=== PATIENT | male | born 1955 | race Caucasian/White ===

== ENCOUNTER → 2021-09-02 10:06 | Outpatient (CLI) | payer MEDICARE, BC, SELFPAY | PROVIDERS: Visit Provider Ophthalmology | DX: Z01.812 Encounter for preprocedural laboratory examination (principal); Z20.822 Contact with and (suspected) exposure to COVID-19 | CPT/HCPCS: C9803; U0003; U0005 ==

== ENCOUNTER 2021-09-03 09:03 | Day surgery (SDC) | payer MEDICARE, MEDICAID, SELFPAY ==
[2021-09-03] VITALS (9 sets, daily range): BP systolic 109–137; BP diastolic 55–83; PULSE 63–79; RESP 16–19; TEMP 36.3–37.1; O2SAT 98–100; BMI 22.1
[2021-09-03 18:27] LABS: POC Glucose,Bedside 114 (70-110)
== END 2021-09-03 11:40 | disposition home or self-care (01) ==
PROVIDERS: Visit Provider Ophthalmology
DX: H26.9 Unspecified cataract (principal); E11.9 Type 2 diabetes mellitus without complications; Z72.0 Tobacco use
CPT/HCPCS: 66984; 82962; V2632

== ENCOUNTER → 2021-09-14 09:59 | Outpatient (CLI) | payer MEDICARE, BC, SELFPAY | PROVIDERS: Visit Provider Ophthalmology | DX: Z01.812 Encounter for preprocedural laboratory examination (principal); Z20.822 Contact with and (suspected) exposure to COVID-19 | CPT/HCPCS: C9803; U0003; U0005 ==

== ENCOUNTER 2021-09-17 07:56 | Day surgery (SDC) | payer MEDICARE, MEDICAID, SELFPAY ==
[2021-09-12 13:00] VITALS: BMI 22.5
[2021-09-17] VITALS (7 sets, daily range): BP systolic 111–129; BP diastolic 65–83; PULSE 66–78; RESP 16–18; TEMP 36.4–36.5; O2SAT 98–100
[2021-09-17 08:43] LABS: POC Glucose,Bedside 119 (70-110)
== END 2021-09-17 10:28 | disposition home or self-care (01) ==
LOC: OR 07:56
PROVIDERS: Visit Provider Ophthalmology
DX: H25.812 Combined forms of age-related cataract, left eye (principal); E11.9 Type 2 diabetes mellitus without complications
CPT/HCPCS: 66984; 82962; V2632

== ENCOUNTER 2024-02-17 13:51 | Emergency (ER) | payer MEDICARE, SELFPAY ==
[2024-02-17] VITALS (8 sets, daily range): BP systolic 114–137; BP diastolic 77–86; PULSE 68–86; RESP 13–18; TEMP 36.6; O2SAT 96–99; BMI 20.9; BMI 23.7
--- NOTE | 2024-02-17 13:53 | ECG_ITS ---
APPROVED REPORT Exam: Resting ECG HR:78 bpm ECG Measurements Heart Rate 78 AXES VA 202 P 75 QRSd 158 QRS -87 QT 400 T 94 QTc 433 Conclusion SINUS RHYTHM POSSIBLE RIGHT ATRIAL ENLARGEMENT [0.25mV P-WAVE] LEFT AXIS DEVIATION [QRS AXIS < -30] INTRAVENTRICULAR CONDUCTION DELAY [130+ ms QRS DURATION] ANTEROLATERAL MYOCARDIAL INFARCTION , PROBABLY RECENT [40+ ms Q WAVE IN I/aVL/V3-V6] UNCONFIRMED REPORT Electronically signed by : MAYITO ISSA, 02/19/2024 05:44:07
--- NOTE | 2024-02-17 13:55 | PC.NURSE ---
Provider Malik Jaquez at bedside, EKG obtained.
--- NOTE | 2024-02-17 13:56 | PC.NURSE ---
blood-work sent to lab, orders placed per protocol
--- NOTE | 2024-02-17 13:59 | XR_ITS ---
FINAL REPORT CLINICAL HISTORY: Shortness of breath, CP COMPARISON: None FINDINGS: The heart size is mildly enlarged. A left-sided pacemaker is noted. The mediastinum is normal. Chronic changes are noted in both lungs. There is no focal infiltrate or edema. There are no pleural effusions. There is no pneumothorax. There is no osseous abnormality. IMPRESSION: Mild cardiomegaly without acute cardiopulmonary process Reviewed, Interpreted and Dictated by Serjio Giles MD Transcribed by Nevin Wayne Authenticated and [facility]
--- NOTE | 2024-02-17 14:01 | ED_ITS ---
Discharge Plan Disposition Patient Disposition: Left Against Medical Advice Condition: Fair Prescriptions Prescriptions: No Action atorvastatin 10 MG tablet 10 mg PO HS metoprolol tartrate 50 MG tablet 50 mg PO BID metformin 500 MG tablet extended release 24 hr 500 mg PO BID aspirin 325 MG tablet 325 mg PO DAILY Referrals Follow up/Referrals: Provider,Referral, MD [Referring] - See instructions Activity Restrictions/Add. Instructions Additional Instructions/Restrictions: Return to the emergency department any worsening signs or symptoms, follow-up with jacket changer and other doctors as directed. Clinical Impressions Clinical Impression: Encounter for care of pacemaker Print Language Print Language: Kyrgyz Discharge ED Provider: Malcolm Whipple General Adult HPI <RAHUL Calle - Last Filed: 02/17/24 16:23> General Chief complaint: Recheck/Abnormal Lab/Rx Stated complaint: Shocked by defibrillator while shoveling snow Time Seen by Provider: 02/17/24 13:57 Mode of Arrival: EMS Source of Information: Patient Limitations: No Limitations History of Present Illness HPI narrative: 68-year-old male presents to the emergency department via EMS for being shocked by my defibrillator while shoveling snow , he states approximately 11:30 AM he was shoveling snow in his driveway when he was shocked twice . By his defibrillator. Patient's defibrillator was placed in 2017 at [facility], for an unknown reason patient has not any anticoagulant therapy he does take an antiplatelet being through 25 mg p.o. aspirin daily he is taken this medication today. This is never happened to him before, denies any LOC, denies any chest pain currently, denies any cough, shortness of breath, nausea vomiting, fever chills, denies abdominal pain constipation diarrhea no urinary type symptomatology, patient is current everyday smoker, other past medical history consistent with hyperlipidemia, hypertension, and T2DM/prediabetes. [place] any other substance use and distress vitals are unremarkable. Per EMS, patient was noted to have left bundle branch block on EKG, was confirmed by jacket changer (Dr. Miranda). He was advised to come to the emergency department for interrogation of the patient's pacemaker, patient has a [employer] pacemaker. Onset (ago): hour(s) Related Data Home Medications ?Medication ?Instructions ?Recorded ?Confirmed aspirin 325 mg tablet 325 mg PO DAILY Heartburn 09/12/21 09/12/21 atorvastatin 10 mg tablet 10 mg PO HS Cholesterol 09/12/21 09/12/21 metformin 500 mg tablet,extended 500 mg PO BID Diabetes 09/12/21 09/17/21 release 24 hr metoprolol tartrate 50 mg tablet 50 mg PO BID BP 09/12/21 09/12/21 Allergies Allergy/AdvReac Type Severity Reaction Status Date / Time NO KNOWN DRUG ALLERGIES Allergy Unknown Uncoded 01/27/17 15:38 [facility] <RAHUL Calle - Last Filed: 02/17/24 16:23> [facility] Disclaimer: The information contained in this section may have been updated after the patient was seen, as this information can be updated by other users. Social History Smoking Status: Current every day smoker tobacco type: cigarettes packs per day: 1 alcohol intake: never current occupational status: retired Travel in the last 8 weeks: None current occupational exposures/hazards: No caffeine: Yes Have you lived/traveled outside US in past 30 days?: No Contact w/someone who lives/traveled outside US past 30 days?: No Exposure to someone with infectious disease in past 14 days?: No Do you have a fever (greater than 100.4 F or 38 C)?: No Have you tested positive for COVID-19: No Exposed to someone with COVID-19 in past 14 days?: No Do you have a sore throat?: No Do you have a cough?: No Do you have any weakness?: No Do you have any diarrhea?: No Are you experiencing any unusual bleeding?: No Do you have any muscle aches/pain?: No Do you have any abdominal pain?: No Are you experiencing loss of taste or smell?: No Other Medical History Have you received the Flu Vaccine for this season: Yes Have you received the Pneumonia Vaccine: No <RAHUL Calle - Last Filed: 02/17/24 16:23> ROS Obtained: Yes All systems reviewed & no additional complaints except as documented Physical Exam <RAHUL Calle - Last Filed: 02/17/24 16:23> General General appearance: alert and in no apparent distress Head Head exam: atraumatic and normocephalic Eye Eye exam: Present normal appearance, PERRL and EOMI Neck Neck exam: Present full ROM; Absent meningismus Chest Chest inspection: Present normal inspection Respiratory Respiratory exam: Absent respiratory distress, wheezes, stridor, accessory muscle use or prolonged expiratory phase Cardiovascular Cardiovascular exam: Present regular rate and other (Pulses equal and symmetric in bilateral upper and lower extremities) Abdominal Exam Abdominal exam: Absent distention, tenderness, guarding, rebound or rigidity Extremities Exam Extremities exam: Absent edema Neurological Exam Neurological exam: Present alert Psychiatric Psychiatric exam: Present normal affect Skin Skin exam: Present warm and dry Medical Decision Making <RAHUL Calle - Last Filed: 02/17/24 16:23> Medical Records Medical records reviewed: Yes I reviewed the patient's medical records. Screening: Per USPSTF and CDC recommendations, given the prevalence of disease in our region, it is our hospital?s policy to screen for HIV and viral Hepatitis for all patients aged 18 and over and those with ongoing risk factors. Wilmer Inquiry Pt receiving controlled substance: No Wilmer was queried for this patient: No Vital Signs: 02/17/24 13:51 02/17/24 14:00 02/17/24 14:29 Temperature 97.9 F Temperature Source Oral Pulse Rate 86 76 Pulse Rate [Apical] 80 Respiratory Rate 18 Blood Pressure 124/77 127/83 Blood Pressure [Right Arm] 128/84 Blood Pressure Mean [Right Arm] 98 Blood Pressure Source Blood Pressure Source [Right Arm] Automatic Cuff Blood Pressure Position Blood Pressure Position [Right Arm] Sitting 02 Sat by Pulse Oximetry 99 99 97 Oxygen Delivery Method Room Air Room Air Room Air 02/17/24 14:30 02/17/24 15:00 02/17/24 15:30 Temperature Temperature Source Pulse Rate 68 76 80 Pulse Rate [Apical] Respiratory Rate 15 13 Blood Pressure 115/80 137/86 Blood Pressure [Right Arm] Blood Pressure Mean [Right Arm] Blood Pressure Source Blood Pressure Source [Right Arm] Blood Pressure Position Blood Pressure Position [Right Arm] 02 Sat by Pulse Oximetry 96 96 98 Oxygen Delivery Method Room Air Room Air 02/17/24 15:59 02/17/24 16:20 Temperature 97.9 F Temperature Source Oral Pulse Rate 74 76 Pulse Rate [Apical] Respiratory Rate 18 Blood Pressure 114/77 114/77 Blood Pressure [Right Arm] Blood Pressure Mean [Right Arm] Blood Pressure Source Automatic Cuff Blood Pressure Source [Right Arm] Blood Pressure Position Sitting Blood Pressure Position [Right Arm] 02 Sat by Pulse Oximetry 96 Oxygen Delivery Method Room Air Lab Data Lab results reviewed: Yes I reviewed the patient's lab results. Lab Results 02/17/24 13:53: WBC 7.1, RBC 4.83, Hgb 14.6, Hct 43.5, MCV 90.1, MCH 30.2, MCHC 33.6, RDW 13.8, Plt Count 226, MPV 10.7 H, Neut % (Auto) 69.7, Lymph % (Auto) 18.9, Pondera % (Auto) 7.2, Eos % (Auto) 3.3, Baso % (Auto) 0.6, Neut # (Auto) 4.9, Lymph # (Auto) 1.3, Ponder[place] # (Auto) 0.5, Eos # (Auto) 0.2, Baso # (Auto) 0.0, PT 10.9, INR 0.97, Sodium 138, Potassium 5.1, Chloride 107, Carbon Dioxide 24, Anion Gap 12.1, BUN 20, Creatinine 1.10, Estimated Creat Clear 72, Estimated GFR 67, Est GFR ( Amer) 81, Glucose 126 H, Calcium 9.2, Magnesium 1.7, Total Bilirubin 0.6, AST 34, ALT 27, Alkaline Phosphatase 59, Troponin I 0.20 H, N T-Pro-B Natriuret Pep 2970 H, Total Protein 7.2, Albumin 4.4, Globulin 2.8, Albumin/Globulin Ratio 1.6 02/17/24 13:53 02/17/24 13:53 Orders (Tests/Meds): ORDERS Category Date Time Status XR chest portable Stat Exams 02/17/24 13:59 Completed Complete Blood Count Auto Diff Stat Lab 02/17/24 13:53 Completed Comprehensive Metabolic Panel Stat Lab 02/17/24 13:53 Completed Magnesium Stat Lab 02/17/24 13:53 Completed NT Pro Brain Natriuretic Pep. Stat Lab 02/17/24 13:53 Completed PT INR [Prothrombin Time INR] Stat Lab 02/17/24 13:53 Completed Troponin I Stat Lab 02/17/24 13:53 Completed Medical Decision Narrative: 68-year-old male presents the emergency department via EMS for being shocked by his defibrillator, see HPI for detail past medical history, differential diagnose include but not limited to cardiac arrhythmia, electrolyte disturbance, ACS, pacemaker malfunction. I discussed patient case with attending physician Dr. Javier Will obtain basic laboratory studies, full cardiac workup to include EKG, PT/INR, troponin, proBNP chest x-ray. Patient is already taken 325 mg p.o. aspirin today I along with the attending. Reviewed the patient's EKG, sinus rhythm with 78 bpm, MO was mildly elongated at 202, QT interval within normal limits there is no STEMI, looks to be left bundle branch block unsure of chronicity, reviewed this patient's EKG at 1354. CMP unremarkable Coags within normal limits. Perform repeat EKG at 1408, NSR at 76 bpm parable within normals, QT interval within normal limits, there is concern for anterior lateral ST elevation and the EKG is read as an acute [place], I do not think this is an acute STEMI. Sent both EKGs to the on-call jacket changer Dr. Miranda 1421 he advises there is no STEMI. Troponin is minimally elevated at 0.20 proBNP is elevated at 2970 otherwise unremarkable CMP. I was able to discuss this patient's case with the attending jacket changer Dr. Miranda's nurse over the phone (Annabelle) at approximately 3 PM, she will talk to Dr. Miranda and give me a call back. I reviewed the patient's chest x-ray along the corresponding radiologic report mild cardiomegaly without any acute cardiopulmonary process, there is a left- sided pacemaker noted. Cardiac pacemaker rfid technician interrogated the patient's pacemaker, patient was shocked approximately 4 times, no evidence of V. tach or V-fib, patient had some sinus tachycardia at 170 bpm and his V. tach zone according to the rfid technician, thus shock was delivered, he has a single chamber pacemaker. CBC unremarkable. I was notified by nursing staff at approximately 4:15 PM that the patient requesting to leave AMA when asked about this patient states I I have to leave on my ride is here ., I voiced understanding about his elevated troponin and further recommendation of cardiology which are pending at this time, patient understands acknowledged all risk including , would still like to sign out AGAINST MEDICAL ADVICE. Strict ED return precaution given to the patient at the bedside patient voiced understanding of the current treatment plan/discharge plan, GCS of 15 he is alert oriented x 3. <Malcolm Whipple MD - Last Filed: 02/19/24 22:15> Vital Signs: 02/17/24 13:51 02/17/24 14:00 02/17/24 14:29 Temperature 97.9 F Temperature Source Oral Pulse Rate 86 76 Pulse Rate [Apical] 80 Respiratory Rate 18 Blood Pressure 124/77 127/83 Blood Pressure [Right Arm] 128/84 Blood Pressure Mean [Right Arm] 98 Blood Pressure Source Blood Pressure Source [Right Arm] Automatic Cuff Blood Pressure Position Blood Pressure Position [Right Arm] Sitting 02 Sat by Pulse Oximetry 99 99 97 Oxygen Delivery Method Room Air Room Air Room Air 02/17/24 14:30 02/17/24 15:00 02/17/24 15:30 Temperature Temperature Source Pulse Rate 68 76 80 Pulse Rate [Apical] Respiratory Rate 15 13 Blood Pressure 115/80 137/86 Blood Pressure [Right Arm] Blood Pressure Mean [Right Arm] Blood Pressure Source Blood Pressure Source [Right Arm] Blood Pressure Position Blood Pressure Position [Right Arm] 02 Sat by Pulse Oximetry 96 96 98 Oxygen Delivery Method Room Air Room Air 02/17/24 15:59 02/17/24 16:20 Temperature 97.9 F Temperature Source Oral Pulse Rate 74 76 Pulse Rate [Apical] Respiratory Rate 18 Blood Pressure 114/77 114/77 Blood Pressure [Right Arm] Blood Pressure Mean [Right Arm] Blood Pressure Source Automatic Cuff Blood Pressure Source [Right Arm] Blood Pressure Position Sitting Blood Pressure Position [Right Arm] 02 Sat by Pulse Oximetry 96 Oxygen Delivery Method Room Air Lab Data Lab Results 02/17/24 13:53: WBC 7.1, RBC 4.83, Hgb 14.6, Hct 43.5, MCV 90.1, MCH 30.2, MCHC 33.6, RDW 13.8, Plt Count 226, MPV 10.7 H, Neut % (Auto) 69.7, Lymph % (Auto) 18.9, Pondera % (Auto) 7.2, Eos % (Auto) 3.3, Baso % (Auto) 0.6, Neut # (Auto) 4.9, Lymph # (Auto) 1.3, Pondera # (Auto) 0.5, Eos # (Auto) 0.2, Baso # (Auto) 0.0, PT 10.9, INR 0.97, Sodium 138, Potassium 5.1, Chloride 107, Carbon Dioxide 24, Anion Gap 12.1, BUN 20, Creatinine 1.10, Estimated Creat Clear 72, Estimated GFR 67, Est GFR ( Amer) 81, Glucose 126 H, Calcium 9.2, Magnesium 1.7, Total Bilirubin 0.6, AST 34, ALT 27, Alkaline Phosphatase 59, Troponin I 0.20 H, N T-Pro-B Natriuret Pep 2970 H, Total Protein 7.2, Albumin 4.4, Globulin 2.8, Albumin/Globulin Ratio 1.6 Orders (Tests/Meds): ORDERS Category Date Time Status XR chest portable Stat Exams 02/17/24 13:59 Completed Complete Blood Count Auto Diff Stat Lab 02/17/24 13:53 Completed Comprehensive Metabolic Panel Stat Lab 02/17/24 13:53 Completed Magnesium Stat Lab 02/17/24 13:53 Completed NT Pro Brain Natriuretic Pep. Stat Lab 02/17/24 13:53 Completed PT INR [Prothrombin Time INR] Stat Lab 02/17/24 13:53 Completed Troponin I Stat Lab 02/17/24 13:53 Completed Medical Decision Narrative: 68-year-old male presents the emergency department via EMS for being shocked by his defibrillator, see HPI for detail past medical history, differential diagnose include but not limited to cardiac arrhythmia, electrolyte disturbance, ACS, pacemaker malfunction. I discussed patient case with attending physician Dr. Javier Will obtain basic laboratory studies, full cardiac workup to include EKG, PT/INR, troponin, proBNP chest x-ray. Patient is already taken 325 mg p.o. aspirin today I along with the attending. Reviewed the patient's EKG, sinus rhythm with 78 bpm, MO was mildly elongated at 202, QT interval within normal limits there is no STEMI, looks to be left bundle branch block unsure of chronicity, reviewed this patient's EKG at 1354. CMP unremarkable Coags within normal limits. Perform repeat EKG at 1408, NSR at 76 bpm parable within normals, QT interval within normal limits, there is concern for anterior lateral ST elevation and the EKG is read as an acute [place], I do not think this is an acute STEMI. Sent both EKGs to the on-call jacket changer Dr. Miranda 1421 he advises there is no STEMI. Troponin is minimally elevated at 0.20 proBNP is elevated at 2970 otherwise unremarkable CMP. I was able to discuss this patient's case with the attending jacket changer Dr. Miranda's nurse over the phone (Annabelle) at approximately 3 PM, she will talk to Dr. Miranda and give me a call back. I reviewed the patient's chest x-ray along the corresponding radiologic report mild cardiomegaly without any acute cardiopulmonary process, there is a left- sided pacemaker noted. Cardiac pacemaker rfid technician interrogated the patient's pacemaker, patient was shocked approximately 4 times, no evidence of V. tach or V-fib, patient had some sinus tachycardia at 170 bpm and his V. tach zone according to the rfid technician, thus shock was delivered, he has a single chamber pacemaker. CBC unremarkable. I was notified by nursing staff at approximately 4:15 PM that the patient requesting to leave AMA when asked about this patient states I I have to leave on my ride is here ., I voiced understanding about his elevated troponin and further recommendation of cardiology which are pending at this time, patient understands acknowledged all risk including , would still like to sign out AGAINST MEDICAL ADVICE. Strict ED return precaution given to the patient at the bedside patient voiced understanding of the current treatment plan/discharge plan, GCS of 15 he is alert oriented x 3. Malcolm Whipple MD GO. I discussed the case with the GODFREY, and approved of workup and initial treatment. Patient with capacity for AGAINST MEDICAL ADVICE discharge at this time. He is able to express an understanding of the risks of AGAINST MEDICAL ADVICE discharge, including disability and or . He was highly encouraged to return should he change his mind about foregoing further workup and management. Critical Care <RAHUL Calle - Last Filed: 02/17/24 16:23> Critical Care Time Critical Care Time: No
[2024-02-17 14:06] LABS: Eosinophils # 0.2 K/mm3 (0.0-0.4); Eosinophils % 3.3 % (0.1-12.0); Hemoglobin 14.6 g/dL (14.1-18.0); Lymphocytes # 1.3 K/mm3 (0.7-4.5); Monocytes # 0.5 K/mm3 (0.1-1.0); Neutrophils % 69.7 % (37.0-80.0)
--- NOTE | 2024-02-17 14:08 | ECG_ITS ---
APPROVED REPORT Exam: Resting ECG HR:76 bpm ECG Measurements Heart Rate 76 AXES PA 195 P 74 QRSd 161 QRS -85 QT 423 T 91 QTc 454 Conclusion SINUS RHYTHM POSSIBLE RIGHT ATRIAL ENLARGEMENT [0.25mV P-WAVE] INTRAVENTRICULAR CONDUCTION DELAY [130+ ms QRS DURATION] ANTEROLATERAL MYOCARDIAL INFARCTION , PROBABLY RECENT [40+ ms Q WAVE IN I/aVL/V3-V6] UNCONFIRMED REPORT Electronically signed by : MAYITO ISSA, 02/19/2024 05:45:14
[2024-02-17 14:09] LABS: Alanine Aminotransferase 27 U/L (12-78); Albumin Level 4.4 g/dl (3.5-5.0); Albumin/Globulin Ratio 1.6 (1.1-1.8); Alkaline Phosphatase 59 U/L (38-126); Anion Gap 12.1 mEq/L (5-15); Aspartate Amino Transferase 34 U/L (17-59); Bilirubin,Total 0.6 mg/dl (0.2-1.3); Blood Urea Nitrogen 20 mg/dl (9-20); Calcium 9.2 mg/dl (8.4-10.2); Carbon Dioxide 24 mmol/L (22.0-30.0); Chloride 107 mmol/L (98-107); Creatinine Clearance Estimated 72 mL/min (50-200); Estimated Glomerular Filt Rate 67 ml/min (>60); GFR (African American) 81 ML/MIN (>60); Globulin 2.8 g/dL (1.3-3.2); Glucose 126 mg/dl (74-100); Magnesium 1.7 mg/dl (1.6-2.3); Potassium 5.1 mmoL/L (3.5-5.1); Sodium 138 mmol/L (136-145); Total Protein,Serum 7.2 g/dl (6.3-8.2)
[2024-02-17 14:11] LABS: INR 0.97 (0.9-1.1); Prothrombin Time 10.9 seconds (10.1-12.5)
[2024-02-17 14:21] LABS: NT Pro Brain Natriuretic Pep. 2970 pg/mL (0-125)
[2024-02-17 15:31] LABS: Basophils % 0.6 % (0.1-2.0); Hematocrit 43.5 % (42.0-52.0); Lymphocytes % 18.9 % (10-50); Mean Corpuscular HGB Conc 33.6 g/dL (31.8-35.4); Mean Corpuscular Hemoglobin 30.2 pg (27.0-31.2); Mean Corpuscular Volume 90.1 fl (80-94); Mean Platelet Volume 10.7 fl (7.4-10.4); Monocytes % 7.2 % (1.7-9.3); Neutrophils # 4.9 K/mm3 (1.8-7.8); Platelet Count 226 K/mm3 (142-424); Red Blood Count 4.83 M/mm3 (4.60-6.20); Red Cell Distribution Width 13.8 % (11.5-17.5); White Blood Count 7.1 K/mm3 (4.8-10.8)
--- NOTE | 2024-02-17 15:43 | PC.NURSE ---
VIANCA BRISCOE PA-C AT BEDSIDE TO UPDATE PT
== END 2024-02-17 16:20 | disposition left against medical advice (07) ==
PROVIDERS: Physician Assistant; Emergency Provider Emergency Medicine; PCP Family Medicine
DX: Z45.018 Encounter for adjustment and management of other part of cardiac pacemaker (principal); Z53.29 Procedure and treatment not carried out because of patient's decision for other reasons
CPT/HCPCS: 71045; 80053; 83735; 83880; 84484; 85025; 85610; 93005; 99283

== ENCOUNTER 2024-09-10 15:42 | Inpatient (IN) | payer MEDICARE, SELFPAY ==
[2024-09-10] VITALS (60 sets, daily range): BP systolic 122–144; BP diastolic 71–93; PULSE 74–220; RESP 11–30; TEMP 36.8–37.2; O2SAT 95–97; BMI 21.2; BMI 20.2
--- NOTE | 2024-09-10 15:45 | ECG_ITS ---
APPROVED REPORT Exam: Resting ECG HR:108 bpm ECG Measurements Heart Rate 108 AXES GA 155 P 101 QRSd 112 QRS 269 QT 308 T 93 QTc 371 Conclusion SINUS TACHYCARDIA WITH FREQUENT VENTRICULAR PREMATURE COMPLEXES RIGHT ATRIAL ENLARGEMENT [0.3mV P-WAVE] POSSIBLE LEFT ATRIAL ENLARGEMENT [-0.1mV P-WAVE IN V1/V2] RIGHT AXIS DEVIATION [QRS AXIS > 100] LOW QRS VOLTAGE IN PRECORDIAL LEADS [QRS DEFLECTION < 1.0 mV IN CHEST LEADS] POSSIBLE RIGHT VENTRICULAR CONDUCTION DELAY [RSR (QR) IN V1/V2] ANTEROLATERAL MYOCARDIAL INFARCTION , PROBABLY RECENT [40+ ms Q WAVE IN I/aVL/V3-V6] No STEMI Electronically signed by : TAYA STEIN, 09/11/2024 07:04:30
--- NOTE | 2024-09-10 15:50 | PC.NURSE ---
pgd Jakob @ this time
[2024-09-10] MEDS: METOPROLOL TARTRATE 5MG/5ML VIAL 5 MG IV (15:53)
--- OUTSIDE RECORDS SUMMARY | 2024-09-10 15:53 | XMS_ITS | Clinical Summary ---
Author Organization Healthcare Address [address] [place] [address] Care Team Providers Care Armoured Car Escort Name Role Phone Socorro Christian DO Primary Care Provider [phone] Allergies No known active allergies Medications metFORMIN (Glucophage) 500 MG tablet Take 1 tablet (500 mg) by mouth 2 (two) times a day with meals. Active metoprolol tartrate (Lopressor) 25 MG tablet Take 0.5 tablets (12.5 mg) by mouth 2 (two) times a day. Active aspirin 325 MG tablet Take 1 tablet (325 mg) by mouth 1 (one) time each day. Active DULoxetine (Cymbalta) [address] capsule Take 30 mg by mouth 1 (one) time each day. Do not crush or chew. Active atorvastatin (Lipitor) 40 MG tablet Take 1 tablet (40 mg) by mouth 1 (one) time each day. Active cyanocobalamin 1000 MCG tablet Take 1 tablet (1,000 mcg) by mouth 1 (one) time each day. 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 Diabetes Hypertension Hyperlipidemia Resolved Problems Problem Noted Date Diagnosed Date Resolved Date Mass of left parotid gland 06/18/2020 0 07/30/2020 Immunizations Immunization Administration Dates Next Due Pneumococcal 20-yudith Conj Vaccine 04/30/2022 Social History Tobacco Use Types Packs/Day Years Used Date Smoking Tobacco: Every Day Cigarettes 1 53.6 Started: 1971 Smokeless Tobacco: Never Tobacco Cessation:Ready to Q uit: Not Asked; Counseling Given: Not Answered Alcohol Use Standard Drinks/Week Comments Not Currently 0 (1 standard drink = 0.6 oz pur e alcohol) PHQ-2 Answer Date Recorded Patient Health Questionnaire-2 Score 0 03/07/2024 PHQ-9 Answer Date Recorded Patient Health Questionnaire-9 Score 0 03/07/2024 Sex and Gender Information Value Date Recorded Sex Assigned at Not on file Legal Sex Male 7:55 PM EDT Gender Identity Not on file Sexual Orientation Not on file Last Filed Vital Signs Vital Sign Reading Time Taken Comments Blood Pressure 113/74 03/07/2024 1:59 PM EST Pulse 79 03/07/2024 1:59 PM EST Temperature 36.4 C (97.6 F) 03/07/2024 1:59 PM EST Respiratory Rate 16 03/07/2024 1:59 PM EST Oxygen Saturation 98% 03/07/2024 1:59 PM EST RA Inhaled Oxygen Concentration - - Weight 79.5 kg (175 lb 4.3 oz) 03/07/2024 1:59 P M EST Height 191.8 cm (6' 3.5 ) 03/07/2024 1:59 PM EST Body Mass Index 21.62 03/07/2024 1:59 PM EST Plan of Treatment Health Maintenance Due Date Last Done Comments [facility]-Depression Screening 1955 [facility]-/Child/Adol SDOH Screenings 1955 [facility]- SDOH Screenings 10/01/1973 [facility]-Adult SDOH Screenings 10/01/1973 [facility]-DTaP,Tdap,and Td Vaccine s (1 - Tdap) 10/01/1974 CT Colonography 10/01/2000 Colonoscopy 10/01/2000 FIT-DNA 10/01/2000 FIT 10/01/2000 FOBT 10/01/2000 Sigmoidoscopy 10/01/2000 [facility]-Colorectal Cancer Screening 10/01/2000 [facility]-Zoster Vaccines (1 of 2) 10/01/2005 [id number] Vaccine ( season) 2023 01/17/2021, 07/19/2020, 06/21/2020 [facility]-Influenza Vaccine (#1) 2024 [facility]-RSV Vaccine: 60+ Years o r (1 - 1-dose 75+ series) 10/01/2030 [facility]-Pneumococcal Vaccine: 50 + Years Completed 04/30/2022 HPV Vaccines Aged Out No longer eligi ble based on patient's age to complete this topic [facility]-HIB Vaccines Aged Out No longer e ligible based on patient's age to complete this topic [facility]-Hepatitis A Vaccines Aged Out No longer eligible based on patient's age to complete this topic [facility]-IPV Vaccines Aged Out No longer e ligible based on patient's age to complete this topic [facility]-Rotavirus Vaccines Aged Out No lo nger eligible based on patient's age to complete this topic Insurance MEDICARE Care Teams Armoured Car Escort Relationship Specialty Start Date End Date Socorro Christian DO [address] [place] [address] PCP - General 06/22/20
--- OUTSIDE RECORDS SUMMARY | 2024-09-10 15:53 | XMS_ITS | Encounter Summary ---
Author Organization Healthcare Address [address] [place] [address] Care Team Providers Care Utility Helicopter Repairer Name Role Phone Socorro Christian DO Primary Care Provider [phone] Reason for Referral * Consultation (Routine) - Closed Specialty Diagnoses / Procedures Referred By Nora t Referred To Contact Pulmonary Disease / Pulmonology Diagnoses Ground glass opacity present on imaging of lung Socorro Christian, DO [address] [place] [address] Phone: tel: fax: [facility] [address] [place] [address] Phone: tel: fax: Referral ID Status Reason Start Date Expiration Date V isits Requested Visits Authorized [id number] Closed Specialty Services Required 01/26/2024 07/27/2025 1 1 Encounter Details Date Type Department Care Team (Late st Contact Info) Description 01/26/2024 Community Orders Community Practice [address] [place] [address] Socorro Christian, DO [address] [place] [address] Ground glass opacity present on imaging of lung (Primary Dx) Social History Tobacco Use Types Packs/Day Years Used Date Smoking Tobacco: Every Day Cigarettes 1 45 Smokeless Tobacco: Never Alcohol Use Standard Drinks/Week Comments Not Currently 0 (1 standard drink = 0.6 oz pur e alcohol) Sex and Gender Information Value Date Recorded Sex Assigned at Not on file Legal Sex Male 7:55 PM EDT Gender Identity Not on file Sexual Orientation Not on file documented as of this encounter Plan of Treatment Scheduled Referrals Name Type Priority Associated Diagnoses Order Schedule Ambulatory referral to Pulmonology Outpatient Referral Routine Ground glass opacity present on imaging of lung Expected: 01/26/2024 (Approximate), Expires: 07/26/2025 documented as of this encounter Visit Diagnoses Diagnosis Ground glass opacity present on imaging of lung- Primary documented in this encounter Care Teams Utility Helicopter Repairer Relationship Specialty Start Date End Date Socorro Christian DO [address] [place] [address] PCP - General 06/22/20 documented as of this encounter
--- OUTSIDE RECORDS SUMMARY | 2024-09-10 15:53 | XMS_ITS | Encounter Summary ---
Author Organization Healthcare Address [address] [place] [address] Care Team Providers Care Broadcast Designer Name Role Phone Socorro Christian DO Primary Care Provider [phone] Encounter Details Date Type Department Care Team ([facility] st Contact Info) Description 05/20/2022 Orders Only External Location [address] [place] [address] Provider, External Social History Tobacco Use Types Packs/Day Years [...] as of this encounter Plan of Treatment Not on file documented as of this encounter Procedures Procedure Name Priority Date/Time Associated Diagnosis Comments CT ABDOMEN OUTSIDE IMAGES 05/20/2022 10:25 AM EDT documented in this encounter Results * CT ABDOMEN OUTSIDE IMAGES (05/20/2022 10:25 AM EDT) Anatomical Region Laterality Modality Computed Tomogra phy 05/20/2022 10:2 5 AM EDT us External Provider IMG CT PROCEDURES Final Result documented in this encounter Visit Diagnoses Not on filedocumented in this encounter Care Teams Broadcast Designer Relationship Specialty Start Date End Date Socorro Christian DO [address] [place] [address] PCP - General 06/22/20 documented as of this encounter
--- OUTSIDE RECORDS SUMMARY | 2024-09-10 15:53 | XMS_ITS | Encounter Summary ---
Author Organization Healthcare Address [address] [place] [address] Care Team Providers Care Advertising Sales Associate Name Role Phone Socorro Christian DO Primary Care Provider [phone] Encounter Details Date Type Department Care Team ([facility] st Contact Info) Description 01/21/2024 Orders Only External Location [address] [place] [address] Provider, External Social History Tobacco Use Types [...] Name Priority Date/Time Associated Diagnosis Comments CT OUTSIDE IMAGES 01/21/2024 3:14 PM EST documented in this encounter Results * CT OUTSIDE IMAGES (01/21/2024 3:14 PM EST) Anatomical Region Laterality Modality Computed Tomogra phy 01/21/2024 3:14 PM EST us External Provider IMG CT PROCEDURES Final Result documented in this encounter Visit Diagnoses Not on filedocumented in this encounter Care Teams Advertising Sales Associate Relationship Specialty Start Date End Date Socorro Christian DO [address] [place] [address] PCP - General 06/22/20 documented as of this encounter
[2024-09-10] MEDS: AMIODARONE HCL 150 MG in DEXTROSE 5 % IN WATER 100 ML 600 MG IV (15:55)
[2024-09-10] MEDS: MAGNESIUM SULFATE IN WATER 2 GM/50 ML PIGGYBACK IV (15:57)
--- NOTE | 2024-09-10 15:58 | ECG_ITS ---
APPROVED REPORT Exam: Resting ECG HR:173 bpm ECG Measurements Heart Rate 173 AXES QRSd 154 QRS -87 QT 291 T 83 QTc 384 Conclusion UNCERTAIN REGULAR RHYTHM INTRAVENTRICULAR CONDUCTION DELAY [130+ ms QRS DURATION] ANTEROLATERAL MYOCARDIAL INFARCTION , PROBABLY RECENT [40+ ms Q WAVE IN I/aVL/V3-V6] ACUTE MO UNCONFIRMED REPORT Electronically signed by : Moises Wiseman, 09/10/2024 22:51:26
[2024-09-10] MEDS: LACTATED RINGERS 1000ML 500 ML 999 ML IV (15:59)
[2024-09-10] MEDS: ASPIRIN 81MG CHEWABLE TABLET 324 MG PO (15:59)
[2024-09-10 16:02] LABS: Albumin Level 4.1 g/dl (3.5-5.0); Chloride 106 mmol/L (98-107); Sodium 138 mmol/L (136-145)
[2024-09-10 16:03] LABS: Potassium 3.6 mmoL/L (3.5-5.1)
[2024-09-10] MEDS: AMIODARONE HCL 900 MG in DEXTROSE 5 % IN WATER 500 ML 33.3 MG IV (16:03)
[2024-09-10 16:05] LABS: Alanine Aminotransferase 24 U/L (12-78); Albumin/Globulin Ratio 1.0 (1.1-1.8); Alkaline Phosphatase 85 U/L (38-126); Anion Gap 17.6 mEq/L (5-15); Aspartate Amino Transferase 41 U/L (17-59); Bilirubin,Total 0.8 mg/dl (0.2-1.3); Blood Urea Nitrogen 22 mg/dl (9-20); Carbon Dioxide 18 mmol/L (22.0-30.0); Creatinine,Serum 1.20 mg/dl (0.66-1.25); Estimated Glomerular Filt Rate 60 ml/min (>60); GFR (African American) 73 ML/MIN (>60); Globulin 4.2 g/dL (1.3-3.2); Phosphorous 3.1 mg/dl (2.5-4.5); Total Protein,Serum 8.3 g/dl (6.3-8.2)
[2024-09-10 16:06] LABS: Calcium 9.7 mg/dl (8.4-10.2); Glucose 224 mg/dl (74-100); Magnesium 1.8 mg/dl (1.6-2.3)
--- NOTE | 2024-09-10 16:08 | PC.NURSE ---
Addendum entered by Blanca Belle, EMT 09/10/24 16:31: pt stated wallet was left at home. FRENCH Zhang witnessed Original Note: pts belongings include underwear, belt, jeans, comb, and a pair of shoes were placed in belongings bag. bag was labeled with pts sticker and handed to pts sister.
[2024-09-10 16:11] LABS: Hematocrit 44.1 % (42.0-52.0); Hemoglobin 14.6 g/dL (14.1-18.0); Immature Granulocytes % 0.4 %; Mean Corpuscular HGB Conc 33.1 g/dL (31.8-35.4); Mean Corpuscular Hemoglobin 30.4 pg (27.0-31.2); Mean Corpuscular Volume 91.9 fl (80-94); Nucleated Red Blood Cells % 0 %; Platelet Count 244 K/mm3 (142-424); Red Blood Count 4.80 M/mm3 (4.60-6.20); Red Cell Distribution Width-SD 49.1 fL; White Blood Count 11.8 K/mm3 (4.8-10.8)
[2024-09-10 16:20] LABS: Troponin I 0.20 ng/ml (0.00-0.034)
--- NOTE | 2024-09-10 16:25 | PC.NURSE ---
Requested records for pt from [facility] @ this time
--- NOTE | 2024-09-10 16:36 | ED_ITS ---
Discharge Plan Disposition Patient Disposition: Admitted Prescriptions Prescriptions: No Action atorvastatin 10 MG tablet 10 mg PO HS metoprolol tartrate 50 MG tablet 50 mg PO BID metformin 500 MG tablet extended release 24 hr 500 mg PO BID aspirin 325 MG tablet 325 mg PO DAILY Referrals Follow up/Referrals: Provider,Referral, [Primary Care Provider, Medical] - See instructions Clinical Impressions Clinical Impression: Wide-complex tachycardia, AICD discharge, Myocardial injury, Cardiomyopathy, ischemic, Heart failure with reduced ejection fraction (HFrEF) Print Language Print Language: Syriac Discharge ED Provider: Mari Wiseman General Adult HPI General Chief complaint: Arrhythmia/Palpitations Stated complaint: defin shock Time Seen by Provider: 09/10/24 15:45 Mode of Arrival: Ambulatory Source of Information: Patient Description of Symptoms (Recalled from ER Triage Doc. by RN): PT presents to the ED for the evaluation of his defib shocking his chest. PT noted to be yelling and flailing his arms in the air each shock. History of Present Illness HPI narrative: Patient is a 68-year-old male presents today with multiple discharges from his defibrillator. Given the urgent and clinical nature of this not much more history was able to initially be found other than the fact the patient had an OH in 2018 he is followed by Dr. Saini and has ordered had a heart attack and had a similar presentation back during that time. He claims that he has no history of depressed ejection fraction heart failure etc. He had his AICD placed in around 2017 2018. Denies any chest pain or any other preceding symptoms. Has been shocked numerous times in the last several minutes. Related Data Home Medications ?Medication ?Instructions ?Recorded ?Confirmed aspirin 325 mg tablet 325 mg PO DAILY Heartburn 09/12/21 atorvastatin 10 mg tablet 10 mg PO HS Cholesterol 08/0 05/3109/12/21 metformin 500 mg tablet,extended 500 mg PO BID Diabete s 09/12/21 09/17/21 release 24 hr metoprolol tartrate 50 mg tablet 50 mg PO BID BP 09/1209/12/21 Allergies Allergy/AdvReac Type Severity Reaction Status Date / Time NO KNOWN DRUG ALLERGIES Allergy Unknown Uncoded 01/27/17 15:38 [facility] Disclaimer: The information contained in this section may have been updated after the patient was seen, as this information can be updated by other users. Social History Smoking Status: Current every day smoker tobacco type: cigarettes packs per day: 1 alcohol intake: never current occupational status: retired Travel in the last 8 weeks?: None current occupational exposures/hazards: No caffeine: Yes Have you lived/traveled outside US in past 30 days?: No Contact w/someone who lives/traveled outside US past 30 days?: No Exposure to someone with infectious disease in past 14 days?: No Do you have a fever (greater than 100.4 F or 38 C)?: No Have you tested positive for COVID-19?: No Exposed to someone with COVID-19 in past 14 days?: No Do you have a sore throat?: No Do you have a cough?: No Do you have any weakness?: No Do you have any diarrhea?: No Are you experiencing any unusual bleeding?: No Do you have any muscle aches/pain?: No Do you have any abdominal pain?: No Are you experiencing loss of taste or smell?: No Other Medical History Have you received the Flu Vaccine for this season: Yes Have you received the Pneumonia Vaccine: No ROS Obtained: Yes All systems reviewed & no additional complaints except as documented Physical Exam General General appearance: in distress (Diaphoretic his body is jumping off the bed as he is being shocked every few minutes right in front of us) Respiratory Respiratory exam: Present normal lung sounds bilaterally Cardiovascular Cardiovascular exam: Present normal rhythm and tachycardia (Heart rate around 200 on my initial palpation) Neurological Exam Neurological exam: Present alert, oriented X3 and other (Answering questions no loss of consciousness) Medical Decision Making Medical Records Screening: Per USPSTF and CDC recommendations, given the prevalence of disease in our region, it is our hospital?s policy to screen for HIV and viral Hepatitis for all patients aged 18 and over and those with ongoing risk factors. Wilmer Inquiry Pt receiving controlled substance: No Vital Signs: 09/10/24 16:20 09/10/24 16:27 09/10/24 16:28 Temperature 98.9 F Temperature Source Oral Pulse Rate 105 H 107 H Pulse Rate [Right] 220 H Respiratory Rate 13 23 14 Blood Pressure 132/82 133/83 Blood Pressure [Right Arm] 122/86 Blood Pressure Mean [Right Arm] 98 02 Sat by Pulse Oximetry 97 96 96 Oxygen Delivery Method Nasal Cannula Oxygen Flow Rate (LPM) 2 09/10/24 16:29 09/10/24 16:30 09/10/24 16:31 Temperature Temperature Source Pulse Rate 106 H 106 H 102 H Pulse Rate [Right] Respiratory Rate 21 15 19 Blood Pressure 132/79 134/80 132/82 Blood Pressure [Right Arm] Blood Pressure Mean [Right Arm] 02 Sat by Pulse Oximetry 95 96 96 Oxygen Delivery Method Oxygen Flow Rate (LPM) 09/10/24 16:32 09/10/24 16:33 09/10/24 16:34 Temperature Temperature Source Pulse Rate 109 H 107 H 103 H Pulse Rate [Right] Respiratory Rate 12 12 14 Blood Pressure 135/86 133/73 127/80 Blood Pressure [Right Arm] Blood Pressure Mean [Right Arm] 02 Sat by Pulse Oximetry 96 96 97 Oxygen Delivery Method Oxygen Flow Rate (LPM) 09/10/24 16:35 09/10/24 16:36 09/10/24 16:37 Temperature Temperature Source Pulse Rate 105 H 107 H 100 H Pulse Rate [Right] Respiratory Rate 16 13 12 Blood Pressure 135/88 138/84 129/79 Blood Pressure [Right Arm] Blood Pressure Mean [Right Arm] 02 Sat by Pulse Oximetry 97 96 96 Oxygen Delivery Method Oxygen Flow Rate (LPM) 09/10/24 16:38 09/10/24 16:40 09/10/24 16:41 Temperature Temperature Source Pulse Rate 102 H 101 H 99 H Pulse Rate [Right] Respiratory Rate 12 20 12 Blood Pressure 129/78 129/83 132/78 Blood Pressure [Right Arm] Blood Pressure Mean [Right Arm] 02 Sat by Pulse Oximetry 95 95 96 Oxygen Delivery Method Oxygen Flow Rate (LPM) 09/10/24 16:42 09/10/24 16:43 09/10/24 16:44 Temperature Temperature Source Pulse Rate 98 H 98 H 102 H Pulse Rate [Right] Respiratory Rate 25 H 12 20 Blood Pressure 128/75 124/74 131/81 Blood Pressure [Right Arm] Blood Pressure Mean [Right Arm] 02 Sat by Pulse Oximetry 95 96 96 Oxygen Delivery Method Oxygen Flow Rate (LPM) 09/10/24 16:45 09/10/24 16:46 09/10/24 16:47 Temperature Temperature Source Pulse Rate 100 H 101 H 102 H Pulse Rate [Right] Respiratory Rate 21 16 21 Blood Pressure 128/75 132/79 135/85 Blood Pressure [Right Arm] Blood Pressure Mean [Right Arm] 02 Sat by Pulse Oximetry 95 96 96 Oxygen Delivery Method Oxygen Flow Rate (LPM) 09/10/24 16:48 09/10/24 16:49 09/10/24 16:50 Temperature Temperature Source Pulse Rate 102 H 100 H 97 H Pulse Rate [Right] Respiratory Rate 26 H 29 H 23 Blood Pressure 133/80 131/77 127/78 Blood Pressure [Right Arm] Blood Pressure Mean [Right Arm] 02 Sat by Pulse Oximetry 96 96 95 Oxygen Delivery Method Oxygen Flow Rate (LPM) 09/10/24 16:51 09/10/24 16:52 Temperature Temperature Source Pulse Rate 96 H 104 H Pulse Rate [Right] Respiratory Rate 18 14 Blood Pressure 134/76 132/82 Blood Pressure [Right Arm] Blood Pressure Mean [Right Arm] 02 Sat by Pulse Oximetry 96 96 Oxygen Delivery Method Oxygen Flow Rate (LPM) Lab Data Lab Results 09/10/24 15:48: Sodium 138, Potassium 3.6, Chloride 106, Carbon Dioxide 18 L, A nion Gap 17.6 H, BUN 22 H, Creatinine 1.20, Estimated GFR 60, Est GFR ( Amer) 73, Glucose 224 H, Calcium 9.7, Phosphorus 3.1, Magnesium 1.8, Total Bilirubin 0.8, AST 41, ALT 24, Alkaline Phosphatase 85, Troponin I 0.20 H, Total Protein 8.3 H, Albumin 4.1, Globulin 4.2 H, Albumin/Globulin Ratio 1.0 L 09/10/24 16:07: WBC 11.8 H, RBC 4.80, Hgb 14.6, Hct 44.1, MCV 91.9, MCH 30.4, MCHC 33.1, RDW 14.4, Plt Count 244, MPV 10.6 H, Neut % (Auto) 59.4, Lymph % (Auto) 28.9, Caldwell % (Auto) 7.5, Eos % (Auto) 3.2, Baso % (Auto) 0.6, Neut # (Auto) 7.0, Lymph # (Auto) 3.4, Caldwell # (Auto) 0.9, Eos # (Auto) 0.4, Baso # (Auto) 0.1 09/10/24 16:07 09/10/24 15:48 Orders (Tests/Meds): ED MEDICATIONS Generic Name Dose Route Start Last Admin Trade Name Freq PRN Reason Stop Dose Admin Amiodarone HCl 900 mg/ 518 mls @ 33.3 mls/hr 09/10/24 16:00 09/10/24 16:03 Dextrose IV 10/10/24 15:59 33.3 mls/hr .[id number] SHAHLA Administration Discontinued Medications Generic Name Dose Route Start Last Admin Trade Name Willie PRN Reason Stop Dose Admin Aspirin 324 mg 09/10/24 15:55 09/10/24 15:59 Aspirin 81mg Chewable Tablet PO 09/10/24 15:56 324 mg ONCE ONE Administration Amiodarone HCl 150 mg/ 103 mls @ 600 mls/hr 09/10/24 16:00 09/10/24 15:55 Dextrose IV 09/10/24 16:10 600 mls/hr ONCE ONE Administration Lactated Ringer's 500 mls @ 999 mls/hr 09/10/24 16:00 09/10/24 15:59 Lactated Ringer's 1000 Ml Bag IV 09/10/24 16:30 999 mls/hr .Q31M SHAHLA Administration Magnesium Sulfate 2 gm in 50 mls @ 50 mls/hr 09/10/24 15:56 09/10/24 15:57 Magnesium Sulfate 2gm/50ml Premix IV 09/10/24 16:55 50 mls/hr ONCE ONE Administration Metoprolol Tartrate 5 mg 09/10/24 16:00 09/10/24 15:53 Metoprolol Tartrate 5mg/5ml Vial IV 09/10/24 16:01 5 mg ONCE ONE Administration ORDERS Category Date Time Status CXR --portable [XR chest portable] Stat Exams 09/10/24 16:51 Taken POCUS Point of Care (ER Only) Stat Exams 09/10/24 16:04 Taken BNP [NT Pro Brain Natriuretic Pep.] Stat Lab 09/10/24 15:48 Received CBC w/Auto Diff [Complete Blood Count Auto Diff] Stat Lab 09/10/24 16:07 Completed CMP [Comprehensive Metabolic Panel] Stat Lab 09/10/24 15:48 Results HIV Combo Stat Lab 09/10/24 15:48 Received Hepatitis C Ab Qual. W/ RFX Stat Lab 09/10/24 15:48 Received Magnesium Stat Lab 09/10/24 15:48 Results Phosphorous Stat Lab 09/10/24 15:48 Results TSH [Thyroid Stimulating Hormone] Stat Lab 09/10/24 15:48 Results Trop I [Troponin I] Stat Lab 09/10/24 15:48 Results Troponin I Q3H Lab 09/10/24 19:00 Ordered Troponin I Q3H Lab 09/10/24 22:00 Ordered ECG Data Tracing #1: I reviewed this ECG and interpreted as documented below: Wide-complex tachycardia with a ventricular rate of 173 has the appearance of V. tach versus hyperkalemia versus A-fib or a flutter with aberrancy Tracing #2: I reviewed this ECG and interpreted as documented below: Ventricular rate of 114 still wide-complex tachycardia appears to be some P waves and sinus tachycardia with interventricular conduction delay no definitive or obvious ischemic changes noted Tracing #3: I reviewed this ECG and interpreted as documented below: Ventricular rate of 108 similar to previous EKG with sinus tachycardia with interventricular conduction delay wide-complex still right axis deviation no definitive or obvious ST changes to suggest a STEMI Tracing #4: I reviewed this ECG and interpreted as documented below: Ventricular rate 97 there is sinus rhythm with frequent ventricular ectopy the conducting the beats with P waves still show significant interventricular conduction delay similar to previous EKGs still no obvious STEMI Medical Decision Narrative: 68-year-old presents today diaphoretic and being shocked multiple times from his defibrillator. Initially on my exam he was tachycardic to around 200 and was very ill-appearing. He denied any chest pain or ischemic symptoms. Differential included multiple causes of wide-complex tachycardia including ischemic heart disease, electrolyte abnormalities, thyroid dysfunction etc. Given the fact that the patient still had a perfusing pulse was not losing consciousness we loaded him with 150 of amnio followed by an amiodarone infusion we also gave a total of 10 mg of IV metoprolol after my discussion with Dr. Miranda. I was able to find his old EKG and it did seem that he had a sinus rhythm earlier this year with significant interventricular conduction delay show A-fib a flutter with aberrancy or SVT with aberrancy certainly on the differential. Chose to treat this as potential V. tach and not give adenosine. He has been shocked over and over without any change in his rhythm. He was not losing any consciousness therefore we opted to aggressively try to get his heart rate down. With the above interventions in addition to magnesium patient's heart rate eventually slowed to the low 100s and into the 90s with what appears to be a sinus rhythm at this point still with a significant interventricular conduction delay after this he looks much better clinically longer diaphoretic he still is having no ischemic chest discomfort. I did a bedside ultrasound of his heart and lungs which shows a profoundly depressed EF. Patient is adamant that he has never been diagnosed with heart failure or been told that he has a depressed ejection fraction in the past and he is followed at [facility] by Dr. Saini are attempting to get those records. However on his echo there is clear ventricular aneurysmal dilatation and he has a defibrillator in place it is incredibly unlikely that he had a normal EF prior to today's event that being said ongoing profound ischemia to his heart is still a possibility but does not seem to fit clinically therefore not taking him emergently to the [facility] after discussions with Dr. Miranda and Dr. Davis who is on-call for for interventional cardiology. Electrolytes returned unremarkable. Troponin slightly elevated but unclear as to whether or not this is an acute ischemic event or simply myocardial injury secondary to the multiple shocks. He has a [employer] device and we are getting that interrogated I spoke with Marbin Sarabia who is on-call for interrogations and we are awaiting his call back. Patient looks much better clinically at the moment no further interventions are being given patient did receive aspirin earlier in the care today as well. He will need to be admitted for further evaluation and management Device interrogation still pending and her records from [facility] still pending patient is in sinus rhythm heart rate in the 90s clinically very well and stable Dr. Miranda comfortable keeping the patient here Dr. Boss excepted to hospital medicine Procedures Miscellaneous Procedure Procedure Performed: Limited cardiac ultrasound Indication: V. tach or wide-complex tachycardia Identified structures: The heart was visualized in the parasternal long axis, parastenal short axis, apical four chamber and subxyphiod views. The IVC was visualized in the short axis and long axis at its entry into the right atrium. Findings: Profoundly depressed left ventricular ejection fraction with aneurysmal dilatation of the LV no obvious right heart strain or pericardial effusion IVC is less than 2 cm with normal respirophasic variation Impression: Profoundly depressed LVEF as above Images were to permanent archive The study was technically adequate CPT: 37937-02 This study was performed by me, and I personally interpreted all images/videos. Based on my clinical judgement, these images were adequate and did not necessitate further imaging. Limited lung ultrasound A focused ultrasound exam of the pleural spaces was performed to evaluate for pneumothorax, pulmonary edema, pleural effusion and/or consolidation. The ultrasound was performed with the following indications, as noted in the H&P: V. tach/wide-complex tachycardia Identified structures: Right and left thoracic cavities were examined. Findings: Lung sliding present throughout no B-lines pleural effusion or consolidation is noted Impression: Unremarkable limited ultrasound of bilateral lungs Images were saved to permanent archive The study was technically adequate CPT 67240-95 This study was performed by me, and I personally interpreted all images/videos. Based on my clinical judgement, these images were adequate and did not necessitate further imaging. Critical Care Critical Care Time Critical Care Time: Yes Attestation: On 09/10/24, the high probability of a clinically significant, sudden or life threatening deterioration of the following system(s) required my full and direct attention, intervention and personal management. The time I documented below is in addition to time spent performing reported procedures but includes the following listed in this critical care notation. Total Time Total Critical Care Time: 65
--- NOTE | 2024-09-10 16:36 | PC.NURSE ---
1544 150mg Amiodarone ordered. 2L NC applied, 173 HR, 39 RR, 118/83 1546 150mg IV Push given per Chip RN 1552 Amiodarone Bolus started 1558 HR 113, 97% O2 2L NC, 13RR, 122/86 1559 Magnesium IV Drip started 1600 Asprin PO given 1605 Provider at bedside doing Heart US 1613 PT Defib Interrogation. 104 HR, 95% O2 2L NC, 14RR, 125/89
--- NOTE | 2024-09-10 16:51 | XR_ITS ---
PROCEDURE INFORMATION: Exam: XR Chest Exam date and time: 09/10/2024 5:04 PM Age: 68 years old Clinical indication: Dyspnea TECHNIQUE: Imaging protocol: Radiologic exam of the chest. Views: 1 view. COMPARISON: CR XR CHEST PORTABLE 02/17/2024 2:07 PM FINDINGS: Lungs: Unremarkable. No consolidation. Pleural spaces: Unremarkable. No pleural effusion. No pneumothorax. Heart/Mediastinum: Unremarkable. No cardiomegaly. Bones/joints: Unremarkable. IMPRESSION: No acute findings.
[2024-09-10 17:21] LABS: NT Pro Brain Natriuretic Pep. 8470 pg/mL (0-125)
--- NOTE | 2024-09-10 17:28 | PC.NURSE ---
HS notified of the need for a bed to admit the pt.
[2024-09-10 17:31] LABS: Hepatitis C Ab Qual. W/ RFX NEGATIVE (Negative)
--- NOTE | 2024-09-10 17:57 | EXP.HP ---
History of Present Illness *Admission Date: 09/10/24 *Reason for visit:: Defibrillator discharges *History of present illness: Patient is a 68-year-old male with past medical history of hypertension hyperlipidemia, CAD arrhythmia status post defibrillator who presents to the hospital due to multiple discharges from the defibrillator. Patient was found to have wide-complex tachycardia. Patient at time of my evaluation denies chest pain shortness of breath nausea vomiting diarrhea constipation dysuria fevers and chills PFSH PFS Disclaimer: The information contained in this section may have been updated after the patient was seen, as this information can be updated by other users. Social History Smoking Status: Current every day smoker tobacco type: cigarettes packs per day: 1 alcohol intake: never current occupational status: retired Travel in the last 8 weeks?: None current occupational exposures/hazards: No caffeine: Yes Have you lived/traveled outside US in past 30 days?: No Contact w/someone who lives/traveled outside US past 30 days?: No Exposure to someone with infectious disease in past 14 days?: No Do you have a fever (greater than 100.4 F or 38 C)?: No Have you tested positive for COVID-19?: No Exposed to someone with COVID-19 in past 14 days?: No Do you have a sore throat?: No Do you have a cough?: No Do you have any weakness?: No Do you have any diarrhea?: No Are you experiencing any unusual bleeding?: No Do you have any muscle aches/pain?: No Do you have any abdominal pain?: No Are you experiencing loss of taste or smell?: No Other Medical History Have you received the Flu Vaccine for this season: Yes Have you received the Pneumonia Vaccine: No Review of Systems Review of Systems Review of systems:: pertinent systems reviewed and negative unless documented below Meds Home Medications and Allergies Home Medications ?Medication ?Instructions ?Recorded ?Confirmed ?Type aspirin 325 mg tablet 325 mg PO DAILY Heartburn 09/12/21 09/12/21 History atorvastatin 10 mg tablet 10 mg PO HS Cholesterol 09/12/21 09/12/21 History metformin 500 mg tablet,extended 500 mg PO BID Diabetes 09/12/21 09/17/21 History release 24 hr metoprolol tartrate 50 mg tablet 50 mg PO BID BP 09/12/21 09/12/21 History New Prescriptions to Start Prescriptions: Allergies Allergy/AdvReac Type Severity Reaction Status Date / Time NO KNOWN DRUG ALLERGIES Allergy Unknown Uncoded 01/27/17 15:38 Exam Data for Last 24 hours Vital signs and Labs for Last 24 Hours: Temp Pulse Resp BP Pulse Ox O2 Del Method O2 Flow Rate 98.9 F 90 26 H 138/76 96 Nasal Cannula 2 09/10/24 17:36 09/10/24 17:36 09/10/24 17:36 09/10/24 17:36 09/10/24 17:36 09/10/24 17:36 09/10/24 17:36 Laboratory Results - last 24 hr 09/10/24 15:48: Sodium 138, Potassium 3.6, Chloride 106, Carbon Dioxide 18 L, Anion Gap 17.6 H, BUN 22 H, Creatinine 1.20, Estimated GFR 60, Est GFR ( Amer) 73, Glucose 224 H, Calcium 9.7, Phosphorus 3.1, Magnesium 1.8, Total Bilirubin 0.8, AST 41, ALT 24, Alkaline Phosphatase 85, Troponin I 0.20 H, NT-Pro-B Natriuret Pep 8470 H, Total Protein 8.3 H, Albumin 4.1, Globulin 4.2 H, Albumin/Globulin Ratio 1.0 L, HCV Ab MARIA DOLORES w/Rflx PCR Qn Negative, HIV Ag/Ab Combo Qual Negative 09/10/24 16:07: WBC 11.8 H, RBC 4.80, Hgb 14.6, Hct 44.1, MCV 91.9, MCH 30.4, MCHC 33.1, RDW 14.4, Plt Count 244, MPV 10.6 H, Neut % (Auto) 59.4, Lymph % (Auto) 28.9, [place] % (Auto) 7.5, Eos % (Auto) 3.2, Baso % (Auto) 0.6, Neut # (Auto) 7.0, Lymph # (Auto) 3.4, [place] # (Auto) 0.9, Eos # (Auto) 0.4, Baso # (Auto) 0.1 I & O for Last 24 hours: Intake & Output 09/07/24 09/08/24 09/09/24 09/10/24 23:59 23:59 23:59 23:59 Weight 77.111 kg Constitutional Constitutional: no acute distress *Routine HEENT Exam Head: Present normocephalic Eye: Present EOMI and PERRL ENT: Present mucous membranes moist *Routine Neck Exam Neck: Present supple; Absent lymphadenopathy *Routine Respiratory Exam Respiratory: Present CTA bilaterally *Routine Cardiovascular Exam Cardiovascular: Present RRR *Routine Abdominal Exam Abdominal: Present soft and normoactive bowel sounds; Absent tenderness *Routine Rectal Exam Rectal:: deferred *Routine Genitalia Exam Genitalia:: deferred *Routine Extremities Exam Extremities: Absent cyanosis, clubbing or edema *Routine Skin Exam Skin: Present warm; Absent rash *Routine Neurological Exam Neurological: Present alert and oriented X3 Assessment and Plan *Assessment and plan (1) AICD discharge: Status: Acute Category: Medical Code(s): Z45.02 - Encounter for adjustment and management of automatic implantable cardiac defibrillator (2) Wide-complex tachycardia: Status: Acute Category: Medical Code(s): R00.0 - Tachycardia, unspecified (3) HTN (hypertension): Status: Acute Category: Medical Code(s): I10 - Essential (primary) hypertension Plan Patient is a 68-year-old male with past medical history of hypertension hyperlipidemia, CAD arrhythmia status post defibrillator who presents to the hospital due to multiple discharges from the defibrillator. Patient was found to have wide-complex tachycardia. Patient at time of my evaluation denies chest pain shortness of breath nausea vomiting diarrhea constipation dysuria fevers and chills Assessment and plan V. tach, wide-complex tachycardia Defibrillator discharges Arrhythmia Monitor in ICU Start IV amiodarone Discussed with cardiology, cardiology at [facility] recommends to admit in ICU and start IV amiodarone, patient may need cardiac cath during this admission Order echocardiogram Monitor troponin Monitor on cardiac telemetry Cardiology consulted Monitor and replace electrolytes to keep magnesium greater than 2, potassium greater than 4 Electrolyte replacement ordered Avoid QT prolonging medications Chronic medical conditions CAD Hypertension Hyperlipidemia - Resume home medications DVT prophylaxis-subcutaneous heparin
[2024-09-10 18:17] LABS: Thyroid Stimulating Hormone 2.07 uIU/mL (0.465-4.68)
--- NOTE | 2024-09-10 18:20 | PC.NURSE ---
Pt arrived via stretcher with ER staff
--- NOTE | 2024-09-10 18:55 | ECG_ITS ---
APPROVED REPORT Exam: Resting ECG HR:90 bpm ECG Measurements Heart Rate 90 AXES CO 202 P 68 QRSd 164 QRS -80 QT 409 T 92 QTc 457 Conclusion SINUS RHYTHM INTRAVENTRICULAR CONDUCTION DELAY [130+ ms QRS DURATION] ANTEROLATERAL MYOCARDIAL INFARCTION , PROBABLY RECENT [40+ ms Q WAVE IN I/aVL/V3-V6] ACUTE MD UNCONFIRMED REPORT Electronically signed by : Doanvan Coats MD 09/12/2024 07:25:42
[2024-09-10 19:25] LABS: Troponin I 3.23 ng/ml (0.00-0.034)
--- NOTE | 2024-09-10 19:30 | PC.NURSE ---
Ruben stated to receive interrogation on patient AICD and get a 12 lead EKG. Called [employer] equal opportunity representative to walk me through on getting interrogation. Interrogation received and information and EKG sent to Dr Miranda.
[2024-09-10 20:08] LABS: PTT Heparin (inpatient only) 24.7 Seconds (50-75)
--- NOTE | 2024-09-10 20:17 | PC.NURSE ---
Called EDDIE for heparin gtt consult
[2024-09-10] MEDS: HEPARIN DRIP CONSULT 1 EACH NOTAPPLIC (20:31)
[2024-09-10] MEDS: ACETAMINOPHEN 325MG TAB 650 MG PO (20:55)
--- NOTE | 2024-09-10 21:00 | PC.NURSE ---
Dr Miranda stated to d/c heparin gtt and bolus d/t plan on upgrade to device on thursday. Stated to give lovenox for VTE prophylaxis. Dr Michael notified and stated he would change the order.
[2024-09-10] MEDS: PANTOPRAZOLE 40MG TABLET 40 MG PO (21:24)
[2024-09-10] MEDS: AMIODARONE HCL 900 MG in DEXTROSE 5 % IN WATER 500 ML 16.7 MG IV (22:13)
[2024-09-10 23:08] LABS: Troponin I 7.09 ng/ml (0.00-0.034)
[2024-09-10] MEDS: NICOTINE 21MG/24HR PATCH 21 MG TD (23:16)
[2024-09-11] VITALS (31 sets, daily range): BP systolic 118–146; BP diastolic 55–94; PULSE 66–94; RESP 12–34; TEMP 36.5–36.9; O2SAT 82–99; BMI 20.2
--- NOTE | 2024-09-11 00:22 | PC.NURSE ---
Pt called out and stated he did not feel right. Pt stated after the benadryl he felt heavy in his chest. Pt states the feeling has now gone away. Denies pain or other issues. VSS.
[2024-09-11 06:03] LABS: Hematocrit 42.4 % (42.0-52.0); Hemoglobin 13.8 g/dL (14.1-18.0); Immature Granulocytes % 0.2 %; Mean Corpuscular HGB Conc 32.5 g/dL (31.8-35.4); Mean Corpuscular Hemoglobin 29.7 pg (27.0-31.2); Mean Corpuscular Volume 91.2 fl (80-94); Nucleated Red Blood Cells % 0 %; Platelet Count 183 K/mm3 (142-424); Red Blood Count 4.65 M/mm3 (4.60-6.20); Red Cell Distribution Width-SD 48.7 fL; White Blood Count 9.3 K/mm3 (4.8-10.8)
[2024-09-11 06:04] LABS: Albumin Level 3.4 g/dl (3.5-5.0); Chloride 109 mmol/L (98-107); Potassium 3.7 mmoL/L (3.5-5.1); Sodium 136 mmol/L (136-145)
[2024-09-11 06:07] LABS: Alanine Aminotransferase 36 U/L (12-78); Albumin/Globulin Ratio 1.0 (1.1-1.8); Alkaline Phosphatase 85 U/L (38-126); Anion Gap 9.7 mEq/L (5-15); Aspartate Amino Transferase 115 U/L (17-59); Bilirubin,Total 1.0 mg/dl (0.2-1.3); Blood Urea Nitrogen 21 mg/dl (9-20); Carbon Dioxide 21 mmol/L (22.0-30.0); Creatinine Clearance Estimated 74 mL/min (50-200); Creatinine,Serum 0.90 mg/dl (0.66-1.25); Estimated Glomerular Filt Rate 84 ml/min (>60); GFR (African American) 102 ML/MIN (>60); Globulin 3.5 g/dL (1.3-3.2); Total Protein,Serum 6.9 g/dl (6.3-8.2)
[2024-09-11 06:08] LABS: Calcium 8.9 mg/dl (8.4-10.2); Glucose 125 mg/dl (74-100)
[2024-09-11 06:23] LABS: Troponin I 9.15 ng/ml (0.00-0.034)
--- NOTE | 2024-09-11 06:32 | ECG_ITS ---
APPROVED REPORT Exam: Resting ECG HR:75 bpm ECG Measurements Heart Rate 75 AXES FL 203 P 78 QRSd 161 QRS -85 QT 457 T 90 QTc 487 Conclusion SINUS RHYTHM POSSIBLE LEFT ATRIAL ENLARGEMENT [-0.1mV P-WAVE IN V1/V2] INTRAVENTRICULAR CONDUCTION DELAY [130+ ms QRS DURATION] ANTEROLATERAL MYOCARDIAL INFARCTION , PROBABLY RECENT [40+ ms Q WAVE IN I/aVL/V3-V6] ACUTE [place] UNCONFIRMED REPORT Electronically signed by : Donavan Coats MD 09/14/2024 08:33:49
--- NOTE | 2024-09-11 06:49 | PC.NURSE ---
Pt had difficulty sleeping this shift. Pt received IV Benadryl with little to no response. Pt has reported to multiple members of staff that he drinks alcohol at bedtime to help him sleep. He has given many different answers as to how much he drinks such as, a truckload , a couple of shots , and maybe a beer or two. Out of precaution, this RN performed a one-time CIWA scale on pt, CIWA score is [address] Michael also made aware of the patient's alcohol use for bedtime at home.
--- NOTE | 2024-09-11 09:03 | HMH.PHAINT1 ---
Pharmacy Intervention Comments: MEDICATION RECONCILIATION COMPLETE USING EXTERNAL PHARMACY FILL HISTORY.
[2024-09-11] MEDS: METOPROLOL SUCCINATE XL 25MG TABLET 12.5 MG PO ×2 (09:09→20:57)
[2024-09-11] MEDS: ASPIRIN EC 81MG TABLET 81 MG PO (09:09)
--- NOTE | 2024-09-11 12:07 | PC.NURSE ---
Conversation during patient reassessment, patient was asked to get up to the chair for meals. pt stated that he can't eat . when asked if there was anything he thought he could eat, pt stated that dietary had already helped pick out his meal for lunch that he wanted to eat. when trying to get clarification as to what he meant by can't eat pt became verbally aggressive with staff and snapped saying he didn't want to eat! . shortly after pt verbal outburst he was noted to be polite and pleasant with staff again. this behavior had also been reported by SRNA this shift as well. stating several interactions with patient have been noted to have aggressive vocalizations, agitation and then pt mood/attitude changes back to being cooperative and pleasant. During reassessment pt was also noted to ask the same set of questions several times within a 5-10 minute time span. Pt had previously been told that his sister had called and checked on his status and said she would be in to see him once she got up and moving around well . pt used call das to call out and ask if his sister was coming to see him today, and asked if she was able to come in and see him in here . before conversation credit union field examiner light was completed, pt again asked if his sister was coming to see him today and if she would be able to come in here and see him . During assessment in room (following call das conversation) patient again asked the same questions/conversation 2 more times. safety device in place at this time. will monitor pt orientation and redirect as needed.
[2024-09-11] MEDS: AMIODARONE HCL 900 MG in DEXTROSE 5 % IN WATER 500 ML 16.7 MG IV (14:51)
--- NOTE | 2024-09-11 15:31 | PC.NURSE ---
Pt has appeared to rest in room, but has not slept this shift. pt has been up to the chair twice this shift. both times were for approx 1.5 hours total. pt is a/o x 4 but does appear to have some slight issues with short term memory/details. pt sister at bedside at this time and was updated on tentative plans of cardiology consult in am and possible replacement of pacer/defib. pt is noted to be steady on his feet and does not require any assistance with ambulation (standby assist). nad noted.
--- NOTE | 2024-09-11 17:18 | P.PN_ITS ---
Subjective *Date: 09/11/24 *Time: 17:18 Interval history: Patient is seen and evaluated at the bedside, patient denies chest pain shortness of breath nausea vomiting today. No new complaints. Exam Data for Last 24 hours Vital signs and Labs for Last 24 Hours: Temp Pulse Resp BP Pulse Ox O2 Del Method O2 Flow Rate 97.9 F 82 21 146/89 H 95 Room Air 2 09/11/24 16:02 09/11/24 17:00 09/11/24 17:00 09/11/24 17:00 09/11/24 17:00 09/11/24 17:03 09/10/24 17:36 Laboratory Results - last 24 hr 09/10/24 15:48: NT-Pro-B Natriuret Pep 8470 H, TSH 2.07, HCV Ab MARIA DOLORES w/Rflx PCR Qn Negative, HIV Ag/Ab Combo Qual Negative 09/10/24 18:44: Lactate 1.6, Troponin I 3.23 H 09/10/24 19:36: APTT 24.7 L 09/10/24 22:04: Troponin I 7.09 H 09/11/24 05:38: WBC 9.3, RBC 4.65, Hgb 13.8 L, Hct 42.4, MCV 91.2, MCH 29.7, MCHC 32.5, RDW 14.6, Plt Count 183, MPV 10.7 H, Neut % (Auto) 63.0, Lymph % (Au to) 25.6, [place] % (Auto) 7.8, Eos % (Auto) 2.8, Baso % (Auto) 0.6, Neut # (Auto) 5.8, Lymph # (Auto) 2.4, [place] # (Auto) 0.7, Eos # (Auto) 0.3, Baso # (Auto) 0.1, Sodium 136, Potassium 3.7, Chloride 109 H, Carbon Dioxide 21 L, Anion Gap 9.7, BUN 21 H, Creatinine 0.90 D, Estimated Creat Clear 74, Estimated GFR 84, Est GFR ( Amer) 102 D, Glucose 125 H D, Calcium 8.9, Total Bilirubin 1.0, AST 115 H D, ALT 36 D, Alkaline Phosphatase 85, Troponin I 9.15 H, Total Protein 6.9, Albumin 3.4 L D, Globulin 3.5 H, Albumin/Globulin Ratio 1.0 L I & O for Last 24 hours: Intake & Output 09/08/24 09/09/24 09/10/24 09/11/24 23:59 23:59 23:59 23:59 Intake Total 500 / 500 732 / 732 Output Total 350 / 350 575 / 575 Balance 150 / 150 157 / 157 Weight 73.981 kg 73.981 kg Constitutional Constitutional: no acute distress *Routine HEENT Exam Head: Present normocephalic Eye: Present EOMI and PERRL ENT: Present mucous membranes moist *Routine Neck Exam Neck: Present supple; Absent lymphadenopathy *Routine Respiratory Exam Respiratory: Present CTA bilaterally *Routine Cardiovascular Exam Cardiovascular: Present RRR *Routine Abdominal Exam Abdominal: Present soft and normoactive bowel sounds; Absent tenderness *Routine Extremities Exam Extremities: Absent cyanosis, clubbing or edema *Routine Skin Exam Skin: Present warm; Absent rash *Routine Neurological Exam Neurological: Present alert and oriented X3 Assessment and Plan *Assessment and plan (1) AICD discharge: Status: Acute Category: Medical Code(s): Z45.02 - Encounter for adjustment and management of automatic implantable cardiac defibrillator (2) Wide-complex tachycardia: Status: Acute Category: Medical Code(s): R00.0 - Tachycardia, unspecified (3) HTN (hypertension): Status: Acute Category: Medical Code(s): I10 - Essential (primary) hypertension Plan Patient is a 68-year-old male with past medical history of hypertension hyperlipidemia, CAD arrhythmia status post defibrillator who presents to the hospital due to multiple discharges from the defibrillator. Patient was found to have wide-complex tachycardia. Patient at time of my evaluation denies chest pain shortness of breath nausea vomiting diarrhea constipation dysuria fevers and chills Assessment and plan V. tach, wide-complex tachycardia Defibrillator discharges Arrhythmia Monitor in ICU Started on IV amiodarone Discussed with cardiology, cardiology recommends to admit in ICU and start IV amiodarone, patient may need cardiac cath during this admission may need a new defibrillator Order echocardiogram Monitor troponin Monitor on cardiac telemetry Cardiology consulted Monitor and replace electrolytes to keep magnesium greater than 2, potassium greater than 4 Electrolyte replacement ordered Avoid QT prolonging medications Chronic medical conditions CAD Hypertension Hyperlipidemia - Resume home medications DVT prophylaxis-subcutaneous heparin dc when ok with cardiology
[2024-09-11] MEDS: diazePAM 5MG TABLET 5 MG PO (20:56)
[2024-09-11] MEDS: ATORVASTATIN 40MG TABLET 80 MG PO (20:57)
[2024-09-11] MEDS: PANTOPRAZOLE 40MG TABLET 40 MG PO (20:58)
--- OUTSIDE RECORDS SUMMARY | 2024-09-11 21:25 | XMS_ITS | Encounter Summary ---
Author Organization Healthcare Address [address] [place] [address] Care Team Providers Care Composition Roofer Name Role Phone Socorro Christian DO Primary Care Provider [phone] Encounter Details Date Type Department Care Team ([facility] st Contact Info) Description 01/21/2024 Orders Only External Location [address] [place] [address] Provider, External Social History Tobacco Use Types [...] on filedocumented in this encounter Care Teams Composition Roofer Relationship Specialty Start Date End Date Socorro Christian DO [address] [place] [address] PCP - General 06/22/20 documented as of this encounter
--- OUTSIDE RECORDS SUMMARY | 2024-09-11 21:25 | XMS_ITS | Encounter Summary ---
Author Organization Healthcare Address [address] [place] [address] Care Team Providers Care Referral Rn Name Role Phone Socorro Christian DO Primary Care Provider Reason for Referral * Consultation (Routine) - Closed Specialty Diagnoses / Procedures Referred By Nora t Referred To Contact Pulmonary Disease / Pulmonology Diagnoses Ground glass opacity present on imaging of lung Socorro Christian, DO [address] [place] [address] Phone: tel: fax: [facility] [address] [place] [address] Phone: tel: fax: Referral ID Status Reason Start Date Expiration Date V isits Requested Visits Authorized [id number] Closed Specialty Services Required 01/26/2024 07/27/2025 1 1 Encounter Details Date Type Department Care Team (Late st Contact Info) Description 01/26/2024 Community Orders Community Practice [address] [place] [address] Socorro Christian, DO [address] [place] [address] Ground glass opacity present on imaging of [...] Primary documented in this encounter Care Teams Referral Rn Relationship Specialty Start Date End Date Socorro Christian DO [address] [place] [address] PCP - General 06/22/20 documented as of this encounter
--- OUTSIDE RECORDS SUMMARY | 2024-09-11 21:25 | XMS_ITS | Encounter Summary ---
Author Organization Healthcare Address [address] [place] [address] Care Team Providers Care Chucking Machine Set Up Operator Tool Name Role Phone Socorro Christian DO Primary Care Provider [phone] Encounter Details Date Type Department Care Team ([facility] st Contact Info) Description 05/20/2022 Orders Only External Location [address] [place] [address] Provider, External Social History Tobacco Use Types [...] on filedocumented in this encounter Care Teams Chucking Machine Set Up Operator Tool Relationship Specialty Start Date End Date Socorro Christian DO [address] [place] [address] PCP - General 06/22/20 documented as of this encounter
--- OUTSIDE RECORDS SUMMARY | 2024-09-11 21:25 | XMS_ITS | Clinical Summary ---
Author Organization Healthcare Address [address] [place] [address] Care Team Providers Care Dismantler Name Role Phone Socorro Christian DO Primary Care Provider [phone] Allergies No known active allergies Medications metFORMIN [...] Panlobular emphysema 07/20/2020 Cardiomyopathy 07/19/2020 Pacemaker 07/18/2020 AK (myocardial infarction) 07/18/2020 Good tolerance for activity [...] 10/01/2000 UKY-Zoster Vaccines (1 of 2) 10/01/2005 [id number] Vaccine ( season) 2023 01/17/2021, 07/19/2020, 06/21/2020 [...] complete this topic Insurance MEDICARE Care Teams Dismantler Relationship Specialty Start Date End Date Socorro Christian DO [address] [place] [address] PCP - General 06/22/20
[2024-09-12] VITALS (29 sets, daily range): BP systolic 117–144; BP diastolic 62–90; PULSE 73–97; RESP 17–33; TEMP 36.6–36.9; O2SAT 92–97; BMI 20.5
--- NOTE | 2024-09-12 | IR_ITS ---
APPROVED REPORT Patient Location: Inpatient Rn L And D: Geo Madera RT (R) PROCEDURES 1. Pocket Revision 2. Placement of left ventricular sensing pacing lead via the coronary sinus. 3. Placement of right atrial sensing pacing lead. 4. Permanent cardiac resynchronization therapy with ICD implantation/biventricular pacemaker. INDICATION Systolic Congestive Heart Failure, ejection <35%, Wide QRS >160ms, [place] Heart Assoication Class 3 Congestive Heart Failure, Ventricular Tachycardia, Ventricular Fibrilation arrest Informed consent was obtained prior to the procedure. COMPLICATIONS None Estimated Blood Loss: Less than 10 mls TECHNIQUE 1% lidocaine with epinephrine used to anesthetize the left anterior aspect of the chest. Scalpel was used to make the initial cutaneous incision and to dissect down into the fascia. The generator was removed from the existing pocket. Digital manipulation was required along with intermittent usage of scalpel in order to revise the pocket. The leads were removed from the old generator. The patient was then placed in Trendelenburg position and the subclavian vein was accessed 2 times via the Selinger technique. A 9.5 Romanian sheath was placed under fluoroscopic guidance into the subclavian vein. The dilator was removed from the sheath. Under fluoroscopic guidance the coronary sinus was cannulated and confirmed with an injection of contrast. An 0.014 wire was then placed distally in the inferior posterior segment of the left ventricle via the coronary sinus and the left ventricular lead was advanced. After achieving excellent thresholds and interrogation numbers the sheath was then peeled away and the lead was then secured into place using silk suture. An additional 6 Romanian fresh sheath and dilator was placed over the existing wire. Using fluoroscopic guidance, the atrial lead was the placed into the right atrial appendage and screwed and secured in place. Electrical interrogation demonstrated acceptable thresholds and voltage number. The atrial lead was then secured into place using 3-0 silk. Ancef was used to flush the pocket and the 3 leads were attached to the STAMPING MILL TENDER-D generator. The generator was then secured into place by heavy silk suture. Monocryl was used to close the subcutaneous layers while stefany were used to close the subcutaneous layers while stefany were used to close the cutaneous layer. A pressure dressing was placed and the patient was transferred to the postop holding area in stable condition for postoperative care. INTERROGATION Explanted Generator Type: single lead ICD Implanted Generator Model number: Bita HF, [id number] Implanted Generator Serial number: [id number] Atrial lead model number: Eugenio STS, 52cm, 2088TC Atrial lead serial number: [id number] P-wave: >5mV Impedance: 649 ohms Threshold: 1.5V@0.5ms Right Ventricular lead model number: Handley 7122/65Q Left Ventricular lead model number: Quartet 86cm, 1458Q Left Ventricular lead serial number: [id number] Threshold: 1.0V@0.5ms (1-2) LV only P4-Coil Pacing Parameters: Mode: DDDR Base/Max Track:60 ppm / 130 ppm No diaphragmatic stimulation at 10 volts. IMPRESSION 1. Successful Pocket Revision 2. Successful Placement of left ventricular sensing pacing lead via the coronary sinus. 3. Successful Placement of right atrial sensing pacing lead. 4. Successful Permanent cardiac resynchronization therapy with ICD implantation/biventricular pacemaker. PLAN 1. Post op wound care Electronically signed by : Herbert Miranda MD 09/14/2024 07:56:22
[2024-09-12 06:12] LABS: Hematocrit 41.7 % (42.0-52.0); Hemoglobin 13.9 g/dL (14.1-18.0); Immature Granulocytes % 0.4 %; Mean Corpuscular HGB Conc 33.3 g/dL (31.8-35.4); Mean Corpuscular Hemoglobin 30.0 pg (27.0-31.2); Mean Corpuscular Volume 89.9 fl (80-94); Nucleated Red Blood Cells % 0 %; Platelet Count 116 K/mm3 (142-424); Red Blood Count 4.64 M/mm3 (4.60-6.20); Red Cell Distribution Width-SD 47.4 fL; White Blood Count 11.4 K/mm3 (4.8-10.8)
[2024-09-12 06:22] LABS: Albumin Level 3.4 g/dl (3.5-5.0); Chloride 106 mmol/L (98-107); Potassium 4.5 mmoL/L (3.5-5.1); Sodium 133 mmol/L (136-145)
[2024-09-12 06:24] LABS: Blood Urea Nitrogen 15 mg/dl (9-20); Creatinine Clearance Estimated 75 mL/min (50-200); Creatinine,Serum 0.90 mg/dl (0.66-1.25); Estimated Glomerular Filt Rate 84 ml/min (>60); GFR (African American) 102 ML/MIN (>60)
[2024-09-12 06:25] LABS: Alanine Aminotransferase 27 U/L (12-78); Albumin/Globulin Ratio 0.9 (1.1-1.8); Alkaline Phosphatase 71 U/L (38-126); Anion Gap 10.5 mEq/L (5-15); Aspartate Amino Transferase 67 U/L (17-59); Bilirubin,Total 1.9 mg/dl (0.2-1.3); Calcium 9.1 mg/dl (8.4-10.2); Carbon Dioxide 21 mmol/L (22.0-30.0); Globulin 3.7 g/dL (1.3-3.2); Glucose 142 mg/dl (74-100); Total Protein,Serum 7.1 g/dl (6.3-8.2)
--- NOTE | 2024-09-12 06:28 | PC.NURSE ---
No acute changes this shift. VSS. Pt denies CP/SOA. Remains on amio gtt per MAR
[2024-09-12 06:57] LABS: Magnesium 1.5 mg/dl (1.6-2.3)
--- NOTE | 2024-09-12 07:18 | PC.NURSE ---
echo lab at bedside.
[2024-09-12] MEDS: MAGNESIUM SULFATE IN WATER 2 GM/50 ML PIGGYBACK IV ×2 (07:42→08:33)
[2024-09-12] MEDS: METOPROLOL SUCCINATE XL 25MG TABLET 12.5 MG PO ×2 (08:34→20:45)
[2024-09-12] MEDS: DEFINITY US ECHO CONTRAST 2ML INJ 2 MG IV (09:26)
--- NOTE | 2024-09-12 10:23 | PC.NURSE ---
RAHUL Kimball at bedside. verbal order to obtain EKG. EKG performed and given to Cody Power to read.
--- NOTE | 2024-09-12 10:23 | ECG_ITS ---
APPROVED REPORT Exam: Resting ECG HR:82 bpm ECG Measurements Heart Rate 82 AXES FL 201 P 80 QRSd 165 QRS -81 QT 465 T 93 QTc 503 Conclusion SINUS RHYTHM INTRAVENTRICULAR CONDUCTION DELAY [130+ ms QRS DURATION] ANTEROLATERAL MYOCARDIAL INFARCTION , PROBABLY RECENT [40+ ms Q WAVE IN I/aVL/V3-V6] LBBB, scarbossa negative UNCONFIRMED REPORT Electronically signed by : AMYITO ISSA, 09/13/2024 04:20:09
--- NOTE | 2024-09-12 11:53 | PC.NURSE ---
Blas Kelley, KADE at bedside speaking with patient regarding procedure and sedation.
--- NOTE | 2024-09-12 12:07 | EXP.ANES.CKL ---
[facility] Disclaimer: The information contained in this section may have been updated after the patient was seen, as this information can be updated by other users. Medical History (Updated 09/10/24 @ 19:54 by Tala Nguyen RN) Warthin's tumor Presence of combination internal cardiac defibrillator (ICD) and pacemaker Warthin's tumor Heart attack HLD (hyperlipidemia) HTN (hypertension) Diabetes Family History (Updated 09/10/24 @ 19:54 by Tala Nguyen RN) Other Cancer Social History (Updated 09/11/24 @ 12:52 by Tala Nguyen RN) Smoking Status: Current every day smoker tobacco type: cigarettes packs per day: 1 alcohol intake: current substance use type: denies use current occupational status: retired Travel in the last 8 weeks?: None current occupational exposures/hazards: No caffeine: Yes [facility] Anesthesia Checklist Patient Identification Patient Identification: Arm Band Structural Data Admitted From: Home Planned Operative Procedure/s: Biventricular AICD Upgrade Consent for Planned Operative Procedure(s) Verified: Yes Verified Documents: Surgical Consent and History and Physical NPO Status Verified Time NPO: 00:00 Additional verifications Anesthesia Reactions: No Airway Assessment Mallampati Score:: Class II C-Spine Mobility Assessed: Yes TMJ Mobility Assessed: Yes Dentition: Poor Dentition Neurological Assessment Level of Consciousness: Awake, Alert and Appropriate Anesthesia Plan Anesthesia Risk discussed: Yes Anesthesia Plan: Verified ASA Class: IV Anesthesia Type: MAC
--- NOTE | 2024-09-12 12:19 | PC.NURSE ---
pt's sister at bedside and updated on plan of care.
--- NOTE | 2024-09-12 13:12 | EXP.CARD.CON ---
History of Present Illness History of Present Illness Consult date: 09/12/24 Consult reason: chest pain Chief complaint: ICD shock History of present illness: 68-year-old white male not seen prior at this facility but with a history of heart failure reduced ejection fraction status post single-lead ICD placed in hazard in approximately 2018. Patient states he has never had stents, denies known heart valvular disease or arrhythmia. States he typically has good functional status, NYHA = 1?2 equivalent. Reports he was at home watching TV when he felt a sudden discharge of his ICD. This happened recurrently and he presented for evaluation. Download indicates patient was shocked 60 times for wide-complex [id number] with aberrancy versus slow VT. He was started on IV amiodarone and has been stable since that time with a few short runs of nonsustained V. tach. Troponin initially 0.20 and has trended up subsequently to 9.15. proBNP 8470. 2D echo here indicates severely dilated left ventricle with EF approximately 10%. Patient is asymptomatic at this time and is agreeable to device upgrade to include BiV ICD followed by subsequent left heart cath to evaluate for underlying ischemia. His QRS at baseline is greater than 160. [facility] Disclaimer: The information contained in this section may have been updated after the patient was seen, as this information can be updated by other users. Medical History Warthin's tumor Presence of combination internal cardiac defibrillator (ICD) and pacemaker Warthin's tumor Heart attack HLD (hyperlipidemia) HTN (hypertension) Diabetes Family History Other Cancer Social History Smoking Status: Current every day smoker tobacco type: cigarettes packs per day: 1 alcohol intake: current substance use type: denies use current occupational status: retired Travel in the last 8 weeks?: None current occupational exposures/hazards: No caffeine: Yes Have you lived/traveled outside [place] in past 30 days?: No Contact w/someone who lives/traveled outside US past 30 days?: No Exposure to someone with infectious disease in past 14 days?: No Do you have a fever (greater than 100.4 F or 38 C)?: No Have you tested positive for COVID-19?: No Exposed to someone with COVID-19 in past 14 days?: No Do you have a sore throat?: No Do you have a cough?: No Do you have any weakness?: No Are you experiencing any nausea/vomitting?: No Do you have any diarrhea?: No Are you experiencing any unusual bleeding?: No Do you have any muscle aches/pain?: No Do you have any abdominal pain?: No Are you experiencing loss of taste or smell?: No Review of Systems Constitutional Constitutional: Denies fatigue and Reports weakness Eyes Eyes: Denies loss of vision ENT Ears, Nose, Mouth, and Throat: Denies hearing loss and Denies vertigo *Cardiovascular Cardiovascular: Reports chest pain, Denies dyspnea and Denies syncope *Respiratory Respiratory: Denies cough and Denies dyspnea *Gastrointestinal Gastrointestinal: Denies change in stool character, Denies nausea and Denies vomiting *Genitourinary Genitourinary: Denies difficulty urinating *Musculoskeletal Musculoskeletal: Denies muscle weakness Integumentary/Breasts Skin/Breast: Denies changing lesions *Neurologic Neurologic: Denies loss of vision, Denies syncope, Denies vertigo and Reports weakness Endocrine Endocrine: Denies fatigue Exam Data for Last 24 hours Vital signs and Labs for Last 24 Hours: Temp Pulse Resp BP Pulse Ox O2 Del Method O2 Flow Rate 97.9 F 86 18 130/77 95 Room Air 2 09/12/24 08:43 09/12/24 12:57 09/12/24 12:57 09/12/24 12:57 09/12/24 12:57 09/12/24 12:57 09/10/24 17:36 Laboratory Results - last 24 hr 09/12/24 05:25: WBC 11.4 H, RBC 4.64, Hgb 13.9 L, Hct 41.7 L, MCV 89.9, MCH 30.0, MCHC 33.3, RDW 14.5, Plt Count 116 L D, MPV 12.0 H, Neut % (Auto) 78.8, Lymph % (Auto) 12.5, [place] % (Auto) 6.9, Eos % (Auto) 1.0, Baso % (Auto) 0.4, Neut # (Auto) 9.0 H, Lymph # (Auto) 1.4, [place] # (Auto) 0.8, Eos # (Auto) 0.1, Baso # (Auto) 0.0, Sodium 133 L, Potassium 4.5 D, Chloride 106, Carbon Dioxide 21 L, Anion Gap 10.5, BUN 15 D, Creatinine 0.90, Estimated Creat Clear 75, Estimated GFR 84, Est GFR ( Amer) 102, Glucose 142 H, Calcium 9.1, Magnesium 1.5 L D, Total Bilirubin 1.9 H, AST 67 H D, ALT 27, Alkaline Phosphatase 71, Total Protein 7.1, Albumin 3.4 L, Globulin 3.7 H, Albumin/Globulin Ratio 0.9 L I & O for Last 24 hours: Intake & Output 09/09/24 09/10/24 09/11/24 09/12/24 23:59 23:59 23:59 23:59 Intake Total 500 / 500 1008 / 1008 181 / 181 Output Total 350 / 350 1125 / 1125 200 / 200 Balance 150 / 150 -117 / -117 -19 / -19 Weight 163 lb 1.6 oz 163 lb 1.603 oz 165 lb Constitutional Constitutional: no acute distress and cooperative *Routine HEENT Exam Eye: Present PERRL *Routine Respiratory Exam Respiratory: Present CTA bilaterally; Absent accessory muscle use, wheezes or crackles *Routine Cardiovascular Exam Cardiovascular: Present RRR, Normal S1 and Normal S2; Absent murmur, gallop or rubs *Routine Abdominal Exam Abdominal: Present soft; Absent tenderness *Routine Extremities Exam Extremities: Present pulses intact; Absent cyanosis or edema *Routine Skin Exam Skin: Present intact; Absent erythema or wounds *Routine Neurological Exam Neurological: Present alert and oriented X3 Routine Psychiatric Exam Psychiatric: Present cooperative Meds Home Medications and Allergies Home Medications ?Medication ?Instructions ?Recorded ?Confirmed ?Type aspirin 325 mg tablet 325 mg PO DAILY 09/12/21 09/11/24 History atorvastatin 80 mg tablet 80 mg PO HS 09/10/24 09/11/24 History metoprolol tartrate 25 mg tablet 12.5 mg PO BID 09/10/24 09/11/24 History metformin 500 mg tablet 500 mg PO BIDWMEAL 09/11/24 09/11/24 History New Prescriptions to Start Prescriptions: Allergies Allergy/AdvReac Type Severity Reaction Status Date / Time No Known Allergies Allergy Verified 08/03/25 05:02 Assessment and Plan *Assessment and plan (1) AICD discharge: Status: Acute Category: Medical Code(s): Z45.02 - Encounter for adjustment and management of automatic implantable cardiac defibrillator (2) Heart failure with reduced ejection fraction (HFrEF): Status: Acute Category: Medical Code(s): I50.20 - Unspecified systolic (congestive) heart failure (3) Wide-complex tachycardia: Status: Acute Category: Medical Code(s): R00.0 - Tachycardia, unspecified (4) NSTEMI (non-ST elevated myocardial infarction): Status: Acute Category: Medical Code(s): I21.4 - Non-ST elevation (NSTEMI) myocardial infarction Plan ICD Discharge - 60x shocks for HR >170 - either a-fib/flutter with abberancy or slow VT - stable now on IV Amio - pt agreeable to placement of atrial lead and Bi-V wires. Atrial lead will monitor for A-fib and reduce any subsequent inappropriate shocks. The additional V lead is indicated for severe LV dysfunction and QRS greater than 160. - Patient agreeable to left heart cath later this admission to evaluate for underlying ischemia. States he had an FL previously but never had stents placed or bypass surgery. Wide Complex tachycardia - A-fib first flutter with abberancy or VT, cannot tell based on readings or device download - stable now on Metoprolol and Amio HFrEF - Baseline details unclear, patient is poor historian, had ICD lead placed 2018 so presumably weak since that time but also possible he does have arrhythmia, will attempt to gather records - Echo here shows severely dilated LV with spherical remodeling and EF 10% with severe biatrial dilation - NYHA = 1?2 baseline functional status - proBNP here is 8470, no evidence of volume overload on CXR or physical exam - add Entresto and Farxiga CAD - presumed based on severe LV dysfunction and remodeling - pt reports prior FL but details unknown, no prior stents/bypass - CCS = 0, but here with recurrent VT so will check LH after device (in the event he needs DAPT) - continue BB, statin *CV stable now on IV Amiodarone. Device upgrade today. LHC tomorrow or Thursday.
--- NOTE | 2024-09-12 14:06 | PC.NURSE ---
called bambi Craig's sister and updated her that patient will be going to the cathlab within the next hour.
--- NOTE | 2024-09-12 14:10 | EXP.ACUTE.PN ---
Subjective *Date: 09/12/24 *Time: 17:15 Interval history: Patient feels well this morning. Slept poorly last night. Has not gotten much sleep since being in the hospital. Denies any shocks overnight. Has done better on telemetry the past 24 hours. Stable on room air. Afebrile Medical Exam Vital signs and Labs for Last 24 Hours: Vital Signs Temp Pulse Pulse Resp BP Pulse Ox O2 Del Method 09/12/24 13:58 84 18 128/79 96 Room Air 09/12/24 12:57 Room Air 09/12/24 12:57 86 18 130/77 95 Room Air 09/12/24 12:00 88 09/12/24 11:55 95 Room Air 09/12/24 11:55 91 H 18 131/81 95 Room Air 09/12/24 11:00 Room Air 09/12/24 11:00 80 18 131/81 97 Room Air 09/12/24 10:00 79 18 128/74 94 L Room Air 09/12/24 08:43 Room Air 09/12/24 08:43 97.9 F 90 18 130/68 95 Room Air 09/12/24 07:41 95 Room Air 09/12/24 07:41 97.9 F 89 18 127/77 95 Room Air 09/12/24 07:00 87 18 127/77 95 Room Air 09/12/24 06:31 Room Air 09/12/24 06:00 87 18 120/80 95 Room Air 09/12/24 05:00 92 H 20 125/72 95 Room Air 09/12/24 05:00 Room Air 09/12/24 04:00 98.4 F 83 17 118/62 96 Room Air 09/12/24 04:00 87 09/12/24 04:00 96 Room Air 09/12/24 03:00 85 19 127/78 94 L Room Air 09/12/24 03:00 Room Air 09/12/24 02:00 92 H 33 H 125/84 93 L Room Air 09/12/24 01:00 Room Air 09/12/24 01:00 93 H 17 123/73 95 Room Air 09/12/24 00:02 98.0 F 93 H 21 136/75 95 09/12/24 00:00 91 H 09/12/24 00:00 95 Room Air 09/11/24 23:00 85 20 134/79 96 Room Air 09/11/24 23:00 Room Air 09/11/24 22:00 87 20 131/81 95 Room Air 09/11/24 21:00 94 H 19 140/82 95 Room Air 09/11/24 21:00 Room Air 09/11/24 20:00 98.5 F 81 18 137/91 H 96 09/11/24 20:00 95 Room Air 09/11/24 20:00 92 H 09/11/24 19:01 84 19 138/94 H 95 Room Air 09/11/24 18:38 Room Air 09/11/24 18:00 80 24 134/82 95 Room Air 09/11/24 17:03 Room Air 09/11/24 17:00 82 21 146/89 H 95 Room Air 09/11/24 16:02 97.9 F 86 24 139/83 82 L Room Air 09/11/24 16:00 80 09/11/24 15:29 90 97 Room Air 09/11/24 15:20 Room Air 09/11/24 15:00 89 25 H 140/82 98 Room Air Intake and Output 09/11/24 09/12/24 09/12/24 23:59 07:59 15:59 Intake Total 276 / 1008 181 / 181 0 / 181 Output Total 550 / 1125 200 / 200 0 / 200 Balance -274 / -117 -19 / -19 0 / -19 Intake: Intake, Oral Amount 222 / 552 0 / 0 Intake, Total IV Amount 54 / 456 181 / 181 Amiodarone HCl 900 mg In 54 456 181 / 181 Dextrose 5 % in Water 500 ml @ 16.7 mls/hr IV .Q25H [facility] Rx#: [id number] Output: Output, Urine Amount 550 / 1125 200 / 200 0 / 200 Other: Number of Unmeasured Voids 1 Number of Bowel Movements 1 Weight 74.843 kg Patient Weight 09/12/24 23:59 Weight 74.843 kg Laboratory Results - last 24 hr 09/12/24 05:25: WBC 11.4 H, RBC 4.64, Hgb 13.9 L, Hct 41.7 L, MCV 89.9, MCH 30.0, MCHC 33.3, RDW 14.5, Plt Count 116 L D, MPV 12.0 H, Neut % (Auto) 78.8, Lymph % (Auto) 12.5, [place] % (Auto) 6.9, Eos % (Auto) 1.0, Baso % (Auto) 0.4, Neut # (Auto) 9.0 H, Lymph # (Auto) 1.4, [place] # (Auto) 0.8, Eos # (Auto) 0.1, Baso # (Auto) 0.0, Sodium 133 L, Potassium 4.5 D, Chloride 106, Carbon Dioxide 21 L, Anion Gap 10.5, BUN 15 D, Creatinine 0.90, Estimated Creat Clear 75, Estimated GFR 84, Est GFR ( Amer) 102, Glucose 142 H, Calcium 9.1, Magnesium 1.5 L D, Total Bilirubin 1.9 H, AST 67 H D, ALT 27, Alkaline Phosphatase 71, Total Protein 7.1, Albumin 3.4 L, Globulin 3.7 H, Albumin/Globulin Ratio 0.9 L I & O for Labs for Last 24 Hours: Intake & Output 09/09/24 09/10/24 09/11/24 09/12/24 23:59 23:59 23:59 23:59 Intake Total 500 / 500 1008 / 1008 181 / 181 Output Total 350 / 350 1125 / 1125 200 / 200 Balance 150 / 150 -117 / -117 -19 / -19 Weight 73.981 kg 73.981 kg 74.843 kg Constitutional: Present no acute distress, thin, chronically ill appearing and cooperative Head: Present atraumatic and normocephalic ENT: Present normal exam Respiratory: Present normal respiratory effort; Absent rhonchi, wheezes or crackles Cardiac: Present Reg Rate and Rhythm Comment:: Paced rhythm, pacemaker in left upper chest GI: Present soft and normal bowel sounds; Absent distention or tenderness Extremities: Present normal inspection and full ROM; Absent edema Comment:: Thin extremities. Skin: Present intact; Absent erythema Neuro: Present Grossly Intact, alert, awake, oriented x 3 and moves all extremities Assessment and Plan *Assessment and plan (1) NSTEMI (non-ST elevated myocardial infarction): Status: Acute Category: Medical Code(s): I21.4 - Non-ST elevation (NSTEMI) myocardial infarction (2) AICD discharge: Status: Acute Category: Medical Code(s): Z45.02 - Encounter for adjustment and management of automatic implantable cardiac defibrillator (3) Wide-complex tachycardia: Status: Acute Category: Medical Code(s): R00.0 - Tachycardia, unspecified (4) HTN (hypertension): Status: Acute Category: Medical Code(s): I10 - Essential (primary) hypertension (5) Heart failure with reduced ejection fraction (HFrEF): Status: Acute Category: Medical Code(s): I50.20 - Unspecified systolic (congestive) heart failure Plan Patient is a 68-year-old male with past medical history of hypertension hyperlipidemia, CAD arrhythmia status post defibrillator who presents to the hospital due to multiple discharges from the defibrillator. Patient was found to have wide-complex tachycardia. Patient at time of my evaluation denies chest pain shortness of breath nausea vomiting diarrhea constipation dysuria fevers and chills NSTEMI, acute injury posing threat to life/bodily function ICD Discharge Wide Complex Tachycardia HTN HFrEF CAD - Seen by cardiology today. Patient taken for replacement of pacemaker. Transition to atrial lead and BiV wires. - In light of his NSTEMI and increasing troponin that peaked at 9, plan for left heart cath in the morning. - stable now on IV Amio, transition to PO 400mg BID - A-fib first flutter with abberancy or VT, cannot tell based on readings or device download - Continue metoprolol succinate 12.5 mg twice daily, Lipitor 80 mg nightly, aspirin 81 mg daily. -Echo obtained, concerning for EF of 10% with severe biatrial dilation. Discussed case with cardiology, planning for heart cath in the morning as stated previously - proBNP here is 8470, no evidence of volume overload on CXR or physical exam -Initiate Entresto and Farxiga add Entresto and Farxiga - White count 11.4, hemoglobin 13.9. Kidney function normal with BUN 15, creatinine 0.9. Magnesium 1.5 and potassium 4.5. Repeat CBC, CMP, magnesium ordered for the morning. - Continue morphine 2 mg IV as needed every 2 hours for pain with placement of defibrillator in left upper chest. Monitor for toxicity SCDs for DVT prophylaxis Cardiac diet, n.p.o. at midnight Full code
[2024-09-12] MEDS: LIDOCAINE 1% W/EPI 1:100,000 20ML VIAL 20 ML SQ (15:35)
[2024-09-12] MEDS: 0.9 % SODIUM CHLORIDE 1000ML 1,000 ML 25 ML IV (15:36)
--- NOTE | 2024-09-12 16:44 | PC.NURSE ---
Report from medical laboratory technician received. Amio changed to 400mg BID PO.
--- NOTE | 2024-09-12 16:49 | XR_ITS ---
PROCEDURE INFORMATION: Exam: XR Chest Exam date and time: 09/12/2024 5:24 PM Age: 68 years old Clinical indication: Device placement; Cardiac pacemaker placement or adjustment; Additional info: Confirm pacemaker/aid placement TECHNIQUE: Imaging protocol: Radiologic exam of the chest. Views: 1 view. COMPARISON: CR XR CHEST PORTABLE 09/10/2024 5:04 PM FINDINGS: Tubes, catheters and devices: A 3 lead internal cardiac device implanted at the left chest with leads extending to the right heart. Skin staple balloon closure. Lungs: There are moderate centrilobular emphysematous changes of the lungs with an apical gradient. Pleural spaces: Unremarkable. No pleural effusion. No pneumothorax. Heart/Mediastinum: Unremarkable. No cardiomegaly. Bones/joints: Unremarkable. IMPRESSION: No acute findings.
--- NOTE | 2024-09-12 16:59 | PC.NURSE ---
radiology notified for chest xray.
--- NOTE | 2024-09-12 17:14 | PC.NURSE ---
Dr. Michael okayed to stop amio drip prior to PO dose. First PO dose due at 2100.
--- NOTE | 2024-09-12 17:29 | PC.NURSE ---
radiology at bedside.
--- NOTE | 2024-09-12 18:05 | PC.NURSE ---
Addendum entered by Oriana Freedman RN 09/12/24 18:27: MAC vitals every 15 minutes for 4 vitals, then every 30 minutes for 2 vitals, then resume back to every 4 hours. Original Note: Patient Alert and oriented x4, had BI-V AICD upgrade today, tolerated the procedure well. MAC vitals being done currently every 15 minutes for first 4 hours which will end at 2100. Tegaderm, gauze pad dry and intact on left chest wall. Amio dripped switched to PO amio 400mg BID, first dose due at 2100. Lung Sounds are clear, awaiting chest x-ray reading post upgrade, NPO after midnight for a planned LHC tomorrow, SCUDS in place, voiding per urinal, had a bath today with bed change.
--- NOTE | 2024-09-12 19:07 | CA_ITS ---
APPROVED REPORT EXAM: Comprehensive 2D, Doppler, and color-flow Echocardiogram Tape Cutting Machine Operator: Mihaela Sanderson RT(R) Ht: 6 ft 3 in Wt: 163lbs BSA: 2.01 BP: 138/74 mmHg Indications: CM, CAD, AICD firing, ETOH use disorder, hypertension Echo Enhancing Agent Indication: Endocardial border delineation Agent(s) / Amount(s) Used: Definity 2 cc 2D Dimensions Left Atrium 3.91 cm M: 3.0 - 4.0 LVOT 2.15 cm (M/F) 1.5-2.5 M-Mode Dimensions RVDd 1.57 cm (0.9-2.6) LVDd 7.38 cm (3.5-5.7) Ao Diam 3.11 cm (2.0-3.7) LVDs 6.42 cm (3.5-5.7) IVSd 0.88 cm (0.6-1.1) PWd 0.88 cm (0.6-1.1) EF (Teich) 27.00% FS 13.00% EDV (Teich) 287.70 mL ESV (Teich) 210.00 mL Left Ventricle The left ventricle is severely dilated. There is spherical remodeling of the left ventricle. Left ventricular systolic function is severely reduced. There is normal left ventricular wall thickness. There is severe global hypokinesis present. The left ventricular diastolic function is indeterminate. No left ventricle thrombus noted on this study. LVEF is 10% Right Ventricle The right ventricle is mildly dilated. The right ventricular systolic function is mildly reduced. Atria The left atrium is severely dilated. The right atrium is severely dilated. There is no color Doppler evidence of interatrial shunt. Aortic Valve The aortic valve is mildly thickened. There is no hemodynamically significant aortic valvular stenosis. Trace aortic regurgitation is present. Mitral Valve The mitral valve is normal in structure. No evidence of mitral valve stenosis. Mild mitral regurgitation is present. Tricuspid Valve The tricuspid valve leaflets are thin and pliable. Trace tricuspid regurgitation. There is insufficient TR jet to estimate RVSP. Pulmonic Valve The pulmonary valve is grossly normal in structure. Trace pulmonic valve regurgitation is present. Great Vessels The aortic root is normal in size. IVC is normal in size and collapses >50% with inspiration. Pericardium There is no pericardial effusion. Other Information Study Quality: Technically Difficult Conclusion Technically difficult study. Severe LV dilation with spherical remodeling. There is severe reduction in LV systolic function (LVEF 10%). Mild RV dilation with mild reduction in RV function. Severe biatrial dilation. Mild MR. Electronically signed by : Maddy Alfred MD 09/12/2024 16:45:03
[2024-09-12] MEDS: SACUBITRIL/VALSARTAN 24-26MG TABLET 1 EACH PO (20:44)
[2024-09-12] MEDS: MELATONIN 5MG TABLET 10 MG PO (20:44)
[2024-09-12] MEDS: PANTOPRAZOLE 40MG TABLET 40 MG PO (20:44)
[2024-09-12] MEDS: ATORVASTATIN 40MG TABLET 80 MG PO (20:44)
[2024-09-12] MEDS: AMIODARONE 200MG TABLET 400 MG PO (20:45)
[2024-09-12] MEDS: OXYCODONE 5MG W/APAP 325MG TABLET 1 EACH PO (20:45)
[2024-09-13] VITALS (32 sets, daily range): BP systolic 84–135; BP diastolic 48–87; PULSE 60–83; RESP 14–26; TEMP 36.4–36.6; O2SAT 93–99; BMI 20.8
[2024-09-13] MEDS: ACETAMINOPHEN 1,000MG/100ML VIAL 1000 MG IV (04:21)
[2024-09-13 04:58] LABS: Hematocrit 40.7 % (42.0-52.0); Hemoglobin 13.3 g/dL (14.1-18.0); Immature Granulocytes % 0.3 %; Mean Corpuscular HGB Conc 32.7 g/dL (31.8-35.4); Mean Corpuscular Hemoglobin 29.4 pg (27.0-31.2); Mean Corpuscular Volume 89.8 fl (80-94); Nucleated Red Blood Cells % 0 %; Platelet Count 164 K/mm3 (142-424); Red Blood Count 4.53 M/mm3 (4.60-6.20); Red Cell Distribution Width-SD 46.5 fL; White Blood Count 9.3 K/mm3 (4.8-10.8)
[2024-09-13 05:06] LABS: Albumin Level 3.1 g/dl (3.5-5.0); Chloride 104 mmol/L (98-107); Sodium 130 mmol/L (136-145)
[2024-09-13 05:07] LABS: Potassium 4.1 mmoL/L (3.5-5.1)
[2024-09-13 05:09] LABS: Alanine Aminotransferase 19 U/L (12-78); Alkaline Phosphatase 71 U/L (38-126); Anion Gap 9.1 mEq/L (5-15); Aspartate Amino Transferase 37 U/L (17-59); Bilirubin,Total 2.1 mg/dl (0.2-1.3); Blood Urea Nitrogen 17 mg/dl (9-20); Carbon Dioxide 21 mmol/L (22.0-30.0); Creatinine Clearance Estimated 76 mL/min (50-200); Creatinine,Serum 0.90 mg/dl (0.66-1.25); Estimated Glomerular Filt Rate 84 ml/min (>60); GFR (African American) 102 ML/MIN (>60)
[2024-09-13 05:10] LABS: Calcium 8.5 mg/dl (8.4-10.2); Glucose 129 mg/dl (74-100)
[2024-09-13 05:14] LABS: Albumin/Globulin Ratio 0.9 (1.1-1.8); Globulin 3.5 g/dL (1.3-3.2); Total Protein,Serum 6.6 g/dl (6.3-8.2)
[2024-09-13 05:19] LABS: Magnesium 1.9 mg/dl (1.6-2.3)
--- NOTE | 2024-09-13 06:48 | PC.NURSE ---
Patient has done well overnight. Patient has rested the majority of the night only complaints has been soreness mainly left arm up into shoulder area. Patient is NPO he is having a left heart cath today. No consent has been signed yet for the heart cath. Patient had an AICD placed 09/12/24. site is clean dry and intact covered with 4x4 and tegaderm. Patient has scds on for vte prophylaxis. Patient has been v paced on the monitor all night with heart rate in the 70s. Patient has been cooperative all night. At times patient is pleasantly confused but is his baseline. He is able to answer all my questions when asked and when he has the confusion at times after reorienting him he is no longer confused. Patient has talked to his sister on the phone unsure if she will be up today to visit. Patient has a bed alarm on due to recent sedation for AICD.
[2024-09-13] MEDS: ASPIRIN EC 81MG TABLET 81 MG PO (08:19)
[2024-09-13] MEDS: DAPAGLIFLOZIN PROPANEDIOL 10 MG TABLET PO (08:19)
[2024-09-13] MEDS: AMIODARONE 200MG TABLET 400 MG PO ×2 (08:20→21:27)
[2024-09-13] MEDS: METOPROLOL SUCCINATE XL 25MG TABLET 12.5 MG PO ×2 (09:20→21:27)
--- NOTE | 2024-09-13 09:28 | PC.NURSE ---
50 mL water with morning medications. Continuation of care plan.
--- NOTE | 2024-09-13 10:54 | PC.NURSE ---
Patient taken down to laborer pipeline at this time by laborer pipeline staff. Continuation of care plan.
--- NOTE | 2024-09-13 10:59 | IR_ITS ---
APPROVED REPORT Patient Location: Inpatient Acid Blower: Geo Madera RT (R) PROCEDURES Selective coronary angiogram Drug-eluting stent deployment to the ostial proximal dominant right coronary Intravascular ultrasound to the dominant right coronary INDICATION Non-ST elevation myocardial infarction, Coronary artery disease, Complex intervention requiring IVUS guidance Informed consent was obtained prior to the procedure. COMPLICATIONS None Estimated Blood Loss: Less than 10 mls TECHNIQUE One percent lidocaine used to anesthetize the right anterior aspect of the wrist. The right radial artery was accessed via the Seldinger technique. A 6 Greenlandic sheath was placed in the right radial artery. 2.5 mg of Verapamil, 800 mcg of nitroglycerin, 1mg Lidocaine and 5000 U Heparin were given through the arterial sheath. The JL3 catheter was also used to perform selective coronary angiogram. At the end the diagnostic angiogram therapeutic ACT was administered giving a therapeutic ACT and the guide catheter was placed in the right coronary followed by Choice PT extra-support wire placed distally. A 4 mm x 38 mm James frontier stent was placed in the ostial proximal segment at 20 alia reducing the stenosis. Intravascular ultrasound probe was advanced which demonstrated the ostial proximal segment was under deployed therefore a 4.5 x 15 mm noncompliant balloon was introduced into the ostial proximal segment and deployed at 22 alia to post dilate. Repeat IVUS demonstrated much better stent apposition and expansion of the stent. After achieving excellent angiograph results the apparatus was removed the sheath was removed good hemostasis was achieved using TR banding patient was transferred to the postop boarding in stable condition ANGIOGRAPHIC RESULTS The left main artery Normal The left anterior descending artery Gives rise to a large caliber multi branching septal car installations supervisor network which in itself has a 50% stenosis at its origin. Immediately adjacent to this large septal car installations supervisor the LAD is subtotally occluded and fills scantly down into the apex with antegrade flow The circumflex artery Is nondominant and gives rise to a small first septal car installations supervisor which is patent followed by a long but 6 narrow caliber second obtuse marginal artery which has a proximal to mid vessel calcified 90% stenosis. This vessel is approximately 1.5 mm in diameter. Distal to the second obtuse marginal artery the circumflex artery tapers and does not give off any additional substantive marginal branches The right coronary artery Massively large and dominant with an ostial calcified 70 to 80% stenosis followed by proximal 50% stenosis with additional mid vessel 20 to 30% stenosis and a distal eccentric 40% stenosis. 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 Aspirin and Plavix 2. LDL less than 55 to be achieved with high intensity statin 3. DMT for systolic heart failure 4. GDMT for coronary artery disease 5. Avoidance of tobacco products 6. Cardiac rehabilitation 7. Appropriate postoperative care for LOCATION ANALYST-D Electronically signed by : Herbert Miranda MD 09/13/2024 12:11:42
[2024-09-13] MEDS: 0.9 % SODIUM CHLORIDE 500 ML 25 ML IV (11:05)
[2024-09-13] MEDS: LIDOCAINE 1% 10ML MDV 10 ML IJ (11:05)
[2024-09-13] MEDS: VERAPAMIL 2.5MG/ML 2ML VIAL 2.5 MG IV (11:05)
[2024-09-13] MEDS: NITROGLYCERIN 800MCG/8ML SYR (CATH LAB) 800 MCG IA (11:05)
[2024-09-13] MEDS: HEPARIN 1,000 UNITS/500ML NS (CATH LAB) 3000 UNIT IV (11:05)
[2024-09-13] MEDS: HEPARIN 1,000 UNITS/ML 10ML VIAL (CATH LAB) 5000 UNIT IV ×3 (11:05→12:04)
[2024-09-13] MEDS: FENTANYL 100MCG/2ML VIAL 50 MCG IV (12:02)
[2024-09-13] MEDS: MIDAZOLAM HCL 1MG/ML 5ML VIAL 1 MG IV (12:02)
--- NOTE | 2024-09-13 12:26 | PC.NURSE ---
Patient arrived back to ICU at this time. Patient brought by stretcher by laborer carpentry dock staff. Continuation of care plan.
--- NOTE | 2024-09-13 12:30 | PC.NURSE ---
Patient arrived back to ICU at this time. Patient brought by stretcher by laborer hoisting staff. Continuation of care plan.
--- NOTE | 2024-09-13 13:19 | PC.NURSE ---
Report given to FRENCH Tolliver. Continuation of care plan.
--- NOTE | 2024-09-13 13:26 | PC.NURSE ---
Patient taken to Medical Surgical room 204 via wheelchair by RN.
--- NOTE | 2024-09-13 13:52 | P.PN_ITS ---
Subjective *Date: 09/13/24 *Time: 13:52 Interval history: Patient feeling better today. Has minimal pain at left chest/site of pacer replacement. Slept well last night. Stable on room air. No nausea or vomiting. Medical Exam Vital signs and Labs for Last 24 Hours: Vital Signs Temp Pulse Pulse Resp BP BP Pulse Ox 09/13/24 13:27 97.6 F 70 25 H 108/64 L 94 L 09/13/24 13:05 73 24 123/65 97 09/13/24 12:55 09/13/24 12:50 74 19 121/77 97 09/13/24 12:37 71 09/13/24 12:35 76 14 135/87 98 09/13/24 12:32 95 09/13/24 12:26 97.5 F L 71 22 123/74 97 09/13/24 12:15 75 18 129/76 95 09/13/24 12:10 74 20 135/71 95 09/13/24 12:07 75 20 131/74 93 L 09/13/24 12:07 71 73 18 131/74 95 09/13/24 10:05 09/13/24 10:00 16 117/78 09/13/24 09:30 73 22 94 L 09/13/24 09:00 24 121/76 09/13/24 09:00 09/13/24 08:30 69 20 95 09/13/24 08:00 63 23 107/68 L 97 09/13/24 08:00 60 09/13/24 07:42 96 09/13/24 07:30 63 21 96 09/13/24 07:05 83 26 H 92/52 L 94 L 09/13/24 07:02 74 24 84/48 L 97 09/13/24 06:46 09/13/24 06:00 61 16 106/59 L 96 09/13/24 05:00 09/13/24 04:00 97.8 F 67 21 110/62 97 09/13/24 04:00 72 09/13/24 03:00 09/13/24 02:00 71 23 99/51 L 96 09/13/24 02:00 67 96 09/13/24 00:57 09/13/24 00:00 97.7 F 73 21 121/75 96 09/13/24 00:00 78 09/12/24 22:58 09/12/24 22:00 73 22 118/73 95 09/12/24 21:00 09/12/24 20:45 83 18 117/67 95 09/12/24 20:00 97.8 F 82 18 120/71 95 09/12/24 20:00 89 96 09/12/24 20:00 97.8 F 90 18 120/71 96 09/12/24 20:00 78 09/12/24 19:45 84 18 127/76 97 09/12/24 18:50 09/12/24 18:48 87 18 127/77 95 09/12/24 18:45 87 18 127/77 95 09/12/24 18:15 93 H 18 144/90 H 94 L 09/12/24 17:45 97 H 18 136/87 92 L 09/12/24 17:30 86 18 131/78 92 L 09/12/24 17:15 82 18 132/86 95 09/12/24 17:00 09/12/24 17:00 81 18 129/82 95 09/12/24 15:00 09/12/24 15:00 88 18 134/81 95 09/12/24 13:58 84 18 128/79 96 O2 Del Method 09/13/24 13:27 Room Air 09/13/24 13:05 Room Air 09/13/24 12:55 Room Air 09/13/24 12:50 Room Air 09/13/24 12:37 09/13/24 12:35 Room Air 09/13/24 12:32 Room Air 09/13/24 12:26 Room Air 09/13/24 12:15 Room Air 09/13/24 12:10 Room Air 09/13/24 12:07 Room Air 09/13/24 12:07 Room Air 09/13/24 10:05 Room Air 09/13/24 10:00 09/13/24 09:30 Room Air 09/13/24 09:00 09/13/24 09:00 Room Air 09/13/24 08:30 Room Air 09/13/24 08:00 Room Air 09/13/24 08:00 09/13/24 07:42 Room Air 09/13/24 07:30 Room Air 09/13/24 07:05 Room Air 09/13/24 07:02 Room Air 09/13/24 06:46 Room Air 09/13/24 06:00 Room Air 09/13/24 05:00 Room Air 09/13/24 04:00 Room Air 09/13/24 04:00 09/13/24 03:00 Room Air 09/13/24 02:00 Room Air 09/13/24 02:00 Room Air 09/13/24 00:57 Room Air 09/13/24 00:00 Room Air 09/13/24 00:00 09/12/24 22:58 Room Air 09/12/24 22:00 Room Air 09/12/24 21:00 Room Air 09/12/24 20:45 Room Air 09/12/24 20:00 Room Air 09/12/24 20:00 Room Air 09/12/24 20:00 Room Air 09/12/24 20:00 09/12/24 19:45 Room Air 09/12/24 18:50 Room Air 09/12/24 18:48 Room Air 09/12/24 18:45 Room Air 09/12/24 18:15 Room Air 09/12/24 17:45 Room Air 09/12/24 17:30 Room Air 09/12/24 17:15 Room Air 09/12/24 17:00 Room Air 09/12/24 17:00 Room Air 09/12/24 15:00 Room Air 09/12/24 15:00 Room Air 09/12/24 13:58 Room Air Intake and Output 09/12/24 09/13/24 09/13/24 23:59 07:59 15:59 Intake Total 240 / 421 100 / 490 390 / 490 Output Total 390 / 740 325 / 625 300 / 625 Balance -150 / -319 -225 / -135 90 / -135 Intake: Intake, Oral Amount 240 / 240 390 / 390 Intake, Other Amount 100 / 100 Output: Output, Urine Amount 390 / 740 325 / 625 300 / 625 Other: Number of Voids 1 Number of Unmeasured Voids 0 1 Weight 76.113 kg Patient Weight 09/13/24 23:59 Weight 76.113 kg Laboratory Results - last 24 hr 09/13/24 04:38: WBC 9.3, RBC 4.53 L, Hgb 13.3 L, Hct 40.7 L, MCV 89.8, MCH 29.4, MCHC 32.7, RDW 14.3, Plt Count 164 D, MPV 10.7 H, Neut % (Auto) 72.8, Lymph % (Auto) 17.1, Crawford % (Auto) 7.3, Eos % (Auto) 2.0, Baso % (Auto) 0.5, Neut # (Auto) 6.8, Lymph # (Auto) 1.6, Crawford # (Auto) 0.7, Eos # (Auto) 0.2, Baso # (Auto) 0.1, Sodium 130 L, Potassium 4.1, Chloride 104, Carbon Dioxide 21 L, Anion Gap 9.1, BUN 17, Creatinine 0.90, Estimated Creat Clear 76, Estimated GFR 84, Est GFR ( Amer) 102, Glucose 129 H, Calcium 8.5, Magnesium 1.9 D, Total Bilirubin 2.1 H, AST 37 D, ALT 19 D, Alkaline Phosphatase 71, Total Protein 6.6, Albumin 3.1 L, Globulin 3.5 H, Albumin/Globulin Ratio 0.9 L I & O for Labs for Last 24 Hours: Intake & Output 09/10/24 09/11/24 09/12/24 09/13/24 23:59 23:59 23:59 23:59 Intake Total 500 / 500 1008 / 1008 421 / 421 490 / 490 Output Total 350 / 350 1125 / 1125 590 / 740 625 / 625 Balance 150 / 150 -117 / -117 -169 / -319 -135 / -135 Weight 73.981 kg 73.981 kg 74.843 kg 76.113 kg Constitutional: Present no acute distress, thin, chronically ill appearing and cooperative Head: Present atraumatic and normocephalic ENT: Present normal exam Respiratory: Present normal respiratory effort; Absent rhonchi, wheezes or crackles Cardiac: Present Reg Rate and Rhythm Comment:: Paced rhythm, pacer pocket with no significant hematoma. Bandage in place on left chest GI: Present soft and normal bowel sounds; Absent distention or tenderness Extremities: Present normal inspection and full ROM; Absent edema Comment:: Thin extremities. Skin: Present intact; Absent erythema Neuro: Present Grossly Intact, alert, awake, oriented x 3 and moves all extremities Assessment and Plan *Assessment and plan (1) NSTEMI (non-ST elevated myocardial infarction): Status: Acute Category: Medical Code(s): I21.4 - Non-ST elevation (NSTEMI) myocardial infarction (2) AICD discharge: Status: Acute Category: Medical Code(s): Z45.02 - Encounter for adjustment and management of automatic implantable cardiac defibrillator (3) Wide-complex tachycardia: Status: Acute Category: Medical Code(s): R00.0 - Tachycardia, unspecified (4) HTN (hypertension): Status: Acute Category: Medical Code(s): I10 - Essential (primary) hypertension (5) Heart failure with reduced ejection fraction (HFrEF): Status: Acute Category: Medical Code(s): I50.20 - Unspecified systolic (congestive) heart failure Plan Patient is a 68-year-old male with past medical history of hypertension hyperlipidemia, CAD arrhythmia status post defibrillator who presents to the hospital due to multiple discharges from the defibrillator. Patient was found to have wide-complex tachycardia. Patient at time of my evaluation denies chest pain shortness of breath nausea vomiting diarrhea constipation dysuria fevers and chills NSTEMI, acute injury posing threat to life/bodily function ICD Discharge Wide Complex Tachycardia HTN HFrEF CAD - Seen by cardiology today. Taken for left heart cath. Received 1 stent to his RCA. Will monitor overnight and advance diet. Given extensive procedures over the past 2 days, monitor serial kidney function due to contrast load. - Status post replacement of pacemaker on 09/12. With transition to atrial lead and BiV wires. - Tolerating amiodarone 400mg BID -Continue metoprolol succinate 12.5 mg twice daily, Lipitor 80 mg nightly, aspirin 81 mg daily. -Initiate Plavix 75 mg daily. -Echo obtained, concerning for EF of 10% with severe biatrial dilation. - proBNP here is 8470, no evidence of volume overload on CXR or physical exam - Initiate Entresto 24/26 mg as tolerated by blood pressure. Initiate Farxiga 10 mg daily - White count 9.3, hemoglobin stable at 13.3. Kidney function normal with BUN 17, creatinine 0.9. Magnesium 1.9 and potassium 4.1. Repeat BMP, CBC ordered for the morning. - Continue morphine 2 mg IV as needed every 2 hours for pain with placement of defibrillator in left upper chest. Monitor for toxicity SCDs for DVT prophylaxis Cardiac diet Full code
--- NOTE | 2024-09-13 14:05 | P.PN_ITS ---
Subjective Subjective Date: 09/13/24 Time: 13:00 Interval history: No events overnight Had cath today which showed chronically occluded proximal LAD supplying a scarred akinetic myocardium. Also had severe stenosis in ostial proximal dominant right coronary artery with successful stenting reducing 80% stenosis to 0%. Patient reports feeling very well overall. Minimal soreness from device upgrade yesterday. No further arrhythmia. He still has compression bandage on his wrist from the heart cath today. He is eating lunch and reports feeling much better overall. Exam Data for Last 24 hours Vital signs and Labs for Last 24 Hours: Temp Pulse Resp BP Pulse Ox O2 Del Method O2 Flow Rate 97.6 F 70 25 H 108/64 L 94 L Room Air 2 09/13/24 13:27 09/13/24 13:27 09/13/24 13:27 09/13/24 13:27 09/13/24 13:27 09/13/24 13:27 09/10/24 17:36 Laboratory Results - last 24 hr 09/13/24 04:38: WBC 9.3, RBC 4.53 L, Hgb 13.3 L, Hct 40.7 L, MCV 89.8, MCH 29.4, MCHC 32.7, RDW 14.3, Plt Count 164 D, MPV 10.7 H, Neut % (Auto) 72.8, Lymph % (Auto) 17.1, Cook % (Auto) 7.3, Eos % (Auto) 2.0, Baso % (Auto) 0.5, Neut # (Auto) 6.8, Lymph # (Auto) 1.6, Cook # (Auto) 0.7, Eos # (Auto) 0.2, Baso # (Auto) 0.1, Sodium 130 L, Potassium 4.1, Chloride 104, Carbon Dioxide 21 L, Anion Gap 9.1, BUN 17, Creatinine 0.90, Estimated Creat Clear 76, Estimated GFR 84, Est GFR ( Amer) 102, Glucose 129 H, Calcium 8.5, Magnesium 1.9 D, Total Bilirubin 2.1 H, AST 37 D, ALT 19 D, Alkaline Phosphatase 71, Total Protein 6.6, Albumin 3.1 L, Globulin 3.5 H, Albumin/Globulin Ratio 0.9 L I & O for Last 24 hours: Intake & Output 09/10/24 09/11/24 09/12/24 08/05/25 23:59 23:59 23:59 23:59 Intake Total 500 / 500 1008 / 1008 421 / 421 490 / 490 Output Total 350 / 350 1125 / 1125 590 / 740 625 / 625 Balance 150 / 150 -117 / -117 -169 / -319 -135 / -135 Weight 163 lb 1.6 oz 163 lb 1.603 oz 165 lb 167 lb 12.8 oz Constitutional Constitutional: no acute distress and cooperative *Routine HEENT Exam Eye: Present PERRL *Routine Respiratory Exam Respiratory: Present CTA bilaterally; Absent accessory muscle use, wheezes or crackles *Routine Cardiovascular Exam Cardiovascular: Present RRR, Normal S1 and Normal S2; Absent murmur, gallop or rubs Comments: Left chest NEUROLOGY PHYSICIAN ASSISTANT-D site is bandaged. No erythema bruising or swelling. Right radial cath site with compression in place. *Routine Abdominal Exam Abdominal: Present soft; Absent tenderness *Routine Extremities Exam Extremities: Present pulses intact; Absent cyanosis or edema *Routine Skin Exam Skin: Present intact; Absent erythema or wounds *Routine Neurological Exam Neurological: Present alert and oriented X3 Routine Psychiatric Exam Psychiatric: Present cooperative Progress Note: A&P Assessment and plan (1) NSTEMI (non-ST elevated myocardial infarction): Status: Acute (2) AICD discharge: Status: Acute (3) Wide-complex tachycardia: Status: Acute (4) HTN (hypertension): Status: Acute (5) Heart failure with reduced ejection fraction (HFrEF): Status: Acute Assessment and Plan Assessment and Plan for All Diagnoses:: ICD Discharge - 60x shocks for HR >170 - either a-fib/flutter with abberancy or slow VT - stable now on IV Amio - 09/12: successful upgrade to Bi-V ICD and atrial lead placement - 09/13: successful LHC with stenting of RCA. (LAD has ACCOUNT COORDINATOR to akinetic myocardium) Wide Complex tachycardia - A-fib first flutter with abberancy or VT, cannot tell based on readings or device download - stable now on Metoprolol and Amio - 09/13: remains stable on Amio. Will interrogate device again tomorrow now that he has atrial lead to see if we can better classify rhythm HFrEF - Baseline details unclear, patient is poor historian, had ICD lead placed 2018 so presumably weak since that time but also possible he does have arrhythmia, will attempt to gather records - Echo here shows severely dilated LV with spherical remodeling and EF 10% with severe biatrial dilation - NYHA = 1?2 baseline functional status - proBNP here is 8470, no evidence of volume overload on CXR or physical exam - add Entresto and Farxiga - 09/13: Entresto held for low BP but pt now eating and anesthesia clearing, so hopeful he can take later today CAD - new dx this admission in setting of recurrent VT/VF - LHC 09/13 which showed chronically occluded prox LAD supplying a scarred akinetic myocardium. Also had severe stenosis in ostial proximal dominant right coronary artery with successful stenting reducing 80% stenosis to 0%. - CCS = 0 - Cont DAPT, BB, Statin 09/13: CV stable/improving. Ok to transfer out to telemetry and get up ambulating with assistance. Possible DC tomorrow.
[2024-09-13] MEDS: IOPAMIDOL-370 (76%);100ML BOTTLE 80 ML IV (14:15)
[2024-09-13 14:17] LABS: CATHL Activated Clotting Time 230 SEC (74-125)
--- NOTE | 2024-09-13 14:26 | PC.NURSE ---
ROOM AIR O2 SATURATION 93% AT REST
--- NOTE | 2024-09-13 16:35 | ECG_ITS ---
APPROVED REPORT Exam: Resting ECG HR:79 bpm ECG Measurements Heart Rate 79 AXES VT 181 P 56 QRSd 165 QRS -75 QT 454 T 78 QTc 488 Conclusion ELECTRONIC VENTRICULAR PACEMAKER ABNORMAL RHYTHM ECG UNCONFIRMED REPORT Electronically signed by : Donavan Coats MD 09/14/2024 08:33:35
--- NOTE | 2024-09-13 17:19 | PC.NURSE ---
patient is alert and oriented x4. post cath vitals are stable, radial band removed at 1530 and gauze/tegaderm in place. slight ST elevation noted on monitor, ekg ordered, MD notified and reviewed EKG, no cause for concern after reviewing EKG per MD.
[2024-09-13] MEDS: SACUBITRIL/VALSARTAN 24-26MG TABLET 1 EACH PO (21:27)
[2024-09-13] MEDS: MELATONIN 5MG TABLET 10 MG PO (21:29)
[2024-09-13] MEDS: PANTOPRAZOLE 40MG TABLET 40 MG PO (21:29)
[2024-09-13] MEDS: ATORVASTATIN 40MG TABLET 80 MG PO (21:30)
[2024-09-14] VITALS: BP 104/58; PULSE 74; PULSE 79; RESP 16; TEMP 36.7; O2SAT 99
[2024-09-14 04:00] VITALS: BP 128/61; PULSE 70; PULSE 77; RESP 16; TEMP 36.4; O2SAT 95; BMI 24.0
--- NOTE | 2024-09-14 04:16 | PC.NURSE ---
Pt is A&Ox4, Vitals are stable. Right Radial Wrist is covered with a tegaderm and gauze that is Clean dry and intact. Pt is voiding Per Urinal. No c/o pain or dis comfort. call light with in reach. AMAIRANI SHAH RN
[2024-09-14 06:05] LABS: Chloride 106 mmol/L (98-107); Sodium 132 mmol/L (136-145)
[2024-09-14 06:06] LABS: Potassium 4.1 mmoL/L (3.5-5.1)
[2024-09-14 06:08] LABS: Blood Urea Nitrogen 18 mg/dl (9-20); Creatinine Clearance Estimated 80 mL/min (50-200); Creatinine,Serum 1.10 mg/dl (0.66-1.25); Estimated Glomerular Filt Rate 67 ml/min (>60); GFR (African American) 81 ML/MIN (>60)
[2024-09-14 06:09] LABS: Anion Gap 8.1 mEq/L (5-15); Calcium 8.4 mg/dl (8.4-10.2); Carbon Dioxide 22 mmol/L (22.0-30.0); Glucose 117 mg/dl (74-100)
[2024-09-14 06:16] LABS: Hematocrit 42.6 % (42.0-52.0); Hemoglobin 14.1 g/dL (14.1-18.0); Immature Granulocytes % 0.4 %; Mean Corpuscular HGB Conc 33.1 g/dL (31.8-35.4); Mean Corpuscular Hemoglobin 29.6 pg (27.0-31.2); Mean Corpuscular Volume 89.3 fl (80-94); Nucleated Red Blood Cells % 0 %; Platelet Count 183 K/mm3 (142-424); Red Blood Count 4.77 M/mm3 (4.60-6.20); Red Cell Distribution Width-SD 46.1 fL; White Blood Count 7.3 K/mm3 (4.8-10.8)
--- NOTE | 2024-09-14 06:57 | EXP.DC.SUM ---
General Admission date:: 09/10/24 Discharge date: 09/14/24 HPI HPI HPI: Patient is a 68-year-old male with past medical history of hypertension hyperlipidemia, CAD arrhythmia status post defibrillator who presents to the hospital due to multiple discharges from the defibrillator. Patient was found to have wide-complex tachycardia. Patient at time of my evaluation denies chest pain shortness of breath nausea vomiting diarrhea constipation dysuria fevers and chills Hospital Course Hospital Course Hospital Course: Patient is a 68-year-old male with past medical history of hypertension hyperlipidemia, CAD arrhythmia status post defibrillator who presents to the hospital due to multiple discharges from the defibrillator. Patient was found to have wide-complex tachycardia. Patient at time of my evaluation denies chest pain shortness of breath nausea vomiting diarrhea constipation dysuria fevers and chills. Tolerated exchange of pacemaker with addition of AV lead. Status post heart cath yesterday (09/13/2024) with placement of 1 stent to RCA. Did well overnight. Stable discharge home on guideline directed management. Follow with cardiology as an outpatient. Problems addressed as follows: NSTEMI, type II ICD Discharge Wide Complex Tachycardia HTN HFrEF CAD - Presented with over 60 discharges from his defibrillator. Found to be in a flutter with concern for missed read by device shocking him out of what was perceived as V. tach. Device was exchanged by cardiology on 09/12. Replaced pacemaker and added atrial lead and BiV wires. Subsequently underwent left heart cath on 09/13. Received 1 stent to his RCA. Monitored overnight. Able to advance guideline directed therapy with addition of Entresto and Farxiga. Initially started on amiodarone drip due to tachyarrhythmia, transition to oral amiodarone. Will continue at discharge 400 mg twice daily until follow-up with cardiology. Plan to wean at that time. Continue metoprolol succinate 12.5 mg twice daily, Lipitor 80 mg nightly. Initiate Plavix 75 mg daily, transition to aspirin 81 mg daily. Echo obtained, concerning for EF of 10% with severe biatrial dilation. proBNP here is 8470, no evidence of volume overload on CXR or physical exam. Initiate Entresto 24/26 mg as tolerated by blood pressure. Initiate Farxiga 10 mg daily. Labs remained stable with normal white count 7.3 on discharge. Kidney function stable with BUN 18, creatinine 1.1 on day of discharge. Electrolytes normal. Follow-up with cardiology in the next week for further management as an outpatient. Total time spent on discharge 32 minutes in counseling, documentation, chart review, and direct care with patient. Exam Data for Last 24 hours Vital signs and Labs for Last 24 Hours: Temp Pulse Resp BP Pulse Ox O2 Del Method O2 Flow Rate 97.8 F 60 21 92/52 L 96 Room Air 2 09/13/24 04:00 09/13/24 08:00 09/13/24 07:30 09/13/24 07:05 09/13/24 07:42 09/13/24 07:42 09/10/24 17:36 Laboratory Results - last 24 hr 09/13/24 04:38: WBC 9.3, RBC 4.53 L, Hgb 13.3 L, Hct 40.7 L, MCV 89.8, MCH 29.4, MCHC 32.7, RDW 14.3, Plt Count 164 D, MPV 10.7 H, Neut % (Auto) 72.8, Lymph % (Auto) 17.1, Sharp % (Auto) 7.3, Eos % (Auto) 2.0, Baso % (Auto) 0.5, Neut # (Auto) 6.8, Lymph # (Auto) 1.6, Sharp # (Auto) 0.7, Eos # (Auto) 0.2, Baso # (Auto) 0.1, Sodium 130 L, Potassium 4.1, Chloride 104, Carbon Dioxide 21 L, Anion Gap 9.1, BUN 17, Creatinine 0.90, Estimated Creat Clear 76, Estimated GFR 84, Est GFR ( Amer) 102, Glucose 129 H, Calcium 8.5, Magnesium 1.9 D, Total Bilirubin 2.1 H, AST 37 D, ALT 19 D, Alkaline Phosphatase 71, Total Protein 6.6, Albumin 3.1 L, Globulin 3.5 H, Albumin/Globulin Ratio 0.9 L I & O for Last 24 hours: Intake & Output 09/10/24 09/11/24 09/12/24 09/13/24 23:59 23:59 23:59 23:59 Intake Total 500 / 500 1008 / 1008 421 / 421 100 / 100 Output Total 350 / 350 1125 / 1125 590 / 740 325 / 325 Balance 150 / 150 -117 / -117 -169 / -319 -225 / -225 Weight 73.981 kg 73.981 kg 74.843 kg 76.113 kg Constitutional Constitutional: no acute distress, average body habitus, chronically ill appearing and cooperative *Routine HEENT Exam Head: Present normocephalic Eye: Present EOMI and PERRL ENT: Present mucous membranes moist *Routine Neck Exam Neck: Present supple; Absent lymphadenopathy Routine Chest/Breast/Axilla Exam Chest wall: Present tenderness (Over pacemaker pocket) and pacemaker *Routine Respiratory Exam Respiratory: Present CTA bilaterally; Absent respiratory distress, rhonchi, stridor, wheezes or crackles *Routine Cardiovascular Exam Cardiovascular: Present RRR *Routine Abdominal Exam Abdominal: Present soft and normoactive bowel sounds; Absent tenderness, distended or rebound *Routine Rectal Exam Patient deferred: visual exam *Routine Exam Patient deferred: penile exam *Routine Extremities Exam Extremities: Absent cyanosis, clubbing or edema *Routine Skin Exam Skin: Present intact and warm; Absent wounds or rash *Routine Neurological Exam Neurological: Present alert, oriented X3 and moving all extremities; Absent altered mental status Results Data Completed and Pending Labs on day of discharge: Labs from last 24 hours 09/13/24 04:38 WBC 9.3 RBC 4.53 L Hgb 13.3 L Hct 40.7 L MCV 89.8 MCH 29.4 MCHC 32.7 RDW 14.3 Plt Count 164 D MPV 10.7 H Neut % (Auto) 72.8 Lymph % (Auto) 17.1 Sharp % (Auto) 7.3 Eos % (Auto) 2.0 Baso % (Auto) 0.5 Neut # (Auto) 6.8 Lymph # (Auto) 1.6 Sharp # (Auto) 0.7 Eos # (Auto) 0.2 Baso # (Auto) 0.1 Sodium 130 L Potassium 4.1 Chloride 104 Carbon Dioxide 21 L Anion Gap 9.1 BUN 17 Creatinine 0.90 Estimated Creat Clear 76 Estimated GFR 84 Est GFR ( Amer) 102 Glucose 129 H Calcium 8.5 Magnesium 1.9 D Total Bilirubin 2.1 H AST 37 D ALT 19 D Alkaline Phosphatase 71 Total Protein 6.6 Albumin 3.1 L Globulin 3.5 H Albumin/Globulin Ratio 0.9 L DS: Diagnosis Discharge Diagnosis (1) NSTEMI (non-ST elevated myocardial infarction): Status: Acute Code(s): I21.4 - Non-ST elevation (NSTEMI) myocardial infarction Problem details: Type 2, no plaque rupture; supply-demand mismatch (2) AICD discharge: Status: Acute Code(s): Z45.02 - Encounter for adjustment and management of automatic implantable cardiac defibrillator (3) Wide-complex tachycardia: Status: Acute Code(s): R00.0 - Tachycardia, unspecified (4) HTN (hypertension): Status: Acute Code(s): I10 - Essential (primary) hypertension (5) Heart failure with reduced ejection fraction (HFrEF): Status: Acute Code(s): I50.20 - Unspecified systolic (congestive) heart failure (6) Cardiomyopathy, ischemic: Status: Acute Code(s): I25.5 - Ischemic cardiomyopathy (7) Diabetes: Status: Chronic Code(s): E11.9 - Type 2 diabetes mellitus without complications (8) CAD (coronary artery disease): Status: Acute Code(s): I25.10 - Atherosclerotic heart disease of [place] coronary artery without angina pectoris Meds Home Medications and Allergies Home Medications ?Medication ?Instructions ?Recorded ?Confirmed ?Type atorvastatin 80 mg tablet 80 mg PO HS 09/10/24 09/11/24 History metformin 500 mg tablet 500 mg PO BIDWMEAL 09/11/24 09/11/24 History amiodarone 200 mg tablet 400 mg (2 x 200 mg) PO BID 30 days 09/14/24 Rx #120 tabs aspirin 81 mg tablet,delayed 81 mg PO DAILY 30 days #30 tabs 09/14/24 Rx release clopidogrel 75 mg tablet 75 mg PO DAILY 30 days #30 tabs 09/14/24 Rx dapagliflozin propanediol 10 mg 10 mg PO DAILY 30 days #30 tabs 09/14/24 Rx tablet (Farxiga) hydrocodone 5 mg-acetaminophen 325 1 tab PO Q6HP PRN Moderate to 09/14/24 Rx mg tablet severe pain (scale 5-10) 3 days #11 tabs metoprolol succinate 25 mg 12.5 mg (1/2 x 25 mg) PO BID 30 09/14/24 Rx tablet,extended release 24 hr days #30 tabs sacubitril 24 mg-valsartan 26 mg 1 tab PO BID 30 days #60 tabs 09/14/24 Rx tablet (Entresto) New Prescriptions to Start Prescriptions: amiodarone Alec,Moises aspirin Alec,Moises clopidogrel Alec,Moises dapagliflozin propanediol [Farxiga] Alec,Moises hydrocodone-acetaminophen Alec,Moises metoprolol succinate Alec,Moises sacubitril-valsartan [Entresto] Moises Michael Allergies Allergy/AdvReac Type Severity Reaction Status Date / Time No Known Allergies Allergy Verified 09/11/24 05:02 Discharge Plan Disposition Patient Disposition: Home, Self-Care Condition: Fair Discharge Order Discharge Orders: Discharge Order (Routine); Ordered 09/14/24 Ordered By: Moises Michael Follow up Plan Follow up with: Mateo Lemus PA [Physician Foundry Manager, Cardiology] - 09/21/24 9:30 am Problems: AICD discharge; Heart failure with reduced ejection fraction (HFrEF) Herbert Villar DO [Staff Physician, Family Practice] - 09/16/24 10:00 am Prescriptions/Medication Reconciliation: New amiodarone 200 mg Tablet 400 mg PO BID 30 Days Qty: 120 0RF clopidogrel 75 mg Tablet 75 mg PO DAILY 30 Days Qty: 30 0RF aspirin 81 mg Tablet,Delayed Release (Dr/Ec) 81 mg PO DAILY 30 Days Qty: 30 0RF dapagliflozin propanediol [Farxiga] 10 mg Tablet 10 mg PO DAILY 30 Days Qty: 30 0RF hydrocodone-acetaminophen 5-325 mg Tablet 1 tab PO Q6HP PRN (Reason: Moderate to severe pain (scale 5-10)) 3 Days Qty: 11 0RF metoprolol succinate 25 mg Tablet Extended Release 24 Hr 12.5 mg PO BID 30 Days Qty: 30 0RF sacubitril-valsartan [Entresto] 24-26 mg Tablet 1 tab PO BID 30 Days Qty: 60 0RF Continued atorvastatin 80 mg tablet 80 mg PO HS Patient Comments: TAKE 1 TABLET BY MOUTH ONCE DAILY metformin 500 mg tablet 500 mg PO BIDWMEAL Patient Comments: TAKE 1 TABLET BY MOUTH TWICE DAILY WITH MORNING MEAL AND WITH EVENING MEAL Discontinued metoprolol tartrate 25 mg tablet 12.5 mg PO BID Patient Comments: TAKE 1/2 (ONE-HALF) TABLET BY MOUTH TWICE DAILY aspirin 325 MG tablet 325 mg PO DAILY Other Ambulatory Orders: Basic Metabolic Panel (Routine) Timeframe: 20240921 Facility: [facility] - Location: Laboratory Ordered By: Mateo Lemus Complete Blood Count Auto Diff (Routine) Timeframe: 20240921 Facility: [facility] - Location: Laboratory Ordered By: Mateo Lemus Problem Reconciliation Problems Reviewed?: Yes Patient Discharge Instructions ACTIVITY: Continue current activity DIET: continue same diet Patient Instructions: DI for Pacemaker Insertion, DI for Surgical Site Infection Print Language: Amharic Providers Primary Care Provider: Provider,Referral Admit Provider: Moises Michael Attending Provider: Moises Michael
[2024-09-14 08:00] VITALS: BP 99/54; PULSE 70; PULSE 80; RESP 18; TEMP 36.6; O2SAT 94
[2024-09-14] MEDS: CLOPIDOGREL 75MG TAB 75 MG PO (08:14)
[2024-09-14] MEDS: ASPIRIN EC 81MG TABLET 81 MG PO (08:14)
[2024-09-14] MEDS: DAPAGLIFLOZIN PROPANEDIOL 10 MG TABLET PO (08:14)
[2024-09-14] MEDS: METOPROLOL SUCCINATE XL 25MG TABLET 12.5 MG PO (08:14)
[2024-09-14] MEDS: SACUBITRIL/VALSARTAN 24-26MG TABLET 1 EACH PO (09:34)
[2024-09-14] MEDS: AMIODARONE 200MG TABLET 400 MG PO (09:34)
[2024-09-14 09:35] VITALS: BP 124/70; PULSE 85
--- NOTE | 2024-09-14 10:27 | P.PN_ITS ---
Subjective Subjective Date: 09/14/24 Time: 10:00 Interval history: No events overnight Device download indicates no arrythmia Pt denies symptoms Labs/vitals stable Exam Data for Last 24 hours Vital signs and Labs for Last 24 Hours: Temp Pulse Resp BP Pulse Ox O2 Del Method O2 Flow Rate 97.8 F 85 18 124/70 94 L Room Air 2 09/14/24 08:00 09/14/24 09:35 09/14/24 08:00 09/14/24 09:35 09/14/24 08:00 09/14/24 08:58 09/10/24 17:36 Laboratory Results - last 24 hr 09/13/24 11:39: Activated Clotting Time 230 H* 09/14/24 05:48: WBC 7.3, RBC 4.77, Hgb 14.1, Hct 42.6, MCV 89.3, MCH 29.6, MCHC 33.1, RDW 14.1, Plt Count 183, MPV 10.7 H, Neut % (Auto) 66.5, Lymph % (Auto) 20.4, [place] % (Auto) 8.6, Eos % (Auto) 3.7, Baso % (Auto) 0.4, Neut # (Auto) 4.9, Lymph # (Auto) 1.5, [place] # (Auto) 0.6, Eos # (Auto) 0.3, Baso # (Auto) 0.0, Sodium 132 L, Potassium 4.1, Chloride 106, Carbon Dioxide 22, Anion Gap 8.1, BUN 18, Creatinine 1.10 D, Estimated Creat Clear 80, Estimated GFR 67, Est GFR ( Amer) 81 D, Glucose 117 H, Calcium 8.4 I & O for Last 24 hours: Intake & Output 09/11/24 09/12/24 09/13/24 09/14/24 23:59 23:59 23:59 23:59 Intake Total 1008 / 1008 421 / 421 990 / 1140 810 / 810 Output Total 1125 / 1125 590 / 740 2575 / 2575 600 / 600 Balance -117 / -117 -169 / -319 -1585 / -1435 210 / 210 Weight 163 lb 1.603 oz 165 lb 167 lb 12.8 oz 193 lb Microbiology Reports for the Last 24 Hours: Microbiology 09/10/24 18:40 Rectum CRE Surveillance Culture - Final Negative Constitutional Constitutional: no acute distress and cooperative *Routine HEENT Exam Eye: Present PERRL *Routine Respiratory Exam Respiratory: Present CTA bilaterally; Absent accessory muscle use, wheezes or crackles *Routine Cardiovascular Exam Cardiovascular: Present RRR, Normal S1 and Normal S2; Absent murmur, gallop or rubs Comments: 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 No erythema bruising or swelling. Right radial cath site with compression in place. *Routine Abdominal Exam Abdominal: Present soft; Absent tenderness *Routine Extremities Exam Extremities: Present pulses intact; Absent cyanosis or edema *Routine Skin Exam Skin: Present intact; Absent erythema or wounds *Routine Neurological Exam Neurological: Present alert and oriented X3 Routine Psychiatric Exam Psychiatric: Present cooperative Progress Note: A&P Assessment and plan (1) NSTEMI (non-ST elevated myocardial infarction): Problem details: Type 2, no plaque rupture; supply-demand mismatch Status: Acute (2) AICD discharge: Status: Acute (3) Wide-complex tachycardia: Status: Acute (4) HTN (hypertension): Status: Acute (5) Heart failure with reduced ejection fraction (HFrEF): Status: Acute Assessment and Plan Assessment and Plan for All Diagnoses:: ICD Discharge - 60x shocks for HR >170 - either a-fib/flutter with abberancy or slow VT - stable now on IV Amio - 09/12: successful upgrade to Bi-V ICD and atrial lead placement - 09/13: successful LHC with stenting of RCA. (LAD has VOICE INTERCEPT TECHNICIAN to akinetic myocardium) - 09/14: No further arrhythmia with Amio and device upgrade Wide Complex tachycardia - A-fib first flutter with abberancy or VT, cannot tell based on readings or device download - stable now on Metoprolol and Amio - 09/13: remains stable on Amio. Will interrogate device again tomorrow now that he has atrial lead to see if we can better classify rhythm - 09/14: Resolved with Amio HFrEF - Baseline details unclear, patient is poor historian, had ICD lead placed 2018 so presumably weak since that time but also possible he does have arrhythmia, will attempt to gather records - Echo here shows severely dilated LV with spherical remodeling and EF 10% with severe biatrial dilation - NYHA = 1?2 baseline functional status - proBNP here is 8470, no evidence of volume overload on CXR or physical exam - add Entresto and Farxiga - 09/13: Entresto held for low BP but pt now eating and anesthesia clearing, so hopeful he can take later today - 09/14: NYHA = 1?2, tolerating medications. Device implant site is bandaged without complication CAD - new dx this admission in setting of recurrent VT/VF - LHC 09/13 which showed chronically occluded prox LAD supplying a scarred akinetic myocardium. Also had severe stenosis in ostial proximal dominant right coronary artery with successful stenting reducing 80% stenosis to 0%. - CCS = 0 - Cont DAPT, BB, Statin - 09/14: Asymptomatic, tolerating medicines. *09/14: CV stable to DC home on current inpatient meds. Advised him physical and emotional stress need to remain low with his severely weak heart and multivessel disease. He reports good functional capacity at this time and is very thankful for our assistance. He plans to transfer care here rather than transporting back and forth to [facility] for his care. CV DC Meds: Aspirin 81 mg 1 p.o. daily Plavix 75 mg 1 p.o. daily Atorvastatin 80 mg 1 p.o. nightly Amiodarone 400 mg twice daily Farxiga 10 mg 1 p.o. daily Metoprolol succinate 12.5 mg 1 p.o. twice daily Entresto 24-26 mg 1 p.o. twice daily CV Follow up: Cardiology Clinic 1 week
--- NOTE | 2024-09-15 11:38 | SW/DCPLANNER ---
Spoke with patient's on the phone. Patient's stated that he is doing well. Patient's stated that he is aware of his upcoming appointments. Patient's stated that they were able to get patients medicine picked up. Patient's stated that they have no concerns or questions at this time. Estelita MAN Porcelain Technician
== END 2024-09-14 11:19 | disposition home or self-care (01) | DRG 275 ==
LOC: ER 16:37 → ICU 09-11 00:11 → 2ND 09-13 13:32
PROVIDERS: Internal Medicine; Admitting Provider Internal Medicine Adolescent Medicine; Emergency Provider Student in an Organized Health Care Education/Training Program; Visit Provider Internal Medicine Adolescent Medicine
PROC: 0JH609Z Insertion of Cardiac Resynchronization Defibrillator Pulse Generator into Chest Subcutaneous Tissue and Fascia, Open Approach (ICD-10-PCS; CPT 33249; principal; 2024-09-12 15:45)
PROC: 0JWT0PZ Revision of Cardiac Rhythm Related Device in Trunk Subcutaneous Tissue and Fascia, Open Approach (ICD-10-PCS; CPT 33223; 2024-09-12 15:45)
PROC: 4A023N7 Measurement of Cardiac Sampling and Pressure, Left Heart, Percutaneous Approach (ICD-10-PCS; CPT 93452; principal; 2024-09-13 10:45)
DX: I47.20 Ventricular tachycardia, unspecified (principal); I21.A1 Myocardial infarction type 2; I50.22 Chronic systolic (congestive) heart failure; F17.210 Nicotine dependence, cigarettes, uncomplicated; I11.0 Hypertensive heart disease with heart failure; E78.5 Hyperlipidemia, unspecified; I25.10 Atherosclerotic heart disease of native coronary artery without angina pectoris; I25.5 Ischemic cardiomyopathy; E11.9 Type 2 diabetes mellitus without complications; I25.2 Old myocardial infarction; Z45.02 Encounter for adjustment and management of automatic implantable cardiac defibrillator; Z79.82 Long term (current) use of aspirin; Z79.84 Long term (current) use of oral hypoglycemic drugs; Z79.899 Other long term (current) drug therapy
CPT/HCPCS: 36415; 71045; 80048; 80053; 83605; 83735; 83880; 84100; 84443; 84484; 85025; 85347; 85730; 86803; 87081; 87389; 93005; 93306; 99152; 99153; C1725; C1769; C1874; C1882; C1898; C1900; J0131; J0282; J1200; J1644; J1650; J2003; J2004; J2250; J2704; J3010; J3475; J7030; J7040; J7060; J7120; Q9957; Q9967

== ENCOUNTER 2024-09-17 18:51 | Emergency (ER) | payer MEDICARE, SELFPAY ==
[2024-09-17] VITALS (12 sets, daily range): BP systolic 128–152; BP diastolic 72–93; PULSE 64–82; RESP 11–18; TEMP 36.6–36.8; O2SAT 95–99; BMI 20.3
--- OUTSIDE RECORDS SUMMARY | 2024-09-17 19:00 | XMS_ITS ---
Author Organization Unknown TREATMENT PLAN Planned Care Start Date Provider Encounter for Check-up [id number] [facility]
--- OUTSIDE RECORDS SUMMARY | 2024-09-17 19:00 | XMS_ITS | Encounter Summary ---
Author Organization Healthcare Address [address] [place] [address] Care Team Providers Care Periodicals Clerk Name Role Phone Socorro Christian DO Primary Care Provider Encounter Details Date Type Department Care Team ([facility] st Contact Info) Description 01/21/2024 Orders Only External Location [address] [place] [address] Provider, External Social History Tobacco Use Types [...] on filedocumented in this encounter Care Teams Periodicals Clerk Relationship Specialty Start Date End Date Socorro Christian DO [address] [place] [address] PCP - General 06/22/20 documented as of this encounter
--- OUTSIDE RECORDS SUMMARY | 2024-09-17 19:00 | XMS_ITS | Encounter Summary ---
Author Organization Healthcare Address [address] [place] [address] Care Team Providers Care Venetian Blind Assembler Name Role Phone Socorro Christian DO Primary Care Provider [phone] Encounter Details Date Type Department Care Team ([facility] st Contact Info) Description 05/20/2022 Orders Only External Location [address] [place] [address] Provider, External Social History Tobacco Use Types [...] on filedocumented in this encounter Care Teams Venetian Blind Assembler Relationship Specialty Start Date End Date Socorro Christian DO [address] [place] [address] PCP - General 06/22/20 documented as of this encounter
--- OUTSIDE RECORDS SUMMARY | 2024-09-17 19:00 | XMS_ITS | Clinical Summary ---
Author Organization Healthcare Address [address] [place] [address] Care Team Providers Care Seasonal Retail Merchandiser Name Role Phone Socorro Christian DO Primary Care Provider [phone] Allergies No known active allergies Medications metFORMIN [...] Panlobular emphysema 07/20/2020 Cardiomyopathy 07/19/2020 Pacemaker 07/18/2020 OK (myocardial infarction) 07/18/2020 Good tolerance for activity [...] 10/01/2000 UKY-Zoster Vaccines (1 of 2) 10/01/2005 [id number] Vaccine ( season) 2023 01/17/2021, 07/19/2020, 06/21/2020 [...] complete this topic Insurance MEDICARE Care Teams Seasonal Retail Merchandiser Relationship Specialty Start Date End Date Socorro Christian DO [address] [place] [address] PCP - General 06/22/20
--- OUTSIDE RECORDS SUMMARY | 2024-09-17 19:00 | XMS_ITS | Encounter Summary ---
Author Organization Healthcare Address [address] [place] [address] Care Team Providers Care Apns Name Role Phone Socorro Christian DO Primary Care Provider [phone] Reason for Referral * Consultation (Routine) - Closed Specialty Diagnoses / Procedures Referred By Nora t Referred To Contact Pulmonary Disease / Pulmonology Diagnoses Ground glass opacity present on imaging of lung Socorro Christian, DO [address] [place] [address] Phone: tel: fax: [facility] [address] [place] [address] Phone: tel: fax: Referral ID Status Reason Start Date Expiration Date V isits Requested Visits Authorized [id number] Closed Specialty Services Required 01/26/2024 07/27/2025 1 1 Encounter Details Date Type Department Care Team (Late st Contact Info) Description 01/26/2024 Community Orders Community [facility] [address] [place] [address] Socorro Christian, DO [address] [place] [address] Ground glass opacity present on imaging of [...] Primary documented in this encounter Care Teams Apns Relationship Specialty Start Date End Date Socorro Christian DO [address] [place] [address] PCP - General 06/22/20 documented as of this encounter
--- NOTE | 2024-09-17 19:02 | ECG_ITS ---
APPROVED REPORT Exam: Resting ECG HR:78 bpm ECG Measurements Heart Rate 78 AXES ID 160 P 71 QRSd 169 QRS 265 QT 457 T 72 QTc 490 Conclusion Ventricular paced EKG at [address] or T wave changes concerning for ischemia Electronically signed by : Sheri Davis, 09/18/2024 00:34:16
--- NOTE | 2024-09-17 19:06 | HMH.EDGENADL ---
Discharge Plan Disposition Patient Disposition: Home, Self-Care Condition: Good Prescriptions Prescriptions: New bumetanide 1 mg tablet 1 mg PO DAILY Qty: 30 0RF No Action atorvastatin 80 mg tablet 80 mg PO HS Qty: 30 3RF metformin 500 mg tablet 500 mg PO BIDWMEAL Patient Comments: TAKE 1 TABLET BY MOUTH TWICE DAILY WITH MORNING MEAL AND WITH EVENING MEAL amiodarone 200 mg Tablet 400 mg PO BID 30 Days Qty: 120 0RF clopidogrel 75 mg Tablet 75 mg PO DAILY 30 Days Qty: 30 0RF aspirin 81 mg Tablet,Delayed Release (Dr/Ec) 81 mg PO DAILY 30 Days Qty: 30 0RF hydrocodone-acetaminophen 5-325 mg Tablet 1 tab PO Q6HP PRN (Reason: Moderate to severe pain (scale 5-10)) 3 Days Qty: 11 0RF metoprolol succinate 25 mg Tablet Extended Release 24 Hr 12.5 mg PO BID 30 Days Qty: 30 0RF sacubitril-valsartan [Entresto] 24-26 mg Tablet 1 tab PO BID 30 Days Qty: 60 0RF Referrals Follow up/Referrals: Herbert Villar DO [Primary Care Provider, Family Practice] - See instructions Activity Restrictions/Add. Instructions Additional Instructions/Restrictions: Follow-up with cardiology on Thursday at 9am. Take the bumex daily until you follow-up with cardiology. Clinical Impressions Clinical Impression: Weakness Print Language Print Language: Egyptian Discharge ED Provider: Sheri Davis General Adult HPI General Chief complaint: Weakness Stated complaint: Post Op Stent; General Weakness; Sweaty; Nausea Time Seen by Provider: 09/17/24 18:56 Mode of Arrival: Ambulatory Source of Information: Patient and Spouse Description of Symptoms (Recalled from ER Triage Doc. by RN): patient presents to the emergency deartment for generalized weakness, diaphoresis and overall not feeling well. the patient is status post pacemaker/defibralator on thursday and status post stent placement on thursday. History of Present Illness HPI narrative: Patient is a 60-year-old gentleman who was recently discharged from the hospital after a recent new pacemaker defibrillator placement and cardiac stent who presents to the emergency department with concern for weakness, diaphoresis and generally feeling unwell. Patient has felt mildly lightheaded but has not had any vertigo. Patient denies any chest pain or shortness of breath. Patient denies any abdominal pain nausea vomiting or diarrhea. Patient states that he ate a sandwich last night and some of his symptoms seem to occurred after that. Patient has not had any fevers. Patient has not had any other infectious symptoms. Patient has not had any syncope. Patient states that he has been taking his medications as prescribed except for his Farxiga which she is unable to afford. Related Data Home Medications ?Medication ?Instructions ?Recorded ?Confirmed metformin 500 mg tablet 500 mg PO BIDWMEAL 09/11/24 09/19/24 Previous Rx's ?Medication ?Instructions ?Recorded amiodarone 200 mg tablet 400 mg (2 x 200 mg) PO BID 30 days 09/14/24 #120 tabs aspirin 81 mg tablet,delayed 81 mg PO DAILY 30 days #30 tabs 09/14/24 release clopidogrel 75 mg tablet 75 mg PO DAILY 30 days #30 tabs 09/14/24 hydrocodone 5 mg-acetaminophen 325 1 tab PO Q6HP PRN Moderate to 09/14/24 mg tablet severe pain (scale 5-10) 3 days #11 tabs metoprolol succinate 25 mg 12.5 mg (1/2 x 25 mg) PO BID 30 09/14/24 tablet,extended release 24 hr days #30 tabs sacubitril 24 mg-valsartan 26 mg 1 tab PO BID 30 days #60 tabs 09/14/24 tablet (Entresto) bumetanide 1 mg tablet 1 mg PO DAILY #30 tabs 09/17/24 atorvastatin 80 mg tablet 80 mg PO HS #30 tabs 09/19/24 Allergies Allergy/AdvReac Type Severity Reaction Status Date / Time No Known Allergies Allergy Verified 09/19/24 09:06 [facility] Disclaimer: The information contained in this section may have been updated after the patient was seen, as this information can be updated by other users. Medical History (Updated 09/19/24 @ 09:08 by Scarlet Butcher RN) Coronary artery disease Warthin's tumor Presence of combination internal cardiac defibrillator (ICD) and pacemaker Warthin's tumor Heart attack HLD (hyperlipidemia) HTN (hypertension) Diabetes Surgical History (Updated 09/19/24 @ 09:08 by Scarlet Butcher RN) Cardiac resynchronization therapy defibrillator ([employer]EL[employer]-D) in place Automatic implantable cardioverter-defibrillator in situ Family History Other Cancer Social History Smoking Status: Current every day smoker tobacco type: cigarettes packs per day: 1 alcohol intake: current substance use type: denies use current occupational status: retired Travel in the last 8 weeks?: None current occupational exposures/hazards: No caffeine: Yes Other Medical History Have you received the Flu Vaccine for this season: No Have you received the Pneumonia Vaccine: No ROS Obtained: Yes All systems reviewed & no additional complaints except as documented and Yes Systems reviewed as appropriate & no additional complaints except as documented Physical Exam General General appearance: alert and in no apparent distress Head Head exam: atraumatic, normocephalic and normal inspection Eye Eye exam: Present normal appearance, PERRL and EOMI; Absent scleral icterus ENT ENT exam: Present normal exam and normal external ear exam Neck Neck exam: Present normal inspection and full ROM Chest Chest inspection: Present normal inspection and symmetric chest wall rise Respiratory Respiratory exam: Present normal lung sounds bilaterally; Absent respiratory distress or wheezes Cardiovascular Cardiovascular exam: Present regular rate, normal rhythm and normal heart sounds Abdominal Exam Abdominal exam: Present soft and distention; Absent tenderness, guarding or rebound Extremities Exam Extremities exam: Present normal inspection and full ROM Back Exam Back exam: Present normal inspection and full ROM Neurological Exam Neurological exam: Present alert and oriented X3 Psychiatric Psychiatric exam: Present normal affect and normal mood Skin Skin exam: Present warm and dry Medical Decision Making Medical Records Medical records reviewed: Yes I reviewed the patient's medical records. Screening: Per USPSTF and CDC recommendations, given the prevalence of disease in our region, it is our hospital?s policy to screen for HIV and viral Hepatitis for all patients aged 18 and over and those with ongoing risk factors. Wilmer Inquiry Pt receiving controlled substance: No Vital Signs: 09/17/24 19:01 09/17/24 19:02 09/17/24 19:30 Temperature 98.2 F Temperature Source Oral Pulse Rate 82 69 Pulse Rate [Right Radial] 78 Respiratory Rate 14 18 16 Blood Pressure 152/93 H 138/80 Blood Pressure [Right Arm] 146/85 H Blood Pressure Mean [Right Arm] 105 Blood Pressure Source Blood Pressure Source [Right Arm] Automatic Cuff Blood Pressure Position Blood Pressure Position [Right Arm] Sitting 02 Sat by Pulse Oximetry 99 95 97 Oxygen Delivery Method Room Air 09/17/24 20:00 09/17/24 20:30 09/17/24 21:01 Temperature Temperature Source Pulse Rate 68 65 67 Pulse Rate [Right Radial] Respiratory Rate 16 11 L 16 Blood Pressure 144/81 H 135/77 131/79 Blood Pressure [Right Arm] Blood Pressure Mean [Right Arm] Blood Pressure Source Blood Pressure Source [Right Arm] Blood Pressure Position Blood Pressure Position [Right Arm] 02 Sat by Pulse Oximetry 99 99 97 Oxygen Delivery Method 09/17/24 21:30 09/17/24 22:00 09/17/24 22:30 Temperature Temperature Source Pulse Rate 64 67 64 Pulse Rate [Right Radial] Respiratory Rate 15 12 17 Blood Pressure 128/79 131/79 130/88 Blood Pressure [Right Arm] Blood Pressure Mean [Right Arm] Blood Pressure Source Blood Pressure Source [Right Arm] Blood Pressure Position Blood Pressure Position [Right Arm] 02 Sat by Pulse Oximetry 98 97 97 Oxygen Delivery Method 09/17/24 23:00 09/17/24 23:30 09/17/24 23:52 Temperature 97.9 F Temperature Source Oral Pulse Rate 67 69 74 Pulse Rate [Right Radial] Respiratory Rate 12 12 16 Blood Pressure 129/82 134/75 135/72 Blood Pressure [Right Arm] Blood Pressure Mean [Right Arm] Blood Pressure Source Automatic Cuff Blood Pressure Source [Right Arm] Blood Pressure Position Supine Blood Pressure Position [Right Arm] 02 Sat by Pulse Oximetry 97 97 Oxygen Delivery Method Room Air Lab Data Lab results reviewed: Yes I reviewed the patient's lab results. Lab Results 09/17/24 19:01: WBC 10.3, RBC 5.01, Hgb 15.0, Hct 45.6, MCV 91.0, MCH 29.9, MCHC 32.9, RDW 13.9, Plt Count 282 D, MPV 10.6 H, Neut % (Auto) 70.7, Lymph % (Auto) 18.6, [place] % (Auto) 7.0, Eos % (Auto) 2.7, Baso % (Auto) 0.6, Neut # (Auto) 7.3, Lymph # (Auto) 1.9, [place] # (Auto) 0.7, Eos # (Auto) 0.3, Baso # (Auto) 0.1, Sodium 135 L, Potassium 4.6, Chloride 104, Carbon Dioxide 23, Anion Gap 12.6, BUN 21 H, Creatinine 1.10, Estimated Creat Clear 67, Estimated GFR 67, Est GFR ( Amer) 81, Glucose 160 H, Calcium 9.4, Phosphorus 4.5, Magnesium 1.7, Total Bilirubin 1.3, AST 39, ALT 24, Alkaline Phosphatase 86, Troponin I 0.15 H, Total Protein 8.2, Albumin 4.6, Globulin 3.6 H, Albumin/Globulin Ratio 1.3 09/17/24 19:19: VBG Lactic Acid 1.2 09/17/24 20:00: Urine Color Yellow, Urine Appearance Clear, Urine pH 6.0, Ur Specific [place] 1.025, Urine Protein Negative, Urine Glucose (UA) Negative, Urine Ketones Negative, Urine Blood Negative, Urine Nitrate Negative, Urine Bilirubin Negative, Urine Urobilinogen 0.2, Ur Leukocyte Esterase Negative, Urine RBC None, Urine WBC None, Ur Squamous Epith Cells Occasional, Urine Bacteria None 09/17/24 22:13: Troponin I 0.15 H 09/17/24 19:01 09/17/24 19:01 Orders (Tests/Meds): ED MEDICATIONS Discontinued Medications Generic Name Dose Route Start Last Admin Trade Name Freq PRN Reason Stop Dose Admin Bumetanide 1 mg 09/17/24 23:14 09/17/24 23:18 Bumetanide 1mg/4ml Vial IV 09/17/24 23:15 1 mg ONCE ONE Administration ORDERS Category Date Time Status CXR --portable [XR chest portable] Stat Exams 09/17/24 19:17 Completed CBC w/Auto Diff [Complete Blood Count Auto Diff] Stat Lab 09/17/24 19:01 Completed CMP [Comprehensive Metabolic Panel] Stat Lab 09/17/24 19:01 Completed Lactate Venous Stat Lab 09/17/24 19:19 Completed MAG [Magnesium] Stat Lab 09/17/24 19:01 Completed PHOS [Phosphorous] Stat Lab 09/17/24 19:01 Completed Trop I [Troponin I] Stat Lab 09/17/24 19:01 Completed Troponin I Q3H Lab 09/17/24 22:13 Completed UA [Urinalysis and Microscopic] Stat Lab 09/17/24 20:00 Completed Urine Culture Stat Micro 09/17/24 20:00 Results Medical Decision Narrative: Patient is a 60-year-old gentleman with a past medical history of coronary artery disease, discharged from the hospital 2 days ago after stent placement and new pacemaker defibrillator placed who presented to the emergency department with generally feeling unwell, diaphoresis and weakness. On arrival, patient was hemodynamically stable with unremarkable vital signs. Differential includes but not limited to: ACS/NH, pneumothorax, pleural effusion, pneumonia, electrolyte abnormalities, arrhythmia, amongst others. Labs were reviewed and interpreted by myself, CBC showed no leukocytosis, hemoglobin was stable. CMP was unremarkable. Patient's initial troponin was mildly elevated at 0.15. Second troponin 0.15. Chest x-ray was reviewed and interpreted by myself and showed no acute for consolidation, pneumothorax, pleural effusion or other acute cardiopulmonary process Patient's EKG was reviewed and interpreted by myself and showed a ventricular paced rhythm without acute ST or T wave changes concerning for ischemia. Given patient's mildly elevated troponins, I did discuss the case with cardiology given patient's recent stent and new defibrillator placement. Cardiology stated that his elevated troponin was not concerning to them at this time but given patient's weakness they did recommend that patient get IV Bumex in the emergency department given his significant heart failure. Patient was given 1 mg of IV Bumex and sent home with a prescription for oral Bumex. They recommended that patient be seen in clinic on Thursday morning. Patient was given a 9 AM appointment. Patient was otherwise discharged home in stable condition given his otherwise unremarkable workup. Critical Care Critical Care Time Critical Care Time: No
--- NOTE | 2024-09-17 19:17 | XR_ITS ---
PROCEDURE INFORMATION: Exam: XR Chest Exam date and time: 09/17/2024 7:23 PM Age: 68 years old Clinical indication: Other: Weakness TECHNIQUE: Imaging protocol: Radiologic exam of the chest. Views: 1 view. COMPARISON: CR XR CHEST PORTABLE 09/12/2024 5:24 PM FINDINGS: Tubes, catheters and devices: Triple chamber pacemaker/cardioverter in appropriate position with lead tips in the right atrium, coronary sinus, and right ventricle. Airway: Airways are patent. Lungs: Lungs are clear. Pleural spaces: No pleural effusions or pneumothorax. Heart/Mediastinum: Moderate cardiomegaly. Vasculature: Calcified aortic knob. Bones/joints: Severe osteoarthritis of the left glenohumeral joint. No acute skeletal abnormality or aggressive osseous lesion. Soft tissues: No acute soft tissue findings. IMPRESSION: No acute thoracic pathology.
[2024-09-17 19:29] LABS: Albumin Level 4.6 g/dl (3.5-5.0); Chloride 104 mmol/L (98-107)
[2024-09-17 19:30] LABS: Potassium 4.6 mmoL/L (3.5-5.1); Sodium 135 mmol/L (136-145)
[2024-09-17 19:32] LABS: Alanine Aminotransferase 24 U/L (12-78); Albumin/Globulin Ratio 1.3 (1.1-1.8); Anion Gap 12.6 mEq/L (5-15); Aspartate Amino Transferase 39 U/L (17-59); Blood Urea Nitrogen 21 mg/dl (9-20); Carbon Dioxide 23 mmol/L (22.0-30.0); Creatinine Clearance Estimated 67 mL/min (50-200); Creatinine,Serum 1.10 mg/dl (0.66-1.25); Estimated Glomerular Filt Rate 67 ml/min (>60); GFR (African American) 81 ML/MIN (>60); Globulin 3.6 g/dL (1.3-3.2); Total Protein,Serum 8.2 g/dl (6.3-8.2)
[2024-09-17 19:33] LABS: Alkaline Phosphatase 86 U/L (38-126); Bilirubin,Total 1.3 mg/dl (0.2-1.3); Calcium 9.4 mg/dl (8.4-10.2); Glucose 160 mg/dl (74-100); Magnesium 1.7 mg/dl (1.6-2.3); Phosphorous 4.5 mg/dl (2.5-4.5)
[2024-09-17 19:39] LABS: Hematocrit 45.6 % (42.0-52.0); Hemoglobin 15.0 g/dL (14.1-18.0); Immature Granulocytes % 0.4 %; Mean Corpuscular HGB Conc 32.9 g/dL (31.8-35.4); Mean Corpuscular Hemoglobin 29.9 pg (27.0-31.2); Mean Corpuscular Volume 91.0 fl (80-94); Nucleated Red Blood Cells % 0 %; Platelet Count 282 K/mm3 (142-424); Red Blood Count 5.01 M/mm3 (4.60-6.20); Red Cell Distribution Width-SD 46.8 fL; White Blood Count 10.3 K/mm3 (4.8-10.8)
[2024-09-17 19:45] LABS: Troponin I 0.15 ng/ml (0.00-0.034)
[2024-09-17 20:06] LABS: Lactate Venous 1.2 mmol/L (0.4-2.0)
[2024-09-17 20:07] LABS: Microscopic, Urine URINE MICROSCOPIC (MICROSCOPIC)
[2024-09-17 20:14] LABS: Bilirubin,Urine Negative (Negative); Color,Urine YELLOW (Yellow); Glucose,Urine (UA) Negative (Negative); Ketones,Urine Negative (Negative); Leukocyte Esterase,Urine Negative (Negative); PH,Urine 6.0 (5.0-8.5); Protein,Urine Negative (Negative); Specific Gravity, Urine 1.025 (1.005-1.030); Urobilinogen,Urine 0.2 EU/dl (0.2)
[2024-09-17 21:04] LABS: Squamous Epithelial Cell,Urine Occasional #/hpf (0-5)
[2024-09-17 22:46] LABS: Troponin I 0.15 ng/ml (0.00-0.034)
[2024-09-17] MEDS: BUMETANIDE 1MG/4ML VIAL 1 MG IV (23:18)
--- NOTE | 2024-09-24 15:22 | INFXCTL.NOTE ---
I discussed the pts final urine culture result with . No changed needed to his treatment.
== END 2024-09-17 23:59 | disposition home or self-care (01) ==
PROVIDERS: Emergency Provider Student in an Organized Health Care Education/Training Program; PCP Internal Medicine
DX: R53.1 Weakness (principal); R11.0 Nausea; F17.210 Nicotine dependence, cigarettes, uncomplicated; I10 Essential (primary) hypertension; E78.5 Hyperlipidemia, unspecified; Z86.79 Personal history of other diseases of the circulatory system; Z95.0 Presence of cardiac pacemaker; Z95.5 Presence of coronary angioplasty implant and graft
CPT/HCPCS: 71045; 80053; 81001; 83605; 83735; 84100; 84484; 85025; 87086; 87088; 93005; 96374; 99284; J1939

== ENCOUNTER 2024-09-21 13:02 | Outpatient (CLI) | payer MEDICARE, SELFPAY ==
--- OUTSIDE RECORDS SUMMARY | 2024-09-21 13:08 | XMS_ITS | Encounter Summary ---
Author Organization Healthcare Address [address] [place] [address] Care Team Providers Care Site Coordinator Name Role Phone Socorro Christian DO Primary Care Provider [phone] Encounter Details Date Type Department Care Team ([facility] st Contact Info) Description 01/21/2024 Orders Only External Location [address] [place] [address] Provider, External Social History Tobacco Use Types [...] on filedocumented in this encounter Care Teams Site Coordinator Relationship Specialty Start Date End Date Socorro Christian DO [address] [place] [address] PCP - General 06/22/20 documented as of this encounter
--- OUTSIDE RECORDS SUMMARY | 2024-09-21 13:08 | XMS_ITS | Encounter Summary ---
Author Organization Healthcare Address [address] [place] [address] Care Team Providers Care Spring Intern Name Role Phone Socorro Christian DO Primary Care Provider [phone] Reason for Referral * Consultation (Routine) - Closed Specialty Diagnoses / Procedures Referred By Nora t Referred To Contact Pulmonary Disease / Pulmonology Diagnoses Ground glass opacity present on imaging of lung Socorro Christian, DO [address] [place] [address] Phone: tel: fax: [facility] [address] [place] [address] Phone: tel: fax: Referral ID Status Reason Start Date Expiration Date V isits Requested Visits Authorized [id number] Closed Specialty Services Required 01/26/2024 07/27/2025 1 1 Encounter Details Date Type Department Care Team (Late st Contact Info) Description 01/26/2024 Community Orders Community Practice [address] [place] [address] Socorro Christian, DO [address] [place] [address] Ground glass opacity present on imaging of [...] Primary documented in this encounter Care Teams Spring Intern Relationship Specialty Start Date End Date Socorro Christian DO [address] [place] [address] PCP - General 06/22/20 documented as of this encounter
--- OUTSIDE RECORDS SUMMARY | 2024-09-21 13:08 | XMS_ITS | Clinical Summary ---
Author Organization Healthcare Address [address] [place] [address] Care Team Providers Care Electronic Engineering Draftsperson Name Role Phone Socorro Christian DO Primary Care Provider [phone] Allergies No known active allergies Medications metFORMIN [...] Panlobular emphysema 07/20/2020 Cardiomyopathy 07/19/2020 Pacemaker 07/18/2020 [place] (myocardial infarction) 07/18/2020 Good tolerance for activity [...] Date Last Done Comments [facility]-Depression Screening 1955 [facility]-Infant/Child/Adol SDOH Screenings 1955 [facility]- SDOH Screenings 10/01/1973 [facility]-Adult SDOH Screenings 10/01/1973 [facility]-DTaP,Tdap,and Td Vaccine s (1 - Tdap) 10/01/1974 CT Colonography 10/01/2000 Colonoscopy 10/01/2000 FIT-DNA 10/01/2000 FIT 10/01/2000 FOBT 10/01/2000 Sigmoidoscopy 10/01/2000 [facility]-Colorectal Cancer Screening 10/01/2000 [facility]-Zoster Vaccines (1 of 2) 10/01/2005 [id number] Vaccine ( season) 2023 01/17/2021, 07/19/2020, 06/21/2020 [...] complete this topic Insurance MEDICARE Care Teams Electronic Engineering Draftsperson Relationship Specialty Start Date End Date Socorro Christian DO [address] [place] [address] PCP - General 06/22/20
--- OUTSIDE RECORDS SUMMARY | 2024-09-21 13:08 | XMS_ITS | Encounter Summary ---
Author Organization Healthcare Address [address] [place] [address] Care Team Providers Care Motion Picture Camera Operator Name Role Phone Socorro Christian DO Primary Care Provider [phone] Encounter Details Date Type Department Care Team ([facility] st Contact Info) Description 05/20/2022 Orders Only External Location [address] [place] [address] Provider, External Social History Tobacco Use Types [...] on filedocumented in this encounter Care Teams Motion Picture Camera Operator Relationship Specialty Start Date End Date Socorro Christian DO [address] [place] [address] PCP - General 06/22/20 documented as of this encounter
--- NOTE | 2024-09-21 13:16 | XR_ITS ---
FINAL REPORT CLINICAL HISTORY: Cardiomegaly COMPARISON: 09/17/2024 FINDINGS: PA and lateral views of the chest were obtained. A left-sided pacer is present. No acute pulmonary density is evident. There is no evidence of effusion. Changes of emphysema. The mediastinum has a normal appearance. The cardiac silhouette is unremarkable. IMPRESSION: No acute process. Reviewed, Interpreted and Dictated by Liborio Dahl MD Transcribed by Janelle Winston Authenticated and [facility]
[2024-09-21 13:45] LABS: Hematocrit 46.4 % (42.0-52.0); Hemoglobin 15.6 g/dL (14.1-18.0); Immature Granulocytes % 0.4 %; Mean Corpuscular HGB Conc 33.6 g/dL (31.8-35.4); Mean Corpuscular Hemoglobin 30.2 pg (27.0-31.2); Mean Corpuscular Volume 89.9 fl (80-94); Nucleated Red Blood Cells % 0 %; Platelet Count 350 K/mm3 (142-424); Red Blood Count 5.16 M/mm3 (4.60-6.20); Red Cell Distribution Width-SD 45.8 fL; White Blood Count 9.4 K/mm3 (4.8-10.8)
[2024-09-21 14:58] LABS: Anion Gap 13.6 mEq/L (5-15); Blood Urea Nitrogen 27 mg/dl (9-20); Calcium 9.5 mg/dl (8.4-10.2); Carbon Dioxide 25 mmol/L (22.0-30.0); Chloride 106 mmol/L (98-107); Creatinine,Serum 1.50 mg/dl (0.66-1.25); Estimated Glomerular Filt Rate 47 ml/min (>60); GFR (African American) 56 ML/MIN (>60); Glucose 129 mg/dl (74-100); Potassium 4.6 mmoL/L (3.5-5.1); Sodium 140 mmol/L (136-145)
[2024-09-21 15:08] LABS: NT Pro Brain Natriuretic Pep. 5670 pg/mL (0-125)
== END 2024-09-21 23:59 | disposition home or self-care (01) ==
LOC: LAB 13:04
PROVIDERS: Physician Assistant; PCP Internal Medicine; Visit Provider Nurse Practitioner Family
DX: I21.4 Non-ST elevation (NSTEMI) myocardial infarction (principal); I11.0 Hypertensive heart disease with heart failure; I50.20 Unspecified systolic (congestive) heart failure; I25.5 Ischemic cardiomyopathy
CPT/HCPCS: 36415; 71046; 80048; 83880; 85025

== ENCOUNTER 2024-10-28 11:10 | Outpatient (CLI) | payer MEDICARE, SELFPAY ==
--- NOTE | 2024-10-28 11:00 | CA_ITS ---
APPROVED REPORT EXAM: Limited 2D Echocardiogram with contrast Wildlife Management Professor: RT Sabino(R) Ht: 6 ft 3 in Wt: 156lbs BSA: 1.97 BP: 117/55 mmHg Indications: HFrEF. Ordered as limited to reassess EF Echo Enhancing Agent Indication: Endocardial border delineation Agent(s) / Amount(s) Used: Definity 2 cc 2D Dimensions IVSd 1.03 cm M: 0.6-1.2 EF AP4 24.40 % PWd 0.87 cm M: 0.6 - 1.2 GL Strain -3.1 % LVDd 7.41 cm M: 4.2 - 5.9 M-Mode Dimensions RVDd 2.38 cm (0.9-2.6) LVDd 7.41 cm (3.5-5.7) LVDs 6.49 cm (3.5-5.7) IVSd 0.93 cm (0.6-1.1) PWd 0.70 cm (0.6-1.1) EF (Teich) 27.20% FS 13.10% EDV (Teich) 295.60 mL ESV (Teich) 215.20 mL LV Diastology E Decel Time 236 (160-240 msec) E/A Ratio 0.8 MED E' 6.1 (>= 7 cm/sec) E'/MED E' Ratio 12.80 (<= 14) LAT E' 4.0 (>= 10 cm/sec) E/LAT E' Ratio 19.52 (<= 14) Mitral Valve MV E Max Harry. 78.0 (40-130 cm/s) MV A Velocity 96.0 (40-130 cm/s) E/A Ratio 0.81 MV Decel. Time 236 (160-240 ms) Other Information Study Quality: Fair Conclusion This is a limited TTE to evaluate for LV systolic function. Limited windows are obtained. Ultrasound enhancing agent is administered. The left ventricle is severely dilated. There is normal LV wall thickness. There is severe global hypokinesis present. The distal inferoseptal, anterolateral, and apical LV hurley are akinetic. LVEF is 15%. Ultrasound enhancing agent administration demonstrates no evidence of LV thrombus. Electronically signed by : Maddy Alfred MD 10/28/2024 14:18:17
--- OUTSIDE RECORDS SUMMARY | 2024-10-28 11:13 | XMS_ITS | Encounter Summary ---
Author Organization Healthcare Address [address] [place] [address] Care Team Providers Care Patient Safety Officer Name Role Phone Socorro Christian DO Primary Care Provider [phone] Reason for Referral * Consultation (Routine) - Closed Specialty Diagnoses / Procedures Referred By Nora t Referred To Contact Pulmonary Disease / Pulmonology Diagnoses Ground glass opacity present on imaging of lung Socorro Christian, DO [address] [place] [address] Phone: tel: fax: [facility] [address] [place] [address] Phone: tel: fax: Referral ID Status Reason Start Date Expiration Date V isits Requested Visits Authorized [id number] Closed Specialty Services Required 01/26/2024 07/27/2025 1 1 Encounter Details Date Type Department Care Team (Late st Contact Info) Description 01/26/2024 Community Orders Community Practice [address] [place] [address] Socorro Christian, DO [address] [place] [address] Ground glass opacity present on imaging of [...] Primary documented in this encounter Care Teams Patient Safety Officer Relationship Specialty Start Date End Date Socorro Christian DO [address] [place] [address] PCP - General 06/22/20 documented as of this encounter
--- OUTSIDE RECORDS SUMMARY | 2024-10-28 11:13 | XMS_ITS | Clinical Summary ---
Author Organization Healthcare Address [address] [place] [address] Care Team Providers Care Assistant Teacher Name Role Phone Socorro Christian DO Primary Care Provider [phone] Allergies No known active allergies Medications metFORMIN [...] Panlobular emphysema 07/20/2020 Cardiomyopathy 07/19/2020 Pacemaker 07/18/2020 [place] (myocardial infarction) 07/18/2020 Good tolerance for activity 07/18/2020 Antiplatelet or antithrombotic long-term use 09/2020 Warthin's tumor 06/18/2020 Diabetes Hypertension Hyperlipidemia Resolved Problems Problem Noted Date Diagnosed Date Resolved Date Mass of left parotid gland 06/18/2020 0 07/30/2020 Immunizations Immunization Administration Dates Next Due Pneumococcal 20-yudith Conj Vaccine 04/30/2022 Social History Tobacco Use Types Packs/Day Years Used Date Smoking Tobacco: Every Day Cigarettes 1 53.7 Started: 1971 Smokeless Tobacco: Never Tobacco Cessation:Ready [...] 10/01/2000 [facility]-Zoster Vaccines (1 of 2) 10/01/2005 [id number] Vaccine ( season) 2024 01/17/2021, 07/19/2020, 06/21/2020 [facility]-Influenza Vaccine (#1) 2024 [...] complete this topic Insurance MEDICARE Care Teams Assistant Teacher Relationship Specialty Start Date End Date Socorro Christian DO [address] [place] [address] PCP - General 06/22/20
--- OUTSIDE RECORDS SUMMARY | 2024-10-28 11:13 | XMS_ITS | Encounter Summary ---
Author Organization Healthcare Address [address] [place] [address] Care Team Providers Care Education Officer Name Role Phone Socorro Christian DO Primary Care Provider [phone] Encounter Details Date Type Department Care Team ([facility] st Contact Info) Description 01/21/2024 Orders Only External Location [address] [place] [address] Provider, External Social History Tobacco Use Types [...] on filedocumented in this encounter Care Teams Education Officer Relationship Specialty Start Date End Date Socorro Christian DO [address] [place] [address] PCP - General 06/22/20 documented as of this encounter
--- OUTSIDE RECORDS SUMMARY | 2024-10-28 11:13 | XMS_ITS | Encounter Summary ---
Author Organization Healthcare Address [address] [place] [address] Care Team Providers Care House Calls Nurse Name Role Phone Socorro Christian DO Primary Care Provider [phone] Encounter Details Date Type Department Care Team ([facility] st Contact Info) Description 05/20/2022 Orders Only External Location [address] [place] [address] Provider, External Social History Tobacco Use Types [...] on filedocumented in this encounter Care Teams House Calls Nurse Relationship Specialty Start Date End Date Socorro Christian DO [address] [place] [address] PCP - General 06/22/20 documented as of this encounter
[2024-10-28 12:03] LABS: Chloride 104 mmol/L (98-107); Sodium 144 mmol/L (136-145)
[2024-10-28] MEDS: DEFINITY US ECHO CONTRAST 2ML INJ 2 MG IV (12:03)
[2024-10-28 12:04] LABS: Potassium 4.7 mmoL/L (3.5-5.1)
[2024-10-28 12:07] LABS: Anion Gap 15.7 mEq/L (5-15); Blood Urea Nitrogen 16 mg/dl (9-20); Calcium 9.5 mg/dl (8.4-10.2); Carbon Dioxide 29 mmol/L (22.0-30.0); Creatinine,Serum 1.20 mg/dl (0.66-1.25); Estimated Glomerular Filt Rate 60 ml/min (>60); GFR (African American) 73 ML/MIN (>60); Glucose 120 mg/dl (74-100)
== END 2024-10-28 23:59 | disposition home or self-care (01) ==
LOC: RT 11:12
PROVIDERS: Visit Provider Physician Assistant
DX: I11.0 Hypertensive heart disease with heart failure (principal); I50.20 Unspecified systolic (congestive) heart failure; I21.4 Non-ST elevation (NSTEMI) myocardial infarction; I25.5 Ischemic cardiomyopathy; Z95.810 Presence of automatic (implantable) cardiac defibrillator; R93.1 Abnormal findings on diagnostic imaging of heart and coronary circulation
CPT/HCPCS: 36415; 80048; 93308; Q9957

== ENCOUNTER 2024-11-11 09:16 | Inpatient (IN) | payer MEDICARE, SELFPAY ==
[2024-11-11] VITALS (23 sets, daily range): BP systolic 112–176; BP diastolic 60–106; PULSE 60–104; RESP 14–29; TEMP 36.6–37.4; O2SAT 88–98; BMI 20.5
--- NOTE | 2024-11-11 09:18 | XR_ITS ---
FINAL REPORT CLINICAL HISTORY: Dyspnea COMPARISON: 09/21/2024 FINDINGS: The heart is moderately enlarged, larger than seen on the prior exam of 09/21/2024. The mediastinum is normal. A biventricular pacemaker is present. There is mild diffuse pulmonary vascular congestion and diffuse interstitial opacities that likely represent pulmonary edema. There are no pleural effusions. There is no pneumothorax. There is no osseous abnormality. IMPRESSION: Mild diffuse pulmonary vascular congestion and diffuse interstitial opacities, likely represent pulmonary edema. Reviewed, Interpreted and Dictated by Serjio Giles MD Transcribed by Aimee Posey Authenticated and [facility]
--- NOTE | 2024-11-11 09:18 | ECG_ITS ---
APPROVED REPORT Exam: Resting ECG HR:106 bpm ECG Measurements Heart Rate 106 AXES IA 337 P QRSd 190 QRS -71 QT 430 T 104 QTc 492 Conclusion Bizarre wide-complex sinus tachycardia with significant repolarization abnormality No STEMI Electronically signed by : Hemant Aguiar, 11/11/2024 16:10:33
--- NOTE | 2024-11-11 09:25 | PC.NURSE ---
DR GALEANO SPEAKING WITH DR URENA
--- NOTE | 2024-11-11 09:26 | PC.NURSE ---
XR AT BEDSIDE
--- OUTSIDE RECORDS SUMMARY | 2024-11-11 09:28 | XMS_ITS | Encounter Summary ---
Author Organization Healthcare Address [address] [place] [address] Care Team Providers Care Tank Pumper Name Role Phone Socorro Christian DO Primary Care Provider [phone] Encounter Details Date Type Department Care Team ([facility] st Contact Info) Description 05/20/2022 Orders Only External Location [address] [place] [address] Provider, External Social History Tobacco Use Types [...] on filedocumented in this encounter Care Teams Tank Pumper Relationship Specialty Start Date End Date Socorro Christian DO [address] [place] [address] PCP - General 06/22/20 documented as of this encounter
--- OUTSIDE RECORDS SUMMARY | 2024-11-11 09:28 | XMS_ITS | Encounter Summary ---
Author Organization Healthcare Address [address] [place] [address] Care Team Providers Care Informatica Mdm Developer Name Role Phone Socorro Christian DO Primary Care Provider [phone] Reason for Referral * Consultation (Routine) - Closed Specialty Diagnoses / Procedures Referred By Nora t Referred To Contact Pulmonary Disease / Pulmonology Diagnoses Ground glass opacity present on imaging of lung Socorro Christian, DO [address] [place] [address] Phone: tel: fax: [facility] [address] [place] [address] Phone: tel: fax: Referral ID Status Reason Start Date Expiration Date V isits Requested Visits Authorized [id number] Closed Specialty Services Required 01/26/2024 07/27/2025 1 1 Encounter Details Date Type Department Care Team (Late st Contact Info) Description 01/26/2024 Community Orders Community Practice [address] [place] [address] Socorro Christian, DO [address] [place] [address] Ground glass opacity present on imaging of [...] Primary documented in this encounter Care Teams Informatica Mdm Developer Relationship Specialty Start Date End Date Socorro Christian DO [address] [place] [address] PCP - General 06/22/20 documented as of this encounter
--- OUTSIDE RECORDS SUMMARY | 2024-11-11 09:28 | XMS_ITS | Clinical Summary ---
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 Diabetes Hypertension Hyperlipidemia Resolved Problems Problem Noted Date Diagnosed Date Resolved Date Mass of left parotid gland 06/18/2020 0 07/30/2020 Immunizations Immunization Administration Dates Next Due Pneumococcal 20-yudith Conj Vaccine 04/30/2022 Social History Tobacco Use Types Packs/Day Years Used Date Smoking Tobacco: Every Day Cigarettes 1 53.8 Started: 1971 Smokeless Tobacco: Never Tobacco Cessation:Ready [...] 10/01/2000 UKY-Zoster Vaccines (1 of 2) 10/01/2005 [id number] Vaccine ( season) 2024 01/17/2021, 07/19/2020, 06/21/2020 [...] complete this topic Insurance MEDICARE Care Teams Bulk Clerk Relationship Specialty Start Date End Date Socorro Christian DO [address] [place] [address] PCP - General 06/22/20
--- OUTSIDE RECORDS SUMMARY | 2024-11-11 09:28 | XMS_ITS | Encounter Summary ---
Author Organization Healthcare Address [address] [place] [address] Care Team Providers Care Overlock Collar Setter Name Role Phone Socorro Christian DO Primary Care Provider [phone] Encounter Details Date Type Department Care Team ([facility] st Contact Info) Description 01/21/2024 Orders Only External Location [address] [place] [address] Provider, External Social History Tobacco Use Types [...] on filedocumented in this encounter Care Teams Overlock Collar Setter Relationship Specialty Start Date End Date Socorro Christian DO [address] [place] [address] PCP - General 06/22/20 documented as of this encounter
--- NOTE | 2024-11-11 09:30 | PC.NURSE ---
pt placed in gown. pts belongs placed in personal belongings bag. items are as listed. jeans, belt, wallet, shirt, shoes, hat and sunglasses. belongings bag labeled with pt sticker.
[2024-11-11 09:31] LABS: VBG HCO3 21.9 mmol/L (23-30); VBG PCO2 51.9 mmol/L (35-51); VBG PH 7.24 mmol/L (7.31-7.41); VBG PO2 50.0 mmol/L (28-40)
[2024-11-11 09:32] LABS: Hematocrit 45.0 % (42.0-52.0); Hemoglobin 14.5 g/dL (14.1-18.0); Immature Granulocytes % 1.3 %; Mean Corpuscular HGB Conc 32.2 g/dL (31.8-35.4); Mean Corpuscular Hemoglobin 30.5 pg (27.0-31.2); Mean Corpuscular Volume 94.7 fl (80-94); Nucleated Red Blood Cells % 0 %; Platelet Count 382 K/mm3 (142-424); Red Blood Count 4.75 M/mm3 (4.60-6.20); Red Cell Distribution Width-SD 53.6 fL; White Blood Count 16.5 K/mm3 (4.8-10.8)
[2024-11-11 09:33] LABS: Lactate Venous 3.4 mmol/L (0.4-2.0)
[2024-11-11] MEDS: BUMETANIDE 1MG/4ML VIAL 4 MG IV (09:37)
[2024-11-11 09:49] LABS: Albumin Level 4.2 g/dl (3.5-5.0); Chloride 106 mmol/L (98-107); Sodium 140 mmol/L (136-145)
[2024-11-11] MEDS: MILRINONE LACTATE 20 MG in 0.9 % SODIUM CHLORIDE 80 ML 2.72 MG IV (09:49)
[2024-11-11 09:50] LABS: Potassium 4.2 mmoL/L (3.5-5.1)
[2024-11-11 09:52] LABS: Alanine Aminotransferase 126 U/L (12-78); Albumin/Globulin Ratio 1.2 (1.1-1.8); Alkaline Phosphatase 184 U/L (38-126); Anion Gap 14.2 mEq/L (5-15); Aspartate Amino Transferase 126 U/L (17-59); Bilirubin,Total 0.6 mg/dl (0.2-1.3); Blood Urea Nitrogen 18 mg/dl (9-20); Carbon Dioxide 24 mmol/L (22.0-30.0); Creatinine Clearance Estimated 60 mL/min (50-200); Creatinine,Serum 1.20 mg/dl (0.66-1.25); Estimated Glomerular Filt Rate 60 ml/min (>60); GFR (African American) 73 ML/MIN (>60); Globulin 3.6 g/dL (1.3-3.2); Lipase 120 U/L (23-300); Total Protein,Serum 7.8 g/dl (6.3-8.2)
[2024-11-11 09:53] LABS: Calcium 9.1 mg/dl (8.4-10.2); Glucose 192 mg/dl (74-100)
[2024-11-11] MEDS: NITROPRUSSIDE SODIUM 50 MG in DEXTROSE 5 % IN WATER 250 ML 10.97 MG IV (09:58)
[2024-11-11 10:00] LABS: NT Pro Brain Natriuretic Pep. 11100 pg/mL (0-125)
[2024-11-11 10:03] LABS: Troponin I 0.04 ng/ml (0.00-0.034)
--- NOTE | 2024-11-11 10:03 | ECG_ITS ---
APPROVED REPORT Exam: Resting ECG HR:72 bpm ECG Measurements Heart Rate 72 AXES OR 152 P 79 QRSd 223 QRS 182 QT 498 T 90 QTc 523 Conclusion Ventricular paced rhythm Right axis No OR prolongation Wide QRS QTc prolongation No STEMI Electronically signed by : Hemant Aguiar, 11/11/2024 16:11:23
--- NOTE | 2024-11-11 10:26 | PC.NURSE ---
Dr. Miranda at bedside to see patient.
--- NOTE | 2024-11-11 10:26 | PC.NURSE ---
Dr. Aguiar speaking with hospitalist.
--- NOTE | 2024-11-11 10:29 | HMH.EDCP ---
Discharge Plan Disposition Patient Disposition: Admitted Condition: Serious Prescriptions Prescriptions: No Action amiodarone 200 mg tablet 200 mg PO DAILY Qty: 30 5RF aspirin 81 mg tablet,delayed release (DR/EC) 81 mg PO DAILY 30 Days Qty: 30 7RF atorvastatin 80 mg tablet 80 mg PO HS Qty: 30 5RF clopidogrel 75 mg tablet 75 mg PO DAILY Qty: 30 7RF dapagliflozin propanediol [Farxiga] 10 mg tablet 10 mg PO DAILY Qty: 30 2RF sacubitril-valsartan [Entresto] 24-26 mg tablet 1 tab PO BID Qty: 60 5RF metoprolol succinate 25 mg tablet extended release 24 hr 12.5 mg PO BID Qty: 30 6RF metformin 500 mg tablet 500 mg PO BIDWMEAL Patient Comments: TAKE 1 TABLET BY MOUTH TWICE DAILY WITH MORNING MEAL AND WITH EVENING MEAL Referrals Follow up/Referrals: Herbert Villar DO [Primary Care Provider, [facility]] - See instructions Clinical Impressions Clinical Impression: Acute exacerbation of CHF (congestive heart failure), Pulmonary edema cardiac cause Print Language Print Language: Venezuelan Discharge ED Provider: Hemant Aguiar General Chief Complaint: Chest Pain Stated Complaint: SOA Time Seen by Provider: 11/11/24 09:17 Mode of Arrival: Wheelchair Source of Information: Patient Description of Symptoms (Recalled from ER Triage Doc. by RN): patient presents to ED with CP and states his heart does not feel right and it is difficult for him to breathe. Patient's RA O2 sat is 88%. Reports no home O2. Patient rates pain in chest 9/10. He reports he has taken some aspirin this morning. History of Present Illness HPI narrative: This is a 69-year-old male patient, with past medical history of hypertension, hyperlipidemia, diabetes, coronary artery disease status post stents, severe heart failure with reduced ejection fraction of 10%, and biventricular pacemaker with MOTOR REBUILDER-D in place, who is presenting to the emergency department today for evaluation of profound dyspnea. Patient was seen in the cardiology clinic back on 09/19/2024 and was advised to quit taking his Bumex. He has not had his Bumex since that time. He states that this morning he developed a profound sudden onset dyspnea. He has had no fever or infectious symptoms. He is not currently experiencing chest pain but he feels as if he is smothering Related Data Home Medications ?Medication ?Instructions ?Recorded ?Confirmed metformin 500 mg tablet 500 mg PO BIDWMEAL 09/11/24 11/01/24 Previous Rx's ?Medication ?Instructions ?Recorded amiodarone 200 mg tablet 200 mg PO DAILY #30 tabs 11/01/24 aspirin 81 mg tablet,delayed 81 mg PO DAILY 30 days #30 tabs 11/01/24 release atorvastatin 80 mg tablet 80 mg PO HS #30 tabs 11/01/24 clopidogrel 75 mg tablet 75 mg PO DAILY #30 tabs 11/01/24 dapagliflozin propanediol 10 mg 10 mg PO DAILY #30 tabs 11/01/24 tablet (Farxiga) sacubitril 24 mg-valsartan 26 mg 1 tab PO BID #60 tabs 11/01/24 tablet (Entresto) metoprolol succinate 25 mg 12.5 mg (1/2 x 25 mg) PO BID #30 11/07/24 tablet,extended release 24 hr tabs Allergies Allergy/AdvReac Type Severity Reaction Status Date / Time No Known Allergies Allergy Verified 11/01/24 10:34 [facility] Disclaimer: The information contained in this section may have been updated after the patient was seen, as this information can be updated by other users. Medical History Coronary artery disease Warthin's tumor Presence of combination internal cardiac defibrillator (ICD) and pacemaker Warthin's tumor Heart attack HLD (hyperlipidemia) HTN (hypertension) Diabetes Surgical History Cardiac resynchronization therapy defibrillator (MOTOR REBUILDER-D) in place Upgraded to CRTD September 2024 Automatic implantable cardioverter-defibrillator in situ Family History Other Cancer Social History Smoking Status: Current every day smoker tobacco type: cigarettes packs per day: 1 alcohol intake: current substance use type: denies use current occupational status: retired Travel in the last 8 weeks?: None current occupational exposures/hazards: No caffeine: Yes Have you lived/traveled outside [place] in past 30 days?: No Contact w/someone who lives/traveled outside US past 30 days?: No Exposure to someone with infectious disease in past 14 days?: No Do you have a fever (greater than 100.4 F or 38 C)?: No Have you tested positive for COVID-19?: No Exposed to someone with COVID-19 in past 14 days?: No Do you have a sore throat?: No Do you have a cough?: No Do you have any weakness?: No Do you have any diarrhea?: No Are you experiencing any unusual bleeding?: No Do you have any muscle aches/pain?: No Do you have any abdominal pain?: No Are you experiencing loss of taste or smell?: No Other Medical History Have you received the Flu Vaccine for this season: No Have you received the Pneumonia Vaccine: No ROS Obtained: Yes Systems reviewed as appropriate & no additional complaints except as documented Physical Exam General General appearance: other (See MDM) Respiratory Respiratory exam: Present other (See MDM) Cardiovascular Cardiovascular exam: Present other (See MDM) Neurological Exam Neurological exam: Present other (See MDM) HEART Score HEART Score HEART Score assessment performed?: Yes History (anamnesis): Moderately suspicious ECG: Non-specific disturbance Age: >65 years Risk factors: 3 or more risk factors Troponin: 1-3x normal limit HEART Score: 7 Critical Care Critical Care Time Critical Care Time: Yes Attestation: On 11/11/24, the high probability of a clinically significant, sudden or life threatening deterioration of the following system(s) required my full and direct attention, intervention and personal management. The time I documented below is in addition to time spent performing reported procedures but includes the following listed in this critical care notation. Total Time Total Critical Care Time: 43 Medical Decision Making Medical Records Medical records reviewed: Yes I reviewed the patient's medical records. Wilmer Inquiry Pt receiving controlled substance: No Wilmer was queried for this patient: No Vital Signs Vital Signs: 11/11/24 09:30 11/11/24 09:30 11/11/24 10:00 Temperature 99.4 F Temperature Source Axillary Pulse Rate 104 H 74 Pulse Rate [Right Brachial] 102 H Respiratory Rate 24 29 H 24 Blood Pressure 176/103 H 136/89 Blood Pressure [Right Arm] 165/106 H Blood Pressure Mean Blood Pressure Mean [Right Arm] 125 Blood Pressure Source [Right Arm] Automatic Cuff Blood Pressure Position [Right Arm] Supine 02 Sat by Pulse Oximetry 88 L 98 97 Oxygen Delivery Method Room Air Nasal Cannula Oxygen Flow Rate (LPM) 3 11/11/24 10:08 11/11/24 10:15 Temperature Temperature Source Pulse Rate 102 H 71 Pulse Rate [Right Brachial] Respiratory Rate 22 Blood Pressure 132/68 Blood Pressure [Right Arm] Blood Pressure Mean 93 Blood Pressure Mean [Right Arm] Blood Pressure Source [Right Arm] Blood Pressure Position [Right Arm] 02 Sat by Pulse Oximetry 95 Oxygen Delivery Method Nasal Cannula Oxygen Flow Rate (LPM) 3 Lab Data Labs: Lab Results 11/11/24 09:18: VBG pH 7.24 L, VBG pCO2 51.9 H, VBG pO2 50.0 H, VBG HCO3 21.9 L, VBG Total CO2 23.5, VBG O2 Saturation 79.6 H, VBG Base Excess -5.4 L, VBG Lactic Acid 3.4 H 11/11/24 09:20: WBC 16.5 H, RBC 4.75, Hgb 14.5, Hct 45.0, MCV 94.7 H, MCH 30.5, MCHC 32.2, RDW 15.4, Plt Count 382, MPV 10.1, Neut % (Auto) 61.9, Lymph % (Auto) 27.1, [place]ug[place] % (Auto) 6.5, Eos % (Auto) 2.7, Baso % (Auto) 0.5, Neut # (Auto) 10.2 H, Lymph # (Auto) 4.5, Refugio # (Auto) 1.1 H, Eos # (Auto) 0.4, Baso # (Auto) 0.1, Sodium 140, Potassium 4.2, Chloride 106, Carbon Dioxide 24, Anion Gap 14.2, BUN 18, Creatinine 1.20, Estimated Creat Clear 60, Estimated GFR 60, Est GFR ( Amer) 73, Glucose 192 H, Calcium 9.1, Total Bilirubin 0.6, AST 126 H, ALT 126 H, Alkaline Phosphatase 184 H, Troponin I 0.04 H, NT-Pro-B Natriuret Pep 76535 H, Total Protein 7.8, Albumin 4.2, Globulin 3.6 H, Albumin/Globulin Ratio 1.2, Lipase 120 11/11/24 09:20 11/11/24 09:20 Response Orders (Tests/Meds): ED MEDICATIONS Generic Name Dose Route Start Last Admin Trade Name Freq PRN Reason Stop Dose Admin Milrinone Lactate 20 mg/ 100 mls @ 2.722 mls/hr 11/11/24 09:30 11/11/24 09:49 Sodium Chloride IV 12/11/24 09:29 0.125 mcg/kg/min .Q24H SHAHLA 2.72 mls/hr Protocol Administration 0.125 MCG/KG/MIN Sodium Nitroprusside 50 mg/ 252 mls @ 10.973 mls/hr 11/11/24 09:30 11/11/24 10:04 Dextrose IV 12/11/24 09:29 0.3 mcg/kg/min .[id number] SHAHLA 6.58 mls/hr Protocol Titration 0.5 MCG/KG/MIN Discontinued Medications Generic Name Dose Route Start Last Admin Trade Name Freq PRN Reason Stop Dose Admin Bumetanide 4 mg 11/11/24 09:29 11/11/24 09:37 Bumetanide 1mg/4ml Vial IV 11/11/24 09:30 4 mg ONCE ONE Administration ORDERS Category Date Time Status CXR --portable [XR chest portable] Stat Exams 11/11/24 09:18 Taken POCUS Point of Care (ER Only) Stat Exams 11/11/24 09:27 Completed BNP [NT Pro Brain Natriuretic Pep.] Stat Lab 11/11/24 09:20 Completed CBC w/Auto Diff [Complete Blood Count Auto Diff] Stat Lab 11/11/24 09:20 Completed CMP [Comprehensive Metabolic Panel] Stat Lab 11/11/24 09:20 Completed Lipase Stat Lab 11/11/24 09:20 Completed Troponin I Q3H Lab 11/11/24 12:30 Ordered Troponin I Q3H Lab 11/11/24 15:30 Ordered Troponin I Stat Lab 11/11/24 09:20 Completed VBG [Venous Blood Gas] Stat RT 11/11/24 09:18 Completed MDM Narrative Medical Decision Narrative: In summary, this is a 69-year-old male patient who is presenting to the emergency department today for evaluation of profound dyspnea that is relatively sudden onset this morning. Patient's comorbidities include a past medical history of hypertension, hyperlipidemia, diabetes, CAD status post stenting, severe heart failure with reduced ejection fraction of 10%, and current biventricular pacemaker with MOTOR REBUILDER-D in place. This certainly could be exacerbating the patient's symptoms and increases risk of morbidity. On initial evaluation of the patient he was in acute respiratory distress and was saturating in the 80s on room air. He is not on oxygen at baseline. His breath sounds were somewhat reduced bilaterally. He was tachycardic and hypertensive, with a blood pressure of 160s over 100. He was diaphoretic and appeared very ill. Patient was connected to the monitor and pads were placed on his chest. I obtained a quick bedside ultrasound that showed profound pulmonary edema in all lung hyatt with no pleural effusions bilaterally. An EKG was obtained and personally interpreted by me and demonstrated a wide complex sinus rhythm with a definite left axis. No overt signs of ST elevation myocardial infarction. Differential diagnosis included ACS/ND, decompensated heart failure, reactive airway disease, pneumonia, among others. Workup was initiated with a chest x-ray and hematologic labs. Given the complexity of this patient's comorbidities I did discuss this case immediately with Dr. Miranda with the on-call adaptive physical education teacher. He felt that this patient would ultimately benefit from inotrope he and diuresis as well as afterload reduction. We elected to start this patient on a milrinone infusion at 0.125 mcg/kg/min as well as nitroprusside and a 4 mg push of Bumex. Within minutes the patient's blood pressure and heart rate significantly improved and his work of breathing improved as well. At this time we repeated an EKG which was personally interpreted by me and demonstrated a ventricular paced rhythm at a rate of 72 bpm, persistent wide QRS, and QTc prolongation of 523 ms. This EKG appears largely unchanged from prior. Labs were personally interpreted by me and demonstrated a leukocytosis of 16, respiratory acidosis with a pH of 7.24 and pCO2 of 51.9. CMP shows no electrolyte derangements or acute kidney injury. He does have a marked elevation of BNP at 11,000 and initial troponin of 0.04. He also has a transaminitis which is likely secondary to heart failure. This patient's clinical picture is most consistent with a heart failure exacerbation. I have had an interactive discussion with the internal medicine service who has agreed to evaluate the patient the emergency department. After our discussion of their evaluation they have agreed to admit the patient to their service and except primary responsibility of the patient move forward
--- NOTE | 2024-11-11 10:32 | PC.NURSE ---
supervisor painting department contacted for bed.
--- NOTE | 2024-11-11 10:38 | P.HP_ITS ---
<Statement entered by Moises Michael MD - 11/11/24 13:37> Rounded on patient with nurse practitioner. Personally examined and interviewed patient. Agree with exam findings and care plan as documented. History of Present Illness *Admission Date: 11/11/24 *Reason for visit:: shortness of breath *History of present illness: Mr. Da Silva is a 69-year-old male who presented today to the emergency department with chest pain and shortness of breath. He has a primary medical history of HFrEF, BLOOD BANK CALENDAR CONTROL CLERK-D placement, type 2 diabetes, hypertension, cardiomyopathy, pacemaker, hyperlipidemia, and CAD with NEAL. Patient reports that he felt like something was very wrong, chest pain started this morning and it was very difficult for him to breathe. Room air saturation in the emergency department was 88% patient is on room air at baseline. Patient states that he is compliant with all of his cardiac medications and was recently taken off his diuretic (Bumex) by cardiology. Emergency department workup was significant for pulmonary edema and HFrEF exacerbation. The emergency department consulted Dr. Miranda, cardiology, who recommended patient be placed on a milrinone and nitroprusside drips and a one- time Bumex 4 mg dose. Patient responded rather quickly in the emergency department to medications and states his chest pain resolved and he feels much better. [facility] Disclaimer: The information contained in this section may have been updated after the patient was seen, as this information can be updated by other users. Medical History Coronary artery disease Warthin's tumor Presence of combination internal cardiac defibrillator (ICD) and pacemaker Warthin's tumor Heart attack HLD (hyperlipidemia) HTN (hypertension) Diabetes Surgical History Cardiac resynchronization therapy defibrillator (BLOOD BANK CALENDAR CONTROL CLERK-D) in place Upgraded to CRTD September 2024 Automatic implantable cardioverter-defibrillator in situ Family History Other Cancer Social History Smoking Status: Current every day smoker tobacco type: cigarettes packs per day: 1 alcohol intake: current substance use type: denies use current occupational status: retired Travel in the last 8 weeks?: None current occupational exposures/hazards: No caffeine: Yes Have you lived/traveled outside [place] in past 30 days?: No Contact w/someone who lives/traveled outside [place] past 30 days?: No Exposure to someone with infectious disease in past 14 days?: No Do you have a fever (greater than 100.4 F or 38 C)?: No Have you tested positive for COVID-19?: No Exposed to someone with COVID-19 in past 14 days?: No Do you have a sore throat?: No Do you have a cough?: No Do you have any weakness?: No Do you have any diarrhea?: No Are you experiencing any unusual bleeding?: No Do you have any muscle aches/pain?: No Do you have any abdominal pain?: No Are you experiencing loss of taste or smell?: No Other Medical History Have you received the Flu Vaccine for this season: No Have you received the Pneumonia Vaccine: No Review of Systems Review of Systems Review of systems:: pertinent systems reviewed and negative unless documented below *Cardiovascular Cardiovascular: Denies chest pain, Denies dyspnea, Denies edema and Denies rapid heart rate *Respiratory Respiratory: Denies cough and Denies dyspnea *Gastrointestinal Gastrointestinal: Denies abdominal pain *Genitourinary Genitourinary: Denies difficulty urinating Meds Home Medications and Allergies Home Medications ?Medication ?Instructions ?Recorded ?Confirmed ?Type metformin 500 mg tablet 500 mg PO BIDWMEAL 09/11/24 11/11/24 History amiodarone 200 mg tablet 200 mg PO DAILY #30 tabs 11/11/24 Rx aspirin 81 mg tablet,delayed 81 mg PO DAILY 30 days #3 0 tabs 11/01/24 11/11/24 Rx release atorvastatin 80 mg tablet 80 mg PO HS #30 tabs 5 11/11/24 Rx clopidogrel 75 mg tablet 75 mg PO DAILY #30 tabs 10/1111/11/24 Rx dapagliflozin propanediol 10 mg 10 mg PO DAILY #30 tab s 11/01/24 11/11/24 Rx tablet (Farxiga) sacubitril 24 mg-valsartan 26 mg 1 tab PO BID #60 tabs 11/01/24 11/11/24 Rx tablet (Entresto) metoprolol succinate 25 mg 12.5 mg (1/2 x 25 mg) PO BI D #30 11/07/24 11/11/24 Rx tablet,extended release 24 hr tabs New Prescriptions to Start Prescriptions: Allergies Allergy/AdvReac Type Severity Reaction Status Date / Time No Known Allergies Allergy Verified 11/01/24 10:34 Exam Data for Last 24 hours Vital signs and Labs for Last 24 Hours: Temp Pulse Resp BP Pulse Ox O2 Del Method O2 Flow Rate 99.4 F 71 27 H 139/64 96 Nasal Cannula 3 11/11/24 09:30 11/11/24 10:30 11/11/24 10:30 11/11/24 10:30 11/11/24 10:30 11/11/24 10:15 11/11/24 10:15 Laboratory Results - last 24 hr 11/11/24 09:18: VBG pH 7.24 L, VBG pCO2 51.9 H, VBG pO2 50.0 H, VBG HCO3 21.9 L, VBG Total CO2 23.5, VBG O2 Saturation 79.6 H, VBG Base Excess -5.4 L, VBG Lactic Acid 3.4 H 11/11/24 09:20: WBC 16.5 H, RBC 4.75, Hgb 14.5, Hct 45.0, MCV 94.7 H, MCH 30.5, MCHC 32.2, RDW 15.4, Plt Count 382, MPV 10.1, Neut % (Auto) 61.9, Lymph % (Auto) 27.1, Harvey % (Auto) 6.5, Eos % (Auto) 2.7, Baso % (Auto) 0.5, Neut # (Auto) 10.2 H, Lymph # (Auto) 4.5, Harvey # (Auto) 1.1 H, Eos # (Auto) 0.4, Baso # (Auto) 0.1, Sodium 140, Potassium 4.2, Chloride 106, Carbon Dioxide 24, Anion Gap 14.2, BUN 18, Creatinine 1.20, Estimated Creat Clear 60, Estimated GFR 60, Est GFR ( Amer) 73, Glucose 192 H, Calcium 9.1, Total Bilirubin 0.6, AST 126 H, ALT 126 H, Alkaline Phosphatase 184 H, Troponin I 0.04 H, NT-Pro-B Natriuret Pep 48358 H, Total Protein 7.8, Albumin 4.2, Globulin 3.6 H, Albumin/Globulin Ratio 1.2, Lipase 120 I & O for Last 24 hours: Intake & Output 11/08/24 11/09/24 11/10/24 11/11/24 23:59 23:59 23:59 23:59 Intake Total 1.097 / 1.097 Balance 1.097 / 1.097 Weight 72.575 kg Constitutional Constitutional: no acute distress, thin, chronically ill appearing and cooperative *Routine HEENT Exam Head: Present normocephalic Eye: Present EOMI and PERRL ENT: Present mucous membranes moist *Routine Neck Exam Neck: Present supple; Absent lymphadenopathy *Routine Respiratory Exam Respiratory: Present decreased breath sounds and CTA bilaterally; Absent wheezes or crackles *Routine Cardiovascular Exam Cardiovascular: Present RRR, Normal S1 and Normal S2; Absent murmur *Routine Abdominal Exam Abdominal: Present soft and normoactive bowel sounds; Absent tenderness *Routine Rectal Exam Rectal:: deferred *Routine Genitalia Exam Genitalia:: deferred *Routine Extremities Exam Extremities: Present normal capillary refill and extremity cold to touch; Absent cyanosis, clubbing or edema *Routine Skin Exam Skin: Present intact and dry; Absent erythema or rash *Routine Neurological Exam Neurological: Present alert, oriented X3, vision grossly intact, hearing grossly intact and normal speech Routine Psychiatric Exam Psychiatric: Present normal affect Assessment and Plan *Assessment and plan (1) NSTEMI (non-ST elevated myocardial infarction): Problem Comment: Type 2, no plaque rupture; supply-demand mismatch Status: Acute Category: Medical Code(s): I21.4 - Non-ST elevation (NSTEMI) myocardial infarction (2) Cardiac resynchronization therapy defibrillator (BLOOD BANK CALENDAR CONTROL CLERK-D) in place: Problem Comment: Upgraded to CRTD September 2024 Status: Acute Category: Surgical Code(s): Z95.810 - Presence of automatic (implantable) cardiac defibrillator (3) Acute exacerbation of CHF (congestive heart failure): Status: Acute Qualifiers: Heart failure type: systolic Qualified Code(s): I50.23 - Acute on chronic systolic (congestive) heart failure Category: Medical Code(s): I50.9 - Heart failure, unspecified (4) HTN (hypertension): Status: Acute Qualifiers: Hypertension type: primary hypertension Qualified Code(s): I10 - Essential (primary) hypertension Category: Medical Code(s): I10 - Essential (primary) hypertension (5) Diabetes: Status: Chronic Category: Medical Code(s): E11.9 - Type 2 diabetes mellitus without complications (6) CAD (coronary artery disease): Status: Acute Category: Medical Code(s): I25.10 - Atherosclerotic heart disease of [place] coronary artery without angina pectoris (7) Automatic implantable cardioverter-defibrillator in situ: Status: Acute Category: Surgical Code(s): Z95.810 - Presence of automatic (implantable) cardiac defibrillator Plan Mr. Da Silva is a 69-year-old male who presented to the emergency department with chest pain and shortness of breath. He has a primary medical history of HFrEF, BLOOD BANK CALENDAR CONTROL CLERK-D placement, type 2 diabetes, hypertension, cardiomyopathy, pacemaker, hyperlipidemia, and CAD with NEAL. Patient reports that he felt like something was wrong, chest pain started this morning and it was very difficult for him to breathe. Room air saturation in the emergency department was 88% patient is on room air at baseline, patient placed on 3 L nasal cannula and O2 saturation improved to the high 90s. Patient states that he is compliant with all of his cardiac medications and was recently taken off his diuretic (Bumex) by cardiology. Emergency department workup was significant for pulmonary edema, hypertension, and HFrEF exacerbation. The emergency department consulted Dr. Miranda, cardiology, who recommended patient be placed on a milrinone and nitroprusside drips and a one-time Bumex 4 mg dose. Patient responded rather quickly in the emergency department to medications and states his chest pain resolved and he feels much better. Continued workup in the emergency department significant for BNP of 11,000, elevated troponin of 0.04, leukocytosis of 16.5, lactic of 3.4, and elevated LFTs AST 126, ALT 126. The ER physician consulted hospital medicine for admission, I agreed to admit the patient for further care. Patient placed in ICU level monitoring, plan of c are as follows: #HFrEF exacerbation #NSTEMI, type II #Elevated BNP ?Patient has known heart failure with reduced EF, last echo in September 2024 showed EF of approximately 10% with severe biatrial dilation. Personal interpretation of patient's chest x-ray shows moderate pulmonary edema and vascular overload. ? Patient doing extremely well on milrinone and nitroprusside drips. Denies any chest pain or shortness of breath at this time. Assessment reveals lungs diminished but clear, no peripheral edema noted. Patient has diuresed approximately 1 L since arriving to the hospital. Will monitor response to Bumex 4 mg and administer diuretics accordingly. Blood pressure currently stable 130s over 60s. Patient O2 remained to 2 L nasal cannula, continue to wean to keep O2 saturation greater than 90%. ?Cardiology consulted for further recommendations, will continue patient's cardiac medications Entresto 1 tab twice daily, Farxiga 10 mg daily, Plavix 75 mg daily, atorvastatin 80 mg at bedtime, aspirin 81 mg daily, amiodarone 200 mg daily. Holding metoprolol daily. ?No electrolyte abnormalities noted, kidney function at patient baseline, creatinine 1.20. Glucose slightly elevated 192. CMP ordered for the a.m. Troponin initially elevated at 0.04, continue to trend. Patient currently denies chest pain. ?CMP and magnesium ordered for the a.m. #Leukocytosis ? Patient WBC elevated to 16.5, likely reactive. Continuing to monitor. Repeat CBC in the a.m. ordered. #CAD #Pacemaker/defibrillator in place ?Patient was recently admitted to the hospital in early September 2024, he underwe nt an [facility] and had 1 stent placed to his RCA. The LAD is chronically occluded proximally and has a scarred akinetic myocardium. Patient currently on GDMT, tolerating well. ?Patient has BLOOD BANK [employer]ENDAR CONTROL CLERK-D and pacemaker in place. Currently in a paced rhythm, appears to be baseline. Continuous cardiac telemetry in place. #Tobacco use disorder ? Nicotine patches ordered as needed, patient states he smokes 2 to 3 cigarettes/day. Patient does endorse smoking marijuana. Smoking cessation discussed. #Diabetes mellitus, type II ? SSI, ACHS fingersticks. DM appears to be well-controlled, A1c 09/2024 6.3%. Holding metformin. Full code Diabetic diet Bedrest VTE?Lovenox
--- NOTE | 2024-11-11 11:16 | PC.NURSE ---
patient arrived to the ICU via stretcher @1116 with RN to room 264
[2024-11-11] MEDS: humaLOG 100 UNITS/ML 10ML VIAL (SSI) SUBCUT (11:45)
--- NOTE | 2024-11-11 12:05 | [facility].PHAINT1 ---
Pharmacy Intervention Comments: home medication list verified using list from outpatient pharmacy and pt interview
[2024-11-11 13:11] LABS: Troponin I 0.08 ng/ml (0.00-0.034)
[2024-11-11 13:34] LABS: Reflex Lactic Add Lactic Reflex
[2024-11-11] MEDS: ACETAMINOPHEN 325MG TAB 650 MG PO (14:25)
[2024-11-11 15:49] LABS: Lactic Acid Follow Up (RFLX 1) 1.4 mmol/L (0.7-2.1)
[2024-11-11 16:04] LABS: Troponin I 0.09 ng/ml (0.00-0.034)
[2024-11-11 16:36] LABS: POC Glucose,Bedside 99 gm/dL (70-110)
[2024-11-11] MEDS: ATORVASTATIN 40MG TABLET 80 MG PO (20:11)
[2024-11-11 20:18] LABS: POC Glucose,Bedside 121 gm/dL (70-110)
[2024-11-12] VITALS (25 sets, daily range): BP systolic 91–137; BP diastolic 45–96; PULSE 59–63; RESP 12–24; TEMP 36.4–36.7; O2SAT 92–97
[2024-11-12 06:24] LABS: POC Glucose,Bedside 117 gm/dL (70-110)
[2024-11-12 06:52] LABS: Hematocrit 38.7 % (42.0-52.0); Hemoglobin 13.1 g/dL (14.1-18.0); Immature Granulocytes % 0.8 %; Mean Corpuscular HGB Conc 33.9 g/dL (31.8-35.4); Mean Corpuscular Hemoglobin 30.5 pg (27.0-31.2); Mean Corpuscular Volume 90.2 fl (80-94); Nucleated Red Blood Cells % 0 %; Platelet Count 258 K/mm3 (142-424); Red Blood Count 4.29 M/mm3 (4.60-6.20); Red Cell Distribution Width-SD 49.1 fL; White Blood Count 8.4 K/mm3 (4.8-10.8)
[2024-11-12 07:10] LABS: Chloride 101 mmol/L (98-107)
[2024-11-12 07:11] LABS: Albumin Level 3.5 g/dl (3.5-5.0); Potassium 3.5 mmoL/L (3.5-5.1); Sodium 135 mmol/L (136-145)
[2024-11-12 07:13] LABS: Blood Urea Nitrogen 24 mg/dl (9-20); Creatinine Clearance Estimated 67 mL/min (50-200); Creatinine,Serum 1.10 mg/dl (0.66-1.25); Estimated Glomerular Filt Rate 66 ml/min (>60); GFR (African American) 80 ML/MIN (>60)
[2024-11-12 07:14] LABS: Alanine Aminotransferase 106 U/L (12-78); Albumin/Globulin Ratio 1.1 (1.1-1.8); Alkaline Phosphatase 161 U/L (38-126); Anion Gap 9.5 mEq/L (5-15); Aspartate Amino Transferase 63 U/L (17-59); Bilirubin,Total 0.9 mg/dl (0.2-1.3); Calcium 8.8 mg/dl (8.4-10.2); Carbon Dioxide 28 mmol/L (22.0-30.0); Globulin 3.1 g/dL (1.3-3.2); Glucose 125 mg/dl (74-100); Magnesium 1.5 mg/dl (1.6-2.3); Total Protein,Serum 6.6 g/dl (6.3-8.2)
--- NOTE | 2024-11-12 08:09 | EXP.ACUTE.PN ---
Subjective *Date: 11/12/24 *Time: 12:31 Interval history: States he is feeling much better today. Stable on room air since yesterday afternoon. Blood pressure well-controlled. Will discontinue milrinone drip today. No nausea or vomiting. No abdominal pain. Medical Exam Vital signs and Labs for Last 24 Hours: Vital Signs Temp Pulse Pulse Resp BP BP Pulse Ox 11/12/24 08:00 97.6 F 63 16 95 11/12/24 08:00 131/74 11/12/24 07:32 97.6 F 11/12/24 07:31 121/58 L 11/12/24 07:31 63 12 93 L 11/12/24 07:17 11/12/24 06:35 11/12/24 06:00 61 19 127/60 94 L 11/12/24 05:00 60 20 123/56 L 95 11/12/24 05:00 11/12/24 04:00 60 11/12/24 04:00 60 20 125/70 94 L 11/12/24 04:00 11/12/24 03:00 60 22 105/55 L 94 L 11/12/24 03:00 11/12/24 02:00 60 22 99/45 L 93 L 11/12/24 01:00 59 L 22 130/60 95 11/12/24 01:00 11/12/24 00:00 97.8 F 60 106/51 L 92 L 11/12/24 00:00 60 92 L 11/12/24 00:00 60 11/12/24 00:00 11/11/24 23:00 11/11/24 23:00 62 24 125/60 95 11/11/24 23:00 62 95 11/11/24 22:01 64 20 94 L 11/11/24 22:01 64 20 126/70 94 L 11/11/24 21:00 60 24 122/66 94 L 11/11/24 20:38 11/11/24 20:00 98.0 F 61 19 116/68 95 11/11/24 20:00 63 11/11/24 19:39 11/11/24 19:00 118/64 11/11/24 19:00 61 23 94 L 11/11/24 18:35 11/11/24 18:01 119/64 11/11/24 18:01 65 16 93 L 11/11/24 17:00 123/70 11/11/24 17:00 63 22 94 L 11/11/24 17:00 11/11/24 16:00 114/62 11/11/24 16:00 63 18 92 L 11/11/24 16:00 63 11/11/24 15:59 11/11/24 15:00 64 26 H 94 L 11/11/24 15:00 116/66 11/11/24 15:00 11/11/24 14:00 63 21 112/67 96 11/11/24 13:30 70 17 95 11/11/24 13:30 121/67 11/11/24 13:00 66 19 97 11/11/24 13:00 130/66 11/11/24 13:00 11/11/24 12:30 67 14 96 11/11/24 12:30 114/61 11/11/24 12:00 64 20 130/69 97 11/11/24 11:31 97.8 F 68 18 138/67 97 11/11/24 11:26 64 11/11/24 11:23 11/11/24 11:00 67 22 144/67 H 97 11/11/24 10:57 99.0 F 65 24 139/64 11/11/24 10:30 71 27 H 139/64 96 11/11/24 10:15 71 22 132/68 95 11/11/24 10:08 102 H 11/11/24 10:00 74 24 136/89 97 11/11/24 09:30 104 H 29 H 176/103 H 98 11/11/24 09:30 99.4 F 102 H 24 165/106 H 88 L O2 Del Method O2 Flow Rate 11/12/24 08:00 Room Air 11/12/24 08:00 11/12/24 07:32 11/12/24 07:31 11/12/24 07:31 Room Air 11/12/24 07:17 Room Air 11/12/24 06:35 Room Air 11/12/24 06:00 Room Air 11/12/24 05:00 Room Air 11/12/24 05:00 Room Air 11/12/24 04:00 11/12/24 04:00 Room Air 11/12/24 04:00 Room Air 11/12/24 03:00 Room Air 11/12/24 03:00 Room Air 11/12/24 02:00 Room Air 11/12/24 01:00 Room Air 11/12/24 01:00 Room Air 11/12/24 00:00 Room Air 11/12/24 00:00 11/12/24 00:00 11/12/24 00:00 Room Air 11/11/24 23:00 Room Air 11/11/24 23:00 Room Air 11/11/24 23:00 11/11/24 22:01 11/11/24 22:01 Room Air 11/11/24 21:00 Room Air 11/11/24 20:38 Room Air 11/11/24 20:00 Room Air 11/11/24 20:00 11/11/24 19:39 Room Air 11/11/24 19:00 11/11/24 19:00 Room Air 11/11/24 18:35 Room Air 11/11/24 18:01 11/11/24 18:01 Room Air 11/11/24 17:00 11/11/24 17:00 Room Air 11/11/24 17:00 Room Air 11/11/24 16:00 11/11/24 16:00 Room Air 11/11/24 16:00 11/11/24 15:59 Room Air 11/11/24 15:00 Room Air 11/11/24 15:00 11/11/24 15:00 Room Air 11/11/24 14:00 Room Air 11/11/24 13:30 Room Air 11/11/24 13:30 11/11/24 13:00 Room Air 11/11/24 13:00 11/11/24 13:00 Room Air 11/11/24 12:30 Nasal Cannula 2 11/11/24 12:30 11/11/24 12:00 Nasal Cannula 2 11/11/24 11:31 Nasal Cannula 2 11/11/24 11:26 11/11/24 11:23 Room Air 11/11/24 11:00 Nasal Cannula 2 11/11/24 10:57 Nasal Cannula 3 11/11/24 10:30 11/11/24 10:15 Nasal Cannula 3 11/11/24 10:08 11/11/24 10:00 11/11/24 09:30 Nasal Cannula 3 11/11/24 09:30 Room Air Intake and Output 11/11/24 11/12/24 11/12/24 23:59 07:59 15:59 Intake Total 225 / 722.108 408 / 468.384 60.384 / 468.384 Output Total 550 / 4100 500 / 500 Balance -325 / -3377.892 -92 / -31.616 60.384 / -31.616 Intake: Intake, Oral Amount 225 / 705 354 / 354 Intake, Total IV Amount 54 / 114.384 60.384 / 114.384 Milrinone Lactate 20 mg In 0.9 54 / 114.384 60.384 / 114.384 % Sodium Chloride 80 ml @ 0.125 MCG/KG/MIN 2.722 mls/hr IV . Q24H [facility] Rx#:[id number] Output: Output, Urine Amount 550 / 4100 500 / 500 Other: Number of Unmeasured Voids 0 Weight 74.4 kg Patient Weight 11/12/24 23:59 Weight 74.4 kg Laboratory Results - last 24 hr 11/11/24 09:18: VBG pH 7.24 L, VBG pCO2 51.9 H, VBG pO2 50.0 H, VBG HCO3 21.9 L, VBG Total CO2 23.5, VBG O2 Saturation 79.6 H, VBG Base Excess -5.4 L, VBG Lactic Acid 3.4 H 11/11/24 09:20: WBC 16.5 H, RBC 4.75, Hgb 14.5, Hct 45.0, MCV 94.7 H, MCH 30.5, MCHC 32.2, RDW 15.4, Plt Count 382, MPV 10.1, Neut % (Auto) 61.9, Lymph % (Auto) 27.1, [facility] % (Auto) 6.5, Eos % (Auto) 2.7, Baso % (Auto) 0.5, Neut # (Auto) 10.2 H, Lymph # (Auto) 4.5, [facility] # (Auto) 1.1 H, Eos # (Auto) 0.4, Baso # (Auto) 0.1, Sodium 140, Potassium 4.2, Chloride 106, Carbon Dioxide 24, Anion Gap 14.2, BUN 18, Creatinine 1.20, Estimated Creat Clear 60, Estimated GFR 60, Est GFR ( Am) 73, Glucose 192 H, Calcium 9.1, Total Bilirubin 0.6, AST 126 H, ALT 126 H, Alkaline Phosphatase 184 H, Troponin I 0.04 H, NT-Pro-B Natriuret Pep 21029 H, Total Protein 7.8, Albumin 4.2, Globulin 3.6 H, Albumin/Globulin Ratio 1.2, Lipase 120 11/11/24 12:36: Troponin I 0.08 H 11/11/24 15:15: Lactate 1.4, Troponin I 0.09 H 11/11/24 16:28: POC Glucose 99 11/11/24 20:10: POC Glucose 121 H 11/12/24 06:15: POC Glucose 117 H 11/12/24 06:40: WBC 8.4 D, RBC 4.29 L, Hgb 13.1 L, Hct 38.7 L, MCV 90.2, MCH 30.5, MCHC 33.9, RDW 14.8, Plt Count 258 D, MPV 9.7, Neut % (Auto) 72.4, Lymph % (Auto) 17.5, [facility] % (Auto) 6.9, Eos % (Auto) 1.9, Baso % (Auto) 0.5, Neut # (Auto) 6.0, Lymph # (Auto) 1.5, [facility] # (Auto) 0.6, Eos # (Auto) 0.2, Baso # (Auto) 0.0, Sodium 135 L, Potassium 3.5, Chloride 101, Carbon Dioxide 28, Anion Gap 9.5, BUN 24 H D, Creatinine 1.10, Estimated Creat Clear 67, Estimated GFR 66, Est GFR ( Amer) 80, Glucose 125 H D, Calcium 8.8, Magnesium 1.5 L, Total Bilirubin 0.9, AST 63 H D, ALT 106 H, Alkaline Phosphatase 161 H, Total Protein 6.6, Albumin 3.5 D, Globulin 3.1, Albumin/Globulin Ratio 1.1 I & O for Labs for Last 24 Hours: Intake & Output 11/09/24 11/10/24 11/11/24 11/12/24 23:59 23:59 23:59 23:59 Intake Total 722.108 / 722.108 468.384 / 468.384 Output Total 4100 / 4100 500 / 500 Balance -3377.892 / -3377.892 -31.616 / -31.616 Weight 76.3 kg 74.4 kg Constitutional: Present no acute distress, thin, chronically ill appearing and cooperative Head: Present atraumatic and normocephalic ENT: Present normal exam Respiratory: Present normal respiratory effort; Absent rhonchi, wheezes or crackles Cardiac: Present Reg Rate and Rhythm Comment:: Paced rhythm; pacer left chest GI: Present soft and normal bowel sounds; Absent distention or tenderness Extremities: Present normal inspection and full ROM; Absent edema Comment:: Thin extremities. Skin: Present intact; Absent erythema Neuro: Present Grossly Intact, alert, awake, oriented x 3 and moves all extremities Assessment and Plan *Assessment and plan (1) NSTEMI (non-ST elevated myocardial infarction): Problem Comment: Type 2, no plaque rupture; supply-demand mismatch Status: Acute Category: Medical Code(s): I21.4 - Non-ST elevation (NSTEMI) myocardial infarction (2) Cardiac resynchronization therapy defibrillator (GRADES 1 THRU 6 VISITING TEACHER-D) in place: Problem Comment: Upgraded to CRTD September 2024 Status: Acute Category: Surgical Code(s): Z95.810 - Presence of automatic (implantable) cardiac defibrillator (3) Acute exacerbation of CHF (congestive heart failure): Status: Acute Qualifiers: Heart failure type: systolic Qualified Code(s): I50.23 - Acute on chronic systolic (congestive) heart failure Category: Medical Code(s): I50.9 - Heart failure, unspecified (4) HTN (hypertension): Status: Acute Qualifiers: Hypertension type: primary hypertension Qualified Code(s): I10 - Essential (primary) hypertension Category: Medical Code(s): I10 - Essential (primary) hypertension (5) Diabetes: Status: Chronic Category: Medical Code(s): E11.9 - Type 2 diabetes mellitus without complications (6) CAD (coronary artery disease): Status: Acute Category: Medical Code(s): I25.10 - Atherosclerotic heart disease of [place] coronary artery without angina pectoris (7) Automatic implantable cardioverter-defibrillator in situ: Status: Acute Category: Surgical Code(s): Z95.810 - Presence of automatic (implantable) cardiac defibrillator Plan Mr. Da Silva is a 69-year-old male who presented to the emergency department with chest pain and shortness of breath. 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 Patient reports that he felt like something was wrong, chest pain started this morning and it was very difficult for him to breathe. Room air saturation in the emergency department was 88% patient is on room air at baseline, patient placed on 3 L nasal cannula and O2 saturation improved to the high 90s. Patient states that he is compliant with all of his cardiac medications and was recently taken off his diuretic (Bumex) by cardiology. Emergency department workup was significant for pulmonary edema, hypertension, and HFrEF exacerbation. The emergency department consulted Dr. Miranda, cardiology, who recommended patient be placed on a milrinone and nitroprusside drips and a one-time Bumex 4 mg dose. Patient responded rather quickly in the emergency department to medications and states his chest pain resolved and he feels much better. Continued workup in the emergency department significant for BNP of 11,000, elevated troponin of 0.04, leukocytosis of 16.5, lactic of 3.4, and elevated LFTs AST 126, ALT 126. The ER physician consulted hospital medicine for admission, I agreed to admit the patient for further care. Patient is off nitroprusside and milrinone as of this morning. De-escalate to stepdown level of care. Continues to require inpatient management. Problems addressed as follows: #HFrEF exacerbation #NSTEMI, type II #Elevated BNP ?Patient has known heart failure with reduced EF, last echo in September 2024 showed EF of approximately 10% with severe biatrial dilation. Personal interpretation of patient's chest x-ray shows moderate pulmonary edema and vascular overload. ?Did well with diuresis yesterday, -3.5 L. Off nitroprusside since yesterday early afternoon. Blood pressures stable. Does not appear in shock state. Will discontinue milrinone. - If does well off milrinone for at least 3 hours this morning, will administer 1 dose of Bumex IV 1 mg for continued diuresis and fluid management - Continuing amiodarone 200 mg daily, aspirin 81 mg daily, Lipitor 80 mg nightly, Plavix 75 mg daily, dapagliflozin 10 mg daily - No oxygen requirement today, goal sats greater 90% ?Consider resuming Entresto this evening if does well off milrinone for the day. - Holding metoprolol - BUN 24, creatinine 1.1, potassium 3.5 magnesium 1.5, replace per protocol. -Repeat CMP, magnesium ordered for the morning. -Had elevation of liver enzymes on arrival yesterday, improving today with AST 63, ALT 106, alk phos 161. Suspect component of congestive hepatopathy. #Leukocytosis white count normalized today at 8.4, suspect elevated yesterday from de-marginalization/reactive. CBC holiday in the morning. #CAD #Pacemaker/defibrillator in place ?Patient was recently admitted to the hospital in early September 2024, he underwent an LHC and had 1 stent placed to his RCA. The LAD is chronically occluded proximally and has a scarred akinetic myocardium. Patient currently on GDMT, tolerating well. ?Patient has GRADES 1 THRU 6 VISITING TEACHER-D and pacemaker in place. Currently in a paced rhythm, appears to be baseline. Continuous cardiac telemetry in place. #Tobacco use disorder: Nicotine patches ordered as needed, patient states he smokes 2 to 3 cigarettes/day. Patient does endorse smoking marijuana. Smoking cessation discussed. #Diabetes mellitus, type II: SSI, ACHS fingersticks. DM appears to be well-controlled, A1c 09/2024 6.3%. Holding metformin. Glucose 125 this morning Full code Diabetic diet Bedrest VTE?Lovenox
[2024-11-12] MEDS: CLOPIDOGREL 75MG TAB 75 MG PO (08:44)
[2024-11-12] MEDS: MAGNESIUM SULFATE IN WATER 2 GM/50 ML PIGGYBACK IV ×2 (08:44→09:38)
[2024-11-12] MEDS: ASPIRIN EC 81MG TABLET 81 MG PO (08:44)
[2024-11-12] MEDS: DAPAGLIFLOZIN PROPANEDIOL 10 MG TABLET PO (08:44)
[2024-11-12] MEDS: AMIODARONE 200MG TABLET 200 MG PO (08:44)
[2024-11-12] MEDS: POTASSIUM CHLORIDE 20MEQ TAB 40 MEQ PO ×2 (08:45→12:57)
[2024-11-12 10:59] LABS: POC Glucose,Bedside 140 gm/dL (70-110)
[2024-11-12] MEDS: BUMETANIDE 1MG/4ML VIAL 1 MG IV (11:02)
[2024-11-12 16:14] LABS: POC Glucose,Bedside 130 gm/dL (70-110)
[2024-11-12] MEDS: SACUBITRIL/VALSARTAN 24-26MG TABLET 1 EACH PO (20:36)
[2024-11-12 20:49] LABS: POC Glucose,Bedside 121 gm/dL (70-110)
[2024-11-13] VITALS (12 sets, daily range): BP systolic 98–132; BP diastolic 56–82; PULSE 60–70; RESP 17–23; TEMP 36.4–36.6; O2SAT 94–96; BMI 19.6
[2024-11-13 06:12] LABS: POC Glucose,Bedside 142 gm/dL (70-110)
[2024-11-13 06:52] LABS: Albumin Level 4.1 g/dl (3.5-5.0); Chloride 104 mmol/L (98-107); Sodium 136 mmol/L (136-145)
[2024-11-13 06:53] LABS: Potassium 4.3 mmoL/L (3.5-5.1)
[2024-11-13 06:55] LABS: Alanine Aminotransferase 101 U/L (12-78); Albumin/Globulin Ratio 1.2 (1.1-1.8); Alkaline Phosphatase 166 U/L (38-126); Anion Gap 15.3 mEq/L (5-15); Aspartate Amino Transferase 52 U/L (17-59); Bilirubin,Total 0.9 mg/dl (0.2-1.3); Calcium 9.3 mg/dl (8.4-10.2); Carbon Dioxide 21 mmol/L (22.0-30.0); Globulin 3.4 g/dL (1.3-3.2); Glucose 126 mg/dl (74-100); Total Protein,Serum 7.5 g/dl (6.3-8.2)
[2024-11-13 06:56] LABS: Magnesium 2.0 mg/dl (1.6-2.3)
[2024-11-13] MEDS: AMIODARONE 200MG TABLET 200 MG PO (08:32)
[2024-11-13] MEDS: DAPAGLIFLOZIN PROPANEDIOL 10 MG TABLET PO (08:32)
[2024-11-13] MEDS: ASPIRIN EC 81MG TABLET 81 MG PO (08:32)
[2024-11-13] MEDS: CLOPIDOGREL 75MG TAB 75 MG PO (08:32)
[2024-11-13] MEDS: SACUBITRIL/VALSARTAN 24-26MG TABLET 1 EACH PO (08:33)
--- NOTE | 2024-11-13 08:37 | EXP.DC.SUM ---
General Admission date:: 11/11/24 Discharge date: 11/13/24 HPI HPI HPI: Mr. Da Silva is a 69-year-old male who presented today to the emergency department with chest pain and shortness of breath. 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 Patient reports that he felt like something was very wrong, chest pain started this morning and it was very difficult for him to breathe. Room air saturation in the emergency department was 88% patient is on room air at baseline. Patient states that he is compliant with all of his cardiac medications and was recently taken off his diuretic (Bumex) by cardiology. Emergency department workup was significant for pulmonary edema and HFrEF exacerbation. The emergency department consulted Dr. Miranda, cardiology, who recommended patient be placed on a milrinone and nitroprusside drips and a one-time Bumex 4 mg dose. Patient responded rather quickly in the emergency department to medications and states his chest pain resolved and he feels much better. Hospital Course Hospital Course Hospital Course: Mr. Da Silva is a 69-year-old male who presented to the emergency department with chest pain and shortness of breath. 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 Patient reports that he felt like something was wrong, chest pain started this morning and it was very difficult for him to breathe. Room air saturation in the emergency department was 88% patient is on room air at baseline, patient placed on 3 L nasal cannula and O2 saturation improved to the high 90s. Patient states that he is compliant with all of his cardiac medications and was recently taken off his diuretic (Bumex) by cardiology. Emergency department workup was significant for pulmonary edema, hypertension, and HFrEF exacerbation. The emergency department consulted Dr. Miranda, cardiology, who recommended patient be placed on a milrinone and nitroprusside drips and a one-time Bumex 4 mg dose. Patient responded rather quickly in the emergency department to medications and states his chest pain resolved and he feels much better. Continued workup in the emergency department significant for BNP of 11,000, elevated troponin of 0.04, leukocytosis of 16.5, lactic of 3.4, and elevated LFTs AST 126, ALT 126. The ER physician consulted hospital medicine for admission, I agreed to admit the patient for further care. Patient is off nitroprusside and milrinone as of this morning. De-escalate to stepdown level of care. Continues to require inpatient management. Problems addressed as follows: #HFrEF exacerbation #NSTEMI, type II #Elevated BNP ?Patient has known heart failure with reduced EF, last echo in September 2024 showed EF of approximately 10% with severe biatrial dilation. Personal interpretation of patient's chest x-ray shows moderate pulmonary edema and vascular overload. Was initiated on diuretics. Received Lasix once in the ED with good response. Received second dose after arriving to ICU as he was requiring BiPAP initially due to volume overload. Diuresed total of more than 6 L during admission. Able to wean to room air within the first 24 hours of admission. Overall doing well. Initially was on milrinone as well due to his significant heart failure. Previous echoes show EF less than 20%. Given his clinical stability, milrinone was discontinued. Patient did well off milrinone for over 24 hours with no signs of cardiogenic shock. Resumed home medications and initiated diuretic regimen to go home with. Recommend follow-up with cardiology in the next week. - Continuing amiodarone 200 mg daily, aspirin 81 mg daily, Lipitor 80 mg nightly, Plavix 75 mg daily, dapagliflozin 10 mg daily. Resumed Entresto, tolerated well. Holding metoprolol at this time until follows up with cardiology. Initiate Bumex 1 mg p.o. every other day to maintain euvolemic status. -Had elevation of liver enzymes on arrival yesterday, improving today with AST 63, ALT 106, alk phos 161. Suspect component of congestive hepatopathy. #Leukocytosis white count normalized by second day of admission. Suspect elevated yesterday from de-marginalization/reactive. No indication for antibiotics #CAD #Pacemaker/defibrillator in place ?Patient was recently admitted to the hospital in early September 2024, he underwent an LHC and had 1 stent placed to his RCA. The LAD is chronically occluded proximally and has a scarred akinetic myocardium. Patient currently on GDMT, tolerating well. Patient has MALT SPECIFICATIONS CONTROL ASSISTANT-D and pacemaker in place. Currently in a paced rhythm, appears to be baseline. Continuous cardiac telemetry during admission. #Tobacco use disorder: Nicotine patches ordered as needed, patient states he smokes 2 to 3 cigarettes/day. Patient does endorse smoking marijuana. Smoking cessation discussed. #Diabetes mellitus, type II: SSI, ACHS fingersticks. DM appears to be well-controlled, A1c 09/2024 6.3%. Held metformin during admission. Resume at discharge. Glucose stable during admission Total time spent on discharge 32 minutes in counseling, documentation, chart review, and direct care with patient. Exam Data for Last 24 hours Vital signs and Labs for Last 24 Hours: Temp Pulse Resp BP Pulse Ox O2 Del Method O2 Flow Rate 97.5 F L 63 17 132/72 96 Room Air 2 11/13/24 04:01 11/13/24 08:00 11/13/24 07:15 11/13/24 07:15 11/13/24 07:32 11/13/24 07:52 11/11/24 12:30 Laboratory Results - last 24 hr 11/12/24 10:49: POC Glucose 140 H 11/12/24 16:05: POC Glucose 130 H 11/12/24 20:26: POC Glucose 121 H 11/13/24 06:05: POC Glucose 142 H 11/13/24 06:13: Sodium 136, Potassium 4.3 D, Chloride 104, Carbon Dioxide 21 L, Anion Gap 15.3 H, Glucose 126 H, Calcium 9.3, Magnesium 2.0 D, Total Bilirubin 0.9, AST 52, ALT 101 H, Alkaline Phosphatase 166 H, Total Protein 7.5, Albumin 4.1 D, Globulin 3.4 H, Albumin/Globulin Ratio 1.2 I & O for Last 24 hours: Intake & Output 11/10/24 11/11/24 11/12/24 11/13/24 23:59 23:59 23:59 23:59 Intake Total 722.108 / 722.108 568.384 / 568.384 480 / 480 Output Total 4100 / 4100 3245 / 3645 800 / 800 Balance -3377.892 / -3377.892 -2676.616 / -3076.616 -320 / -320 Weight 76.3 kg 74.4 kg 73.1 kg Microbiology Reports for the Last 24 Hours: Microbiology 11/11/24 12:09 Anus CRE Surveillance Culture - Final Constitutional Constitutional: no acute distress, thin, chronically ill appearing and cooperative *Routine HEENT Exam Head: Present normocephalic Eye: Present EOMI and PERRL ENT: Present mucous membranes moist *Routine Neck Exam Neck: Present supple; Absent lymphadenopathy Routine Chest/Breast/Axilla Exam Chest wall: Present pacemaker *Routine Respiratory Exam Respiratory: Present CTA bilaterally; Absent respiratory distress, rhonchi, stridor, wheezes or crackles *Routine Cardiovascular Exam Cardiovascular: Present RRR *Routine Abdominal Exam Abdominal: Present soft and normoactive bowel sounds; Absent tenderness, distended or rebound *Routine Rectal Exam Patient deferred: visual exam *Routine Exam Patient deferred: penile exam *Routine Extremities Exam Extremities: Absent cyanosis, clubbing or edema *Routine Skin Exam Skin: Present intact and warm; Absent wounds or rash *Routine Neurological Exam Neurological: Present alert, oriented X3 and moving all extremities; Absent altered mental status Results Data Completed and Pending Labs on day of discharge: Labs from last 24 hours 11/13/24 11/13/24 11/12/24 06:13 06:05 20:26 Sodium 136 Potassium 4.3 D Chloride 104 Carbon Dioxide 21 L Anion Gap 15.3 H Glucose 126 H POC Glucose 142 H 121 H Calcium 9.3 Magnesium 2.0 D Total Bilirubin 0.9 AST 52 ALT 101 H Alkaline Phosphatase 166 H Total Protein 7.5 Albumin 4.1 D Globulin 3.4 H Albumin/Globulin Ratio 1.2 11/12/24 11/12/24 16:05 10:49 Sodium Potassium Chloride Carbon Dioxide Anion Gap Glucose POC Glucose 130 H 140 H Calcium Magnesium Total Bilirubin AST ALT Alkaline Phosphatase Total Protein Albumin Globulin Albumin/Globulin Ratio DS: Diagnosis Discharge Diagnosis (1) NSTEMI (non-ST elevated myocardial infarction): Status: Acute Code(s): I21.4 - Non-ST elevation (NSTEMI) myocardial infarction Problem details: Type 2, no plaque rupture; supply-demand mismatch (2) Cardiac resynchronization therapy defibrillator (MALT SPECIFICATIONS CONTROL ASSISTANT-D) in place: Status: Acute Code(s): Z95.810 - Presence of automatic (implantable) cardiac defibrillator Problem details: Upgraded to CRTD September 2024 (3) Acute exacerbation of CHF (congestive heart failure): Status: Acute Code(s): I50.9 - Heart failure, unspecified Qualifiers: Heart failure type: systolic Qualified Code(s): I50.23 - Acute on chronic systolic (congestive) heart failure (4) HTN (hypertension): Status: Acute Code(s): I10 - Essential (primary) hypertension Qualifiers: Hypertension type: primary hypertension Qualified Code(s): I10 - Essential (primary) hypertension (5) Diabetes: Status: Chronic Code(s): E11.9 - Type 2 diabetes mellitus without complications (6) CAD (coronary artery disease): Status: Acute Code(s): I25.10 - Atherosclerotic heart disease of [place] coronary artery without angina pectoris (7) Automatic implantable cardioverter-defibrillator in situ: Status: Acute Code(s): Z95.810 - Presence of automatic (implantable) cardiac defibrillator Meds Home Medications and Allergies Home Medications ?Medication ?Instructions ?Recorded ?Confirmed ?Type metformin 500 mg tablet 500 mg PO BIDWMEAL 09/11/24 11/11/24 History amiodarone 200 mg tablet 200 mg PO DAILY #30 tabs 11/01/24 11/11/24 Rx aspirin 81 mg tablet,delayed 81 mg PO DAILY 30 days #30 tabs 11/01/24 11/11/24 Rx release atorvastatin 80 mg tablet 80 mg PO HS #30 tabs 11/01/24 11/11/24 Rx clopidogrel 75 mg tablet 75 mg PO DAILY #30 tabs 11/01/24 11/11/24 Rx dapagliflozin propanediol 10 mg 10 mg PO DAILY #30 tabs 11/01/24 11/11/24 Rx tablet (Farxiga) sacubitril 24 mg-valsartan 26 mg 1 tab PO BID #60 tabs 11/01/24 11/11/24 Rx tablet (Entresto) metoprolol succinate 25 mg 12.5 mg (1/2 x 25 mg) PO BID #30 11/07/24 11/11/24 Rx tablet,extended release 24 hr tabs Held on 11/13/24. Instructions: pending follow-up with Cardiology bumetanide 1 mg tablet 1 mg PO .qod #30 tabs 11/13/24 Rx New Prescriptions to Start Prescriptions: beccametMoises [place] Allergies Allergy/AdvReac Type Severity Reaction Status Date / Time No Known Allergies Allergy Verified 11/01/24 10:34 Discharge Plan Disposition Patient Disposition: Home, Self-Care Condition: Fair Discharge Order Discharge Orders: Discharge Order (Routine); Ordered 11/13/24 Ordered By: Moises Michael Follow up Plan Follow up with: Óscar Muñoz PA [Physician Engineering And Development Director, Cardiology] - 1 week Referral Note: CALL THURSDAY TO MAKE F/U Herbert Villar DO [Primary Care Provider, [facility]] - Enter time for follow up Referral Note: CALL THURSDAY TO MAKE FOLLOW-UP Prescriptions/Medication Reconciliation: New bumetanide 1 mg tablet 1 mg PO .qod Qty: 30 0RF Rx Instructions: take on Thursday, , Thursday Continued amiodarone 200 mg tablet 200 mg PO DAILY Qty: 30 5RF aspirin 81 mg tablet,delayed release (DR/EC) 81 mg PO DAILY 30 Days Qty: 30 7RF atorvastatin 80 mg tablet 80 mg PO HS Qty: 30 5RF clopidogrel 75 mg tablet 75 mg PO DAILY Qty: 30 7RF dapagliflozin propanediol [Farxiga] 10 mg tablet 10 mg PO DAILY Qty: 30 2RF sacubitril-valsartan [Entresto] 24-26 mg tablet 1 tab PO BID Qty: 60 5RF metformin 500 mg tablet 500 mg PO BIDWMEAL Patient Comments: TAKE 1 TABLET BY MOUTH TWICE DAILY WITH MORNING MEAL AND WITH EVENING MEAL Held metoprolol succinate 25 mg tablet extended release 24 hr 12.5 mg PO BID Qty: 30 6RF Hold Instructions: pending follow-up with Cardiology Problem Reconciliation Problems Reviewed?: Yes Patient Discharge Instructions ACTIVITY: Continue current activity DIET: continue same diet Patient Instructions: DI for Heart Failure, Stop Light Heart Failure Print Language: Occitan Providers Primary Care Provider: Herbert Villar Admit Provider: Moises Michael Attending Provider: Moises Michael
[2024-11-13 09:22] LABS: Blood Urea Nitrogen 29 mg/dl (9-20)
[2024-11-13] MEDS: humaLOG 100 UNITS/ML 10ML VIAL (SSI) SUBCUT (11:48)
[2024-11-13 13:32] LABS: Creatinine Clearance Estimated 66 mL/min (50-200); Creatinine,Serum 1.10 mg/dl (0.66-1.25); Estimated Glomerular Filt Rate 66 ml/min (>60); GFR (African American) 80 ML/MIN (>60)
--- NOTE | 2024-11-15 10:32 | SW/DCPLANNER ---
Spoke with patient's sister on the phone. Patient's sister stated that he is doing well. Patient's sister stated that she is aware of his upcoming appointments. Patient's sister stated that she was able to get his medicine picked up. Patient's sister stated that she has no concerns or questions at this time. Estelita MAN [employer]
== END 2024-11-13 13:58 | disposition home or self-care (01) | DRG 280 ==
LOC: ER 10:37 → ICU 10:50
PROVIDERS: Admitting Provider Internal Medicine Adolescent Medicine; Emergency Provider Student in an Organized Health Care Education/Training Program; PCP Internal Medicine; Visit Provider Internal Medicine Adolescent Medicine
DX: I11.0 Hypertensive heart disease with heart failure (principal); I50.23 Acute on chronic systolic (congestive) heart failure; I21.A1 Myocardial infarction type 2; I42.9 Cardiomyopathy, unspecified; I25.10 Atherosclerotic heart disease of native coronary artery without angina pectoris; E11.9 Type 2 diabetes mellitus without complications; E78.5 Hyperlipidemia, unspecified; D72.829 Elevated white blood cell count, unspecified; F17.210 Nicotine dependence, cigarettes, uncomplicated; R94.31 Abnormal electrocardiogram [ECG] [EKG]; Z95.5 Presence of coronary angioplasty implant and graft; Z95.0 Presence of cardiac pacemaker; Z71.6 Tobacco abuse counseling; Z79.84 Long term (current) use of oral hypoglycemic drugs; Z79.82 Long term (current) use of aspirin; Z79.02 Long term (current) use of antithrombotics/antiplatelets; Z79.899 Other long term (current) drug therapy
CPT/HCPCS: 36415; 71045; 80053; 82803; 82962; 83605; 83690; 83735; 83880; 84484; 85025; 87081; 93005; 99285; J1650; J1939; J2260; J3475; J7060